=== PATIENT | female | born 1980 | race Caucasian/White ===

== ENCOUNTER 2019-12-17 15:13 | Emergency (ER) | payer OTHER, SELFPAY ==
[2019-12-17 15:19] VITALS: BP 159/76; PULSE 100; RESP 18; TEMP 36.9; O2SAT 100
--- NOTE | 2019-12-17 15:38 | ED.URI ---
HPI - URI/Sore Throat General Chief Complaint: Upper Respiratory Infection Stated Complaint: cough/fever Time Seen by Provider: 12/17/19 15:38 Source: patient and RN notes reviewed Mode of arrival: ambulatory Limitations: no limitations History of Present Illness HPI Narrative: Pt is a 39 y/o female who presents to the with c/o a cough that started Tuesday (3 days ago). She reports associated fever of 99.9, KRISHNA, rhinorrhea, and myalgia. 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 Reports fever of 99.9 and myalgia Eyes: N0: Redness,discharge Ears/Nose/Throat: No: Epistaxis,ear discharge. Reports rhinorrhea Respiratory: Denies: Hemoptysis. Reports cough Gastrointestinal: No Vomiting, Bleeding-rectal Skin: No Lumps, eruption Neurologic: No Focal Weakness,Sz. Reports KRISHNA Hematologic: Denies: Petechiae/Purpura Psychiatric: No: Suicidal ideation All Other Systems: Reviewed and Negative PMFSH Past Medical History Medical History (Updated 12/17/19 @ 15:[address] MD) HTN (hypertension) MVP (mitral valve prolapse) Surgical History Surgical History (Updated 12/17/19 @ 15:46 by Jordyn Ryan) No significant past surgical history Social History Social History (Updated 12/17/19 @ 15:46 by Jordyn Ryan) Smoking status: Current some day smoker Comments At time of signature, agree with nursing past medical, surgical, social and family history. There is no relevant family history pertinent to the presenting complaint Exam Narrative: Exam Narrative: General Appearance: Well appearing, Well nourished EYE: PERRLA, Conjunctiva clear Ears: Auditory canal normal, TM normal Nose: Rhinorrhea, Mucousal erythema Mouth/Throat: MM moist, Uvula midline, Pharyngeal erythema Neck: Supple, No adenopathy Respiratory: No respiratory distress, Breath sounds equal, Clear to auscultation Cardiovascular: RRR, No JVD Musculoskeletal: Non tender, Normal strength Skin: Warm, Dry Neurological: A&O x3, CN II-XII intact Psychiatric: Normal mood, Normal affect Course Vital Signs Vital signs: Vital Signs Temperature 98.4 F 12/17/19 15:19 Pulse Rate 100 12/17/19 15:19 Respiratory Rate 18 12/17/19 15:19 Blood Pressure 159/76 H 12/17/19 15:19 Pulse Oximetry 100 12/17/19 15:19 Temperature 98.4 F 12/17/19 15:19 Pulse Rate 100 12/17/19 15:19 Respiratory Rate 18 12/17/19 15:19 Blood Pressure 159/76 H 12/17/19 15:19 Pulse Oximetry 100 12/17/19 15:19 MDM - URI/Sore Throat Lab Data Labs: Influenza A Screen Negative Reference Range: Negative Influenza B Screen Negative Reference Range: Negative Discharge Plan Discharge Clinical Impression: Influenza-like illness Patient Disposition: Home, Self-Care Condition: Stable Instructions: Influenza (ED), Acute Bronchitis (ED) Prescriptions: New azithromycin 250 mg tablet See Rx Instructions .ROUTE .COMPLEX Qty: 6 RF: 0 codeine-guaifenesin 10-100 mg/5 mL liquid 7.5 ml PO Q6H PRN (Reason: cough) Qty: 118 RF: 0 benzonatate [Tessalon Perles] 100 mg capsule 100 mg PO TID Qty: 20 RF: 1 oseltamivir [Tamiflu] 75 mg capsule 75 mg PO Q12H 5 Days Qty: 10 RF: 0 No Action met
== END 2019-12-17 15:55 | disposition home or self-care (01) ==
PROVIDERS: Emergency Provider Emergency Medicine
DX: R05 Cough (principal); R50.9 Fever, unspecified; I10 Essential (primary) hypertension; I34.1 Nonrheumatic mitral (valve) prolapse
CPT/HCPCS: 87804; 99213; G0463

== ENCOUNTER 2020-11-01 18:05 | Emergency (ER) | payer OTHER, SELFPAY ==
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
[2020-11-01 18:13] VITALS: BP 148/91; PULSE 85; RESP 22; TEMP 36.6; O2SAT 99
[2020-11-01 19:00] VITALS: BP 163/95; PULSE 93; RESP 13; O2SAT 98
[2020-11-01 20:00] VITALS: BP 151/82; PULSE 93; RESP 19; TEMP 36.8; O2SAT 99
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
[2020-11-01] MEDS: methocarbamoL 750 MG TABLET PO (22:21)
[2020-11-01] MEDS: IBUPROFEN 400 MG TABLET 800 MG PO (22:22)
[2020-11-01 22:26] VITALS: BP 147/84; PULSE 97; RESP 16; TEMP 36.8; O2SAT 97
== END 2020-11-01 22:28 | disposition home or self-care (01) ==
PROVIDERS: Emergency Provider Emergency Medicine
DX: S29.012A Strain of muscle and tendon of back wall of thorax, initial encounter (principal); I10 Essential (primary) hypertension; I34.1 Nonrheumatic mitral (valve) prolapse; F17.200 Nicotine dependence, unspecified, uncomplicated; M50.323 Other cervical disc degeneration at C6-C7 level; V49.40XA Driver injured in collision with unspecified motor vehicles in traffic accident, initial encounter
CPT/HCPCS: 70450; 71045; 72125; 72128; 72131; 72170; 99284; A9270

== ENCOUNTER 2021-05-26 06:15 | Emergency (ER) | payer OTHER, SELFPAY ==
[2021-05-26] VITALS (10 sets, daily range): BP systolic 126–181; BP diastolic 67–94; PULSE 66–88; RESP 11–93; TEMP 36.6–36.8; O2SAT 96–100
--- NOTE | 2021-05-26 08:10 | ED.GENADULT ---
HPI - General Adult General Chief complaint: Unspecified Stated complaint: bug in ear Time Seen by Provider: 05/26/21 07:03 Source: patient and RN notes reviewed Mode of arrival: ambulatory Limitations: no limitations History of Present Illness HPI narrative: This is a 41 year old female who presents for removal of bug in right ear. She reports approximately 1 hour ago a bug got into her right ear. Prior to my evaluation, she states removal has been attempted with irrigation without success. She reports her right ear canal is painful. She does not feel this bug moving any more. Onset (ago): hour(s) (1) Related Data Home Medications Medication Instructions Recorded Confirmed metoprolol tartrate 25 mg PO DAILY 09/11/19 05/26/21 escitalopram oxalate 10 mg tablet 10 mg PO DAILY 05/26/21 05/26/21 Allergies Allergy/AdvReac Type Severity Reaction Status Date / Time No Known Allergies Allergy Verified 05/26/21 11:04 Review of Systems Review of Systems: All systems reviewed & are unremarkable except as noted in HPI and below PMFSH Past Medical History Medical History HTN (hypertension) MVP (mitral valve prolapse) Surgical History Surgical History No significant past surgical history Family History Family History Father Diabetes mellitus Hypertension Cerebrovascular accident Mother Depression Sibling Depression Other Depression Social History Social History Smoking status: Current some day smoker Alcohol intake: never Substance use: never Substance use type: does not use Gender identity (if verbalized by the patient): Female Exam Const: General: healthy appearing, alert, awake and Physically active Orientation/consciousness: oriented to person, oriented to place, oriented to time and patient oriented x3 HENMT: Head: normocephalic and atraumatic Ears: other (right ear with black insect with wings in canal, no bleeding) Face and sinus: normal facial exam, sinuses nontender and face symmetric Mouth: Yes Normal oral and palatal mucosa present, Yes lip normal, Yes oropharynx normal and Yes moist mucous membranes Throat: posterior oropharynx normal, tonsils normal and uvula midline Chest: Chest palpation & inspection: normal inspection of the chest Resp: Effort & Inspection: normal respiratory effort and able to speak in complete sentences Auscultation: clear to auscultation bilaterally Psych: Appearance: grossly normal and well kempt Mental Status: mental status grossly normal Course Reevaluation(s) Reevaluation #1: I attempted to remove insect from patient. Patient unable to tolerate removal in ER even after lidocaine jelly. She was given 4 versed without much affect. . She is agreeable to go to see ENT today for foreign body removal. I made appointment for patient with Dr. Crockett at 11 am Date: 05/26/21 Time: 09:45 Consultations Consultation #1: I spoke with DR. Crockett who states patient can be seen in office. He recommends calling clinic to make patient an appointment. Date: 05/26/21 Time: 09:00 Vital Signs Vital signs: Vital Signs Temperature 97.9 F 05/26/21 06:14 Pulse Rate 88 05/26/21 06:14 Respiratory Rate 22 H 05/26/21 06:14 Blood Pressure 144/78 H 05/26/21 06:14 Pulse Oximetry 100 05/26/21 06:14 Temperature 97.8 F 05/26/21 09:42 Pulse Rate 71 05/26/21 10:23 Respiratory Rate 17 05/26/21 10:23 Blood Pressure 144/75 H 05/26/21 10:23 Pulse Oximetry 98 05/26/21 10:23 Procedures Foreign Body Removal Foreign Body #1: Foreign Body Removal Date: 05/26/21 Site: right and ear Description of foreign body: insect Sedation/Analgesia: other (versed 4 mg) Complications: sandy
[2021-05-26] MEDS: HYDROGEN PEROXIDE 3% SOLN(*SP) 473 ML BOTTLE (08:34)
--- NOTE | 2021-05-26 08:40 | PC.NURSE ---
ED at bedside for foreign body removal in the right ear. Consent obtained prior to procedure. 0844 1mg mid[address] given by Dr. Matson 0844 1mg [address] given by Dr. Matson 0847 [address]mg [address] given by Dr. Matson
[2021-05-26] MEDS: SODIUM CHLORIDE 0.9% IV 1,000 ML 1000 ML (08:44)
[2021-05-26] MEDS: MIDAZOLAM HCL (*CRX) 10 MG/2 ML VIAL (09:17)
== END 2021-05-26 10:24 | disposition home or self-care (01) ==
PROVIDERS: Emergency Provider General Practice
DX: T16.1XXA Foreign body in right ear, initial encounter (principal); X58.XXXA Exposure to other specified factors, initial encounter
CPT/HCPCS: 69200; 99285; A9270; J2250; J7030

== ENCOUNTER 2021-08-12 13:44 | Emergency (ER) | payer OTHER, SELFPAY ==
[2021-08-12 13:56] VITALS: BP 154/94; PULSE 104; RESP 18; TEMP 37.4; O2SAT 98
--- NOTE | 2021-08-12 14:30 | ED.URI ---
HPI - URI/Sore Throat General Chief Complaint: Upper Respiratory Infection Stated Complaint: Cough,Chest Congestion,Throat Irritation,Nausea Source: patient and RN notes reviewed Limitations: no limitations History of Present Illness HPI Narrative: The vaccinated patient, a smoker/nondrinker, presents with 1 to 2-day worsening of 2-week history of sinus headache, fever 101 for couple days, cough, congestion and occasional sneezing . Nasal discharge is usually clear, now turned greenish; despite OTC preparations like Bertha-D. She had a Covid test this week; no sore throat, earache, vomiting/diarrhea-but she has nausea, lightheadedness; no loss of taste/smell, CP, rash, S OB Related Data Home Medications Medication Instructions Recorded Confirmed metoprolol tartrate 25 mg PO DAILY 09/11/19 08/12/21 escitalopram oxalate 10 mg tablet 10 mg PO DAILY 05/26/21 08/12/21 Allergies Allergy/AdvReac Type Severity Reaction Status Date / Time No Known Allergies Allergy Verified 08/12/21 13:56 Review of Systems Review of Systems: General/Constitutional: No weight loss,REPORTS fever Eyes: N0: Redness,discharge Ears/Nose/Throat: No: Epistaxis,ear discharge Respiratory: Denies: Hemoptysis Gastrointestinal: No Vomiting, Bleeding-rectal Skin: No Lumps, eruption Neurologic: No Focal Weakness,Sz Hematologic: Denies: Petechiae/Purpura Psychiatric: No: Suicida ideationl All Other Systems: Reviewed and Negative [facility] Past Medical History Medical History HTN (hypertension) MVP (mitral valve prolapse) Surgical History Surgical History No significant past surgical history Family History Family History Father Diabetes mellitus Hypertension Cerebrovascular accident Mother Depression Sibling Depression Other Depression Social History Social History Smoking status: Current some day smoker Alcohol intake: never Substance use: never Substance use type: does not use Gender identity (if verbalized by the patient): Female Comments At time of signature, agree with nursing past medical, surgical, social and family history. There is no relevant family history pertinent to the presenting complaint Exam Narrative: General Appearance: Well appearing, Well nourished EYE: PERRLA, Conjunctiva clear Ears: Auditory canal normal, TM normal Nose: Rhinorrhea, Mucousal erythema Mouth/Throat: MM moist, Uvula midline, Pharyngeal erythema Neck: Supple, No adenopathy Respiratory: No respiratory distress, Breath sounds equal, Clear to auscultation Cardiovascular: RRR, No JVD Musculoskeletal: Non tender, Normal strength Skin: Warm, Dry Neurological: A&O x3, CN II-XII intact Psychiatric: Normal mood, Normal affect Course Vital Signs Vital signs: Vital Signs Temperature 99.4 F 08/12/21 13:56 Pulse Rate 104 H 08/12/21 13:56 Respiratory Rate 18 08/12/21 13:56 Blood Pressure 154/94 H 08/12/21 13:56 Pulse Oximetry 98 08/12/21 13:56 Temperature 99.4 F 08/12/21 13:56 Pulse Rate 104 H 08/12/21 13:56 Respiratory Rate 18 08/12/21 13:56 Blood Pressure 154/94 H 08/12/21 13:56 Pulse Oximetry 98 08/12/21 13:56 Discharge Plan Discharge Clinical Impression: Sinus headache, Cough Patient Disposition: Home, Self-Care Condition: Stable Instructions: Antibiotic Form, Rhinosinusitis (ED) Additional Instructions: You may try OTC preparations like Bertha, Flonase, etc. Prescriptions: New benzonatate 100 mg capsule 100 mg PO TID PRN (Reason: cough) Qty: 20 RF: 2 azelastine 137 mcg (0.1 %) aerosol,spray 137 mcg NASAL Q12H Qty: 30 RF: 0 cefuroxime axetil 500 mg tablet 500 mg PO Q12H Qty: 14 RF: 0 No Action metoprolol tartra
[2021-08-13 17:50] LABS: SARS-CoV-2 RNA PCR Negative
== END 2021-08-12 14:36 | disposition home or self-care (01) ==
PROVIDERS: Emergency Provider Emergency Medicine
DX: J32.9 Chronic sinusitis, unspecified (principal); R05.9 Cough, unspecified; Z20.822 Contact with and (suspected) exposure to COVID-19; F17.200 Nicotine dependence, unspecified, uncomplicated; I10 Essential (primary) hypertension; I34.1 Nonrheumatic mitral (valve) prolapse
CPT/HCPCS: 99213; C9803; G0463; U0003; U0005

== ENCOUNTER 2022-08-16 14:08 | Emergency (ER) | payer OTHER, SELFPAY ==
--- NOTE | 2022-08-16 14:16 | ED.UPPEXIN ---
HPI - Extremity Injury (Upper) General Chief Complaint: Upper Respiratory Infection Stated Complaint: cold symptoms/rt eye pain and swelling Time Seen by Provider: 08/16/22 14:22 Source: patient Mode of arrival: ambulatory Limitations: no limitations History of Present Illness HPI narrative: Ms. Palma is a 42-year-old female patient presenting to clinic today with complaints of upper respiratory infection and right eye pain and swelling x 10 days. She reports she has had sinus pressure, congestion, right ear pain, and right eyelid swelling. She denies any known fever chills. She has taken Mucinex, Sudafed, Viola-Aurelia for her symptoms. She states she just woke up this morning and her right eyelid was swollen. She reports some pain to this. Denies any itching Related Data Home Medications Medication Instructions Recorded Confirmed metoprolol tartrate 25 mg tablet 25 mg PO DAILY 09/11/19 08/16/22 escitalopram oxalate 10 mg tablet 20 mg PO DAILY 05/26/21 08/16/22 (Lexapro) Allergies Allergy/AdvReac Type Severity Reaction Status Date / Time No Known Allergies Allergy Verified 08/16/22 14:18 Review of Systems Review of Systems: Pertinent positives per HPI. Patient denies any fever, chills, rash, headache, visual changes, dizziness, cough, shortness of breath, chest pain, palpitations, nausea, vomiting, diarrhea, constipation, abdominal pain, or any urinary issues. [facility] Past Medical History Medical History HTN (hypertension) MVP (mitral valve prolapse) Surgical History Surgical History No significant past surgical history Family History Family History Father Diabetes mellitus Hypertension Cerebrovascular accident Mother Depression Sibling Depression Other Depression Social History Social History Smoking status: Current some day smoker Alcohol intake: never Substance use: never Substance use type: does not use Gender identity (if verbalized by the patient): Female Comments At the time of my signature, I reviewed and agree with the nursing past medical, surgical, social, and family history. There is no relevant family history pertinent to the patient complaint. Exam Narrative: General: Well-developed, well nourished, in no apparent distress Head: Normocephalic, atraumatic Eyes: Pupils equally round and reactive to light bilaterally, EOM intact, sclera and conjunctive clear, no discharge, lids normal Ears: Left TMs intact and clear, right TM intact, bulging, opaque, ear canals clear, no drainage, grossly hearing normal. Nose: Nares patent, clear nasal discharge, severe inflammation, maxillary sinus tenderness. Mouth: Oral pharynx without lesions or masses, good dentition, MMM. Postnasal drip, oropharynx red Neck: Supple, trachea midline, no enlargement of anterior or posterior cervical nodes, no thyroid masses or goiter palpable. Cardio: Regular rate and rhythm, s1 and s2 normal, no murmur appreciated. Resp: Clear to auscultation bilaterally, no rhonchi, rales, wheezing or rubs Course Course Emergency Course: Portions of this record may have been created with voice recognition software. Level of Care: Express Care Visit Vital Signs Vital signs: Vital signs reviewed MDM - Extremity Injury (Upper) MDM Narrative Medical decision making narrative: At the time of visit patient is resting comfortably on exam table. I suspect the patient has serous otitis media the right ear as well as a sinus infection. She also has right upper eyelid swelling that could be possible stye formation versus an allergy response. Supportive measures were discussed with the patient she voiced understanding of discharge instructions and agrees to tr
[2022-08-16 14:22] VITALS: BP 136/69; PULSE 100; RESP 18; TEMP 36.7; O2SAT 99
== END 2022-08-16 14:38 | disposition home or self-care (01) ==
PROVIDERS: Emergency Provider Nurse Practitioner Family; PCP Family Medicine
DX: J01.90 Acute sinusitis, unspecified (principal); H57.11 Ocular pain, right eye; H02.843 Edema of right eye, unspecified eyelid; H65.01 Acute serous otitis media, right ear; F17.290 Nicotine dependence, other tobacco product, uncomplicated; I10 Essential (primary) hypertension; I34.1 Nonrheumatic mitral (valve) prolapse
CPT/HCPCS: 99213; G0463

== ENCOUNTER 2023-10-27 17:28 | Emergency (ER) | payer OTHER, SELFPAY ==
--- NOTE | 2023-10-27 17:39 | ED.URI ---
HPI - URI/Sore Throat General Chief Complaint: Upper Respiratory Infection Stated Complaint: cough,sorethroat Time Seen by Provider: 10/27/23 17:39 Source: patient Mode of arrival: ambulatory Limitations: no limitations History of Present Illness HPI Narrative: Nora is a 43-year-old female patient presenting to the clinic today with complaints of cough, headache, congestion, body aches, fever and sore throat x3 days. She reports highest fever was 101.8. Denies any chest pain or shortness of breath. MD elicited complaint: sore throat and nasal congestion Related Data Home Medications Medication Instructions Recorded Confirmed metoprolol tartrate 25 mg tablet 25 mg PO DAILY 09/11/19 10/27/23 irbesartan 300 mg tablet mg 10/27/23 10/27/23 Allergies Allergy/AdvReac Type Severity Reaction Status Date / Time No Known Allergies Allergy Verified 10/27/23 17:52 Review of Systems Review of Systems: Pertinent positives per HPI. Patient denies any rash, headache, visual changes, dizziness, shortness of breath, chest pain, palpitations, nausea, vomiting, diarrhea, constipation, abdominal pain, or any urinary issues. PMFSH Past Medical History Medical History HTN (hypertension) MVP (mitral valve prolapse) Surgical History Surgical History No significant past surgical history Family History Family History Father Diabetes mellitus Hypertension Cerebrovascular accident Mother Depression Sibling Depression Other Depression Social History Social History Smoking status: Current some day smoker Alcohol intake: never Substance use: never Substance use type: does not use Gender identity (if verbalized by the patient): Female Comments At the time of my signature, I reviewed and agree with the nursing past medical, surgical, social, and family history. There is no relevant family history pertinent to the patient complaint. Exam Narrative: General: Well-developed, well nourished, in no apparent distress Head: Normocephalic, atraumatic Eyes: Pupils equally round and reactive to light bilaterally, EOM intact, sclera and conjunctive clear, no discharge, lids normal Ears: TMs intact and congested, ear canals clear, no drainage, grossly hearing normal. Nose: Nares patent, clear nasal discharge, no inflammation, no sinus tenderness. Mouth: Oral pharynx without lesions or masses, good dentition, MMM. Postnasal drip Neck: Supple, trachea midline, no enlargement of anterior or posterior cervical nodes, no thyroid masses or goiter palpable. Cardio: Regular rate and rhythm, s1 and s2 normal, no murmur appreciated. Resp: Clear to auscultation bilaterally, no rhonchi, rales, wheezing or rubs Course Course Emergency Course: Portions of this record may have been created with voice recognition software. Level of Care: Express Care Visit Vital Signs Vital signs: Vital signs reviewed MDM - URI/Sore Throat MDM Narrative Medical decision making narrative: At the time of visit patient is resting comfortably on the exam table. Patient appears to be nontoxic. Labs: COVID and influenza testing was performed. COVID test was negative. Influenza test was positive for influenza A. Plan: Patient has influenza A. Work note was given. Supportive measures were discussed with the patient and they voiced understanding discharge instructions and agrees to treatment plan. Return precautions reviewed Differential Diagnosis Differential diagnosis: Likely upper respiratory infection, otitis media, sinusitis, viral infection, bronchitis, influenza, pharyngitis and other (COVID) Discharge Plan Discharge Clinical Impression: Influenza A Patient Disposition: Home, Self-Car
[2023-10-27 17:43] VITALS: BP 132/76; PULSE 89; RESP 18; TEMP 36.8; O2SAT 98
== END 2023-10-27 18:20 | disposition home or self-care (01) ==
PROVIDERS: Emergency Provider Nurse Practitioner Family; PCP Family Medicine
DX: J10.1 Influenza due to other identified influenza virus with other respiratory manifestations (principal); I10 Essential (primary) hypertension; F17.200 Nicotine dependence, unspecified, uncomplicated; Z79.899 Other long term (current) drug therapy; Z20.822 Contact with and (suspected) exposure to COVID-19
CPT/HCPCS: 87426; 87804; 99213; G0463

== ENCOUNTER 2024-09-30 12:47 | Emergency (ER) | payer MEDICAID, SELFPAY ==
[2024-09-30 13:07] VITALS: BP 133/83; PULSE 93; RESP 16; TEMP 37.1; O2SAT 100
--- NOTE | 2024-09-30 14:11 | ED_ITS ---
HPI - URI/Sore Throat General Chief Complaint: Upper Respiratory Infection Stated Complaint: Thinks has the flu Source: patient and RN notes reviewed Mode of arrival: ambulatory Limitations: no limitations History of Present Illness HPI Narrative: 44-year-old female with a history of atrial fibrillation presented for complaint of headache, body aches, sinus pressure/congestion, fever/chills. Onset this morning. States she woke with fever of 103. Denies sob, wheezing, n/v/d. Taking ibuprofen. MD elicited complaint: cough Related Data Home Medications ?Medication ?Instructions ?Recorded ?Confirmed ?Last Taken ?Type metoprolol tartrate 25 mg tablet 25 mg PO DAILY 09/11/19 10/27/23 Unknown History irbesartan 300 mg tablet 300 mg DIRECTED 10/27/23 10/27/23 Unknown History Allergies Allergy/AdvReac Type Severity Reaction Status Date / Time No Known Allergies Allergy Verified 09/30/24 14:16 Review of Systems Review of Systems: CONSTITUTIONAL: Endorses malaise, chills, sweats, fever EYES: Denies visual changes, redness, or discharge ENT: Reports rhinorrhea, congestion, sinus pain, otalgia, sore throat CARDIOVASCULAR: Denies chest pain, palpitations, edema RESPIRATORY: Reports cough, post nasal drainage. Denies dyspnea GASTROINTESTINAL: Denies abdominal pain, nausea, vomiting, diarrhea MUSCULOSKELETAL: Endorses myalgia NEUROLOGIC: Endorses headache PMFSH Past Medical History Medical History (Updated 09/30/24 @ 14:20 by Pretty Baum APRN) Atrial fibrillation HTN (hypertension) MVP (mitral valve prolapse) Surgical History Surgical History (Updated 09/30/24 @ 14:20 by Pretty Baum APRN) History of cardiac radiofrequency ablation No significant past surgical history Family History Family History Father Diabetes mellitus Hypertension Cerebrovascular accident Mother Depression Sibling Depression Other Depression Social History Social History Smoking status: Current some day smoker Alcohol intake: never Substance use: never Substance use type: does not use Gender identity (if verbalized by the patient): Female Exam Narrative: GENERAL: Ill-appearing, nontoxic EYES: conjunctivae clear ENT: Mucous membranes moist. TMs pearly law with dull light reflex bilaterally; no tragal tenderness. Oropharynx not erythematous without lesions or exudate, no drooling, no hoarseness, no trismus, uvula midline. No tripod positioning, muffled voice, soft palate or pharyngeal wall bulging NECK: Supple. No lymphadenopathy CHEST: Clear to auscultation, breath sounds equal. No wheezing, rhonchi, rales, or stridor. No respiratory distress, speaks in full sentences. HEART: irregular rhythm. No murmur heard. SKIN: Warm, dry NEURO: Alert and oriented x3. PSYCH: Normal mood and affect Course Course Emergency Course: Patient is aware of diagnosis, understands and agrees to treatment plan. Anticipatory guidance given. Patient agrees to follow-up as directed and is aware of reasons to seek care at the emergency department. Portions of this record may have been created with voice recognition software Level of Care: Express Care Visit Vital Signs Vital signs: Vital Signs Temperature 98.7 F 09/30/24 13:07 Pulse Rate 93 09/30/24 13:07 Respiratory Rate 16 09/30/24 13:07 Blood Pressure 133/83 09/30/24 13:07 Pulse Oximetry 100 09/30/24 13:07 Temperature 98.7 F 09/30/24 13:07 Pulse Rate 93 09/30/24 13:07 Respiratory Rate 16 09/30/24 13:07 Blood Pressure 133/83 09/30/24 13:07 Pulse Oximetry 100 09/30/24 13:07 reviewed MDM - URI/Sore Throat MDM Narrative Medical decision making narrative: POS covid. Discussed physical exam findings. Advised supportive measures and signs/symptoms to go to the ER. Pt is appropriate for outpt treatment and f/u. Differential Diagnosis Differential diagnosis: Likely upper respiratory infection, sinusitis and viral infection Discharge Plan Discharge Clinical Impression: COVID-19 Patient Disposition: Home, Self-Care Condition: Stable Instructions: COVID-19 (Coronavirus Disease 2019) (ED) Additional Instructions: Your rapid COVID test was positive today. The following updated recommendations have been made by the CDC and local Health Departments, regarding COVID-19: - When people get sick with a respiratory virus, they stay home and away from others. - Return to normal activities when, for at least 24 hours, symptoms are improving overall, and if a fever was present, it has been gone without use of a fever-reducing medication. - Once people resume normal activities, they are encouraged to take additional prevention strategies for the next 5 days to curb disease spread, such as taking more steps for cleaner carpet and upholstery air, enhancing hygiene practices, wearing a well-fitting mask, keeping a distance from others, and/or getting tested for respiratory viruses. - Enhanced precautions are especially important to protect those most at risk for severe illness, including those over 65 and people with weakened immune systems. Rest, stay hydrated. Tylenol and ibuprofen every 8 hours as needed Flonase/nasal spray, Zyrtec, cough syrup cold/flu medications for symptoms as needed Follow up with your primary care provider, call to schedule an appointment. Go to the ER for worsening symptoms or concerns. Patient Language: Maori Prescriptions: No Action metoprolol tartrate 25 mg Tablet 25 mg PO DAILY irbesartan 300 mg tablet 300 mg DIRECTED Follow-up/Referrals: Dennis,Dominick Polk APRN [Primary Care Provider] - Stand Alone Forms: Work/School Release IP Time of Disposition: 14:17
[2024-09-30 14:16] LABS: EDCOVIDSCREEN Negative (Negative); EDINFLUASCREEN Negative (Negative); EDINFLUBSCREEN Negative (Negative); EDSTREPNEGPOS1 Negative (Negative)
--- OUTSIDE RECORDS SUMMARY | 2024-10-07 14:23 | XMS_ITS | Clinical Summary ---
Author Organization [facility] Address [address] [place] [address]. [place] [address] [place] [address] Care Team Providers Care Ecological Economist Name Role Phone Giulia Kirkpatrick MD Primary Care Provider [phone] Allergies No known active allergies Medications metoprolol succinate ER (TOPROL-XL) 50 MG 24 hr tablet Take by mouth daily. Active irbesartan (AVAPRO) 300 MG tablet Take 1 tablet (300 mg total) by mouth daily. Active flecainide (TAMBOCOR) 50 MG tablet Take by mouth 2 (two) times daily. Active magnesium oxide (MAG-OX) 400 (240 Mg) MG tablet Take 1 tablet (400 mg total) by mouth daily. Active Social History Tobacco Use Types Packs/Day Years Used Date Smoking Tobacco: Former Cigarettes - 1994 Smokeless Tobacco: Never Tobacco Cessation:Counseling Given: Not Answered Alcohol Use Standard Drinks/Week Comments Never 0 (1 standard drink = 0.6 oz pur e alcohol) Comments No Sex and Gender Information Value Date Recorded Sex Assigned at Not on file Legal Sex Female 4:10 PM CDT Gender Identity Not on file Sexual Orientation Not on file Last Filed Vital Signs Vital Sign Reading Time Taken Comments Blood Pressure 131/71 03/27/2024 7:35 PM CDT Pulse 60 03/27/2024 7:35 PM CDT Temperature 36.7 ??C (98 ??F) 03/27/2024 7:36 PM CDT Respiratory Rate 15 03/27/2024 7:35 PM CDT Oxygen Saturation 100% 03/27/2024 7:35 PM CDT Inhaled Oxygen Concentration - - Weight 85.7 kg (189 lb) 03/27/2024 4:17 PM CDT Height 162.6 cm (5' 4 ) 03/27/2024 4:17 PM CDT Body Mass Index 32.44 03/27/2024 4:17 PM CDT Plan of Treatment Health Maintenance Due Date Last Done Comments Colorectal Cancer Screening Colonoscopy (10 Years) 1978 Annual Physical 1981 Hepatitis C 1996 DTaP, Tdap and Td Vaccines ( 1 - Tdap) 1997 Hepatitis B Vaccines (1 of 3 - 19+ 3-dose series) 1997 Mammogram Screening 2018 COVID-19 Vaccine (2023-2 5 season) 2024 01/21/2021, 12/21/2020 Influenza Adult (#1) 2024 07/05/2019, 09/04/2018, 07/03/2017 Meningococcal Vaccine Aged Out No santos andrés eligible based on patient's age to complete this topic Pneumococcal Vaccine: Pediatrics (0 to 5 Years) and At-Risk Patients (6 to 64 Years) Aged Out No longer eligible b ased on patient's age to complete this topic RSV Immunizations Under 20 Months Aged Out No longer eligible b ased on patient's age to complete this topic Insurance [employer] Care Teams Ecological Economist Relationship Specialty Start Date End Date Giulia Kirkpatrick MD [address] [place] [address] [place] [address] PCP - General FAMILY PRACTICE 03/27/24
--- OUTSIDE RECORDS SUMMARY | 2024-10-07 14:23 | XMS_ITS | Encounter Summary ---
Author Organization [facility] Address [address] [place] [address] Care Team Providers Care Report Manager Name Role Phone Easton Bryant DO Primary Care Provider [phone] Reason for Visit * Reason Comments Sinusitis Encounter Details Date Type Department Care Team (Late st Contact Info) Description 10/19/2017 3:20 PM HOME OFFICE REPRESENTATIVE Office Visit [facility] AT [address] [phone] Provider, Gisselle Sanchez [place] Acute maxillary sinusitis, recurrence not specified (Primary Dx); Dysfunction of right eustachian tube; Essential hypertension Social History Tobacco Use Types Packs/Day Years Used Date Smoking Tobacco: Former Smokeless Tobacco: Never Sex and Gender Information Value Date Recorded Sex Assigned at Not on file Gender Identity Not on file Sexual Orientation Not on file documented as of this encounter Last Filed Vital Signs Vital Sign Reading Time Taken Comments Blood Pressure 126/88 10/19/2017 3:30 PM HOME OFFICE REPRESENTATIVE Pulse 70 10/19/2017 3:30 PM HOME OFFICE REPRESENTATIVE Temperature 36.9 ??C (98.4 ??F) 10/19/2017 3:30 PM CS T Respiratory Rate 16 10/19/2017 3:30 PM HOME OFFICE REPRESENTATIVE Oxygen Saturation 99% 10/19/2017 3:30 PM HOME OFFICE REPRESENTATIVE Inhaled Oxygen Concentration - - Weight 74.8 kg (165 lb) 10/19/2017 3:30 PM HOME OFFICE REPRESENTATIVE Height 160 cm (5' 3 ) 10/19/2017 3:30 PM HOME OFFICE REPRESENTATIVE Body Mass Index 29.23 10/19/2017 3:30 PM HOME OFFICE REPRESENTATIVE documented in this encounter Patient Instructions * Patient Instructions* Iza Rhoades, BUDGET ENGINEER-MAKING MACHINE CATCHER - 10/19/2017 3:59 PM HOME OFFICE REPRESENTATIVE Images from the original note were not included. Sinusitis CONTACT CENTER ANALYST: Sinusitis is inflammation or infection of your sinuses. It is most often caused by a virus. Acute sinusitis may last up to 12 weeks. Chronic sinusitis lasts longer than 12 weeks. Recurrent sinusitis means you have 4 or more times in 1 year. Common symptoms include the following: ?? Fever ?? Pain, pressure, redness, or swelling around the forehead, cheeks, or eyes ?? Thick yellow or green discharge from your nose ?? Tenderness when you touch your face over your sinuses ?? Dry cough that happens mostly at night or when you lie down ?? Headache and face pain that is worse when you lean forward ?? Tooth pain, or pain when you chew Seek care immediately if: ?? Your eye and eyelid are red, swollen, and painful. ?? You cannot open your eye. ?? You have vision changes, such as double vision. ?? Your eyeball bulges out or you cannot move your eye. ?? You are more sleepy than normal, or you notice changes in your ability to think, move, or talk. ?? You have a stiff neck, a fever, or a bad headache. ?? You have swelling of your forehead or scalp. Contact your healthcare provider if: ?? Your symptoms do not improve after 3 days. ?? Your symptoms do not go away after 10 days. ?? You have nausea and are vomiting. ?? Your nose is bleeding. ?? You have questions or concerns about your condition or care. Treatment for sinusitis: Your symptoms may go away on their own. Your healthcare provider may recommend watchful waiting for up to 10 days before starting antibiotics. You may need any of the following: ?? Acetaminophen decreases pain and fever. It is available without a doctor's order. Ask how much to take and how often to take it. Follow directions. Read the labels of all other medicines you are using to see if they also contain acetaminophen, or ask your doctor or pharmacist. Acetaminophen can cause liver damage if not taken correctly. Do not use more than 4 grams (4,000 milligrams) total of acetaminophen in one day. ?? NSAIDs , such as ibuprofen, help decrease swelling, pain, and fever. This medicine is available with or without a doctor's order. NSAIDs can cause stomach bleeding or kidney problems in certain people. If you take blood thinner medicine, always ask your healthcare provider if NSAIDs are safe foryou. Always read the medicine label and follow directions. ?? Nasal steroid sprays may help decrease inflammation in your nose and sinuses. ?? Decongestants help reduce swelling and drain mucus in the nose and sinuses. They may help you breathe easier. ?? Antihistamines help dry mucus in the nose and relieve sneezing. ?? Antibiotics help treat or prevent a bacterial infection. ?? Take your medicine as directed. Contact your healthcare provider if you think your medicine is not helping or if you have side effects. Tell him or her if you are allergic to any medicine. Keep a list of the medicines, vitamins, and herbs you take. Include the amounts, and when and why you take them. Bring the list or the pill bottles to follow-up visits. Carry your medicine list with you in case of an emergency. Self-care: ?? Rinse your sinuses. Use a sinus rinse device to rinse your nasal passages with a saline (salt water) solution or distilled water. Do not use tap water. This will help thin the mucus in your nose and rinse away pollen and dirt. It will also help reduce swelling so you can breathe normally. Ask your healthcare provider how often to do this. ?? Breathe in steam. Heat a bowl of water until you see steam. Lean over the bowl and make a tent over your head with a large towel. Breathe deeply for about 20 minutes. Be careful not to get too close to the steam or burn yourself. Do this 3 times a day. You can also breathe deeply when you take ahot shower. ?? Sleep with your head elevated. Place an extra pillow under your head before you go to sleep to help your sinuses drain. ?? Drink liquids as directed. Ask your healthcare provider how much liquid to drink each day and which liquids are best for you. Liquids will thin the mucus in your nose and help it drain. Avoid drinks that contain alcohol or caffeine. ?? Do not smoke, and avoid secondhand smoke. Nicotine and other chemicals in cigarettes and cigars can make your symptoms worse. Ask your healthcare provider for information if you currently smoke and need help to quit. E-cigarettes or smokeless tobacco still contain nicotine. Talk to your healthcare provider before you use these products. Prevent the spread of germs that cause sinusitis: Wash your hands often with soap and water. Wash your hands after you use the bathroom, change a child's diaper, or sneeze. Wash your hands before youprepare or eat food. Follow up with your healthcare provider as directed: You may be referred to an ear, nose, and throat specialist. Write down your questions so you remember to ask them during your visits. ?? 2017 [employer] Information is for End User's use only and may not be sold, redistributed or otherwise used for commercial purposes. All illustrations and images included in CareNotes?? are the copyrighted property of [employer]. or [employer]. The above information is an unpaid intern only. It is not intended as medical advice for individual conditions or treatments. Talk to your doctor, nurse or pharmacist before following any medical regimen to see if it is safe and effective for you. Eustachian Tube Dysfunction WHAT YOU NEED TO KNOW: What is eustachian tube dysfunction? Eustachian tube dysfunction (ETD) is a condition that preventsyour eustachian tubes from opening properly. It can also cause them to become blocked. Eustachian tubes connect your middle ear to the back of your nose and throat. These tubes open and allow air to flow in and out when you sneeze, swallow, or yawn. What causes or increases my risk of ETD? ETD may be caused by swelling or buildup of mucus in your eustachian tubes. Allergies, a cold, or sinus infection can increase your risk for ETD. Smoking alsoincreases your risk for ETD. What are the signs and symptoms of ETD? ?? Fullness or pressure in your ears ?? Muffled hearing ?? Pain in one or both ears ?? Ringing in your ears ?? Popping or clicking feeling in your ears ?? Trouble keeping your balance How is ETD diagnosed? Your healthcare provider will ask about your symptoms. He will examine your ears, your nose, and the back of your throat. He may also do a hearing test. How is ETD treated? Your ETD may get better on its own without any treatment. You may need any of the following: ?? Exercises such as swallowing, yawning, or chewing gum may help to open your eustachian tubes. Your healthcare provider may also recommend that you take a deep breath and then blow with your mouth shut and your nostrils pinched closed. ?? Air pressure devices push air into your nose and eustachian tubes to help relieve air pressure in your ear. ?? Treatment for allergies such as decongestants, antihistamines, and nasal steroids may improve ETD. They may help decrease swelling of the eustachian tubes. ?? Ear tubes may help to keep your middle ear open. During this procedure, your healthcare providerwill cut a small hole in your eardrum. ?? A myringotomy is procedure to make a small cut in your eardrum and suction out fluid from your middle ear. ?? Tuboplasty is a procedure to widen your eustachian tubes. When should I contact my healthcare provider? ?? Your symptoms do not improve or get worse. ?? You have a fever. ?? You have any hearing loss. ?? You have questions or concerns about your condition or care. CARE AGREEMENT: You have the right to help plan your care. Learn about your health condition and how it may be treated. Discuss treatment options with your caregivers to decide what care you want to receive. You always have the right to refuse treatment. The above information is an unpaid intern only. It is not intended as medical advice for individual conditions or treatments. Talk to your doctor, nurse or pharmacist before following any medical regimen to see if it is safe and effective for you. ?? 2017 [employer] Information is for End User's use only and may not be sold, redistributed or otherwise used for commercial purposes. All illustrations and images included in CareNotes?? are the copyrighted property of [employer] or [employer]. OFFICE REPRESENTATIVE documented in this encounter Progress Notes * Iza Rhoades APRN-CNP - 10/19/2017 3:53 PM CST Subjective: Nora Palma is a 37 y.o. female who presents for evaluation: Chief Complaint Patient presents with ??? Sinusitis Primary Care Physician is Easton Bryant DO. Symptoms include sinus congestion, and runny nose, Onset of symptoms was 2-3 months ago, gradually worsening since that time. Pt also has headache and neck, and now right ear pain for approx. 1 month. She is drinking moderate amounts of fluids. Evaluation to date: none. Treatment to date: sudafed No Known Allergies Outpatient Prescriptions Marked as Taking for the 10/19/17 encounter (Office Visit) with Provider, Gisselle Lovett Medication Sig ??? metoprolol succinate XL 24hr (TOPROL XL) 25 MG tablet Take 25 mg by mouth once daily ??? fluticasone propionate (FLONASE) 50 MCG/ACT nasal spray [place] 2 sprays into each nostril once daily ??? amoxicillin-clavulanate (AUGMENTIN) 875-125 MG tablet Take 1 tablet by mouth 2 times daily withmorning and evening meal for 10 days Past Medical History: Diagnosis Date ??? Hypertension ??? Mitral valve prolapse Social History Social History ??? Marital status: Single Spouse name: N/A ??? Number of children: N/A ??? Years of education: N/A Occupational History ??? Not on file. Social History Main Topics ??? Smoking status: Former Smoker ??? Smokeless tobacco: Never Used ??? Alcohol use Not on file ??? Drug use: Not on file ??? Sexual activity: Not on file Other Topics Concern ??? Not on file Social History Narrative ??? No narrative on file Medications reviewed. Review of Systems Pertinent items are noted in HPI Constitutional: Negative Eyes: Negative Ears, nose, mouth, and throat: right ear pain, sinus congestion, nasal congestion, runny nose, Respiratory: Negative Cardiovascular: Negative Gastrointestinal: Negative Genitourinary:Negative Skin: Negative Musculoskeletal:Negative Neurological: Positive for headaches Objective: BP 126/88 (BP SITE: LEFT ARM, BP POSITION: SITTING, BP CUFF SIZE: Adult) Pulse 70 Temp 98.4 ??F (Oral) Resp 16 Ht 1.6 m (5' 3 ) Wt 74.8 kg (165 lb) SpO2 99% BMI 29.23 kg/m2 Skin: Physical Exam Exam General appearance: alert, cooperative, no distress, oriented to person, place, and time, wellappearing Head: normocephalic, without trauma Eyes: sclera and conjunctiva clear, EOMI and PERRLA, lids normal Ears: bilateral canals clear, Left: tympanic membranes normal, Right: fluid noted behind TM, no erythema or bulging. hearing intact to voice Nose: nares open; no septal deviation is noted, mucosa erythematous and swollen, maxillary tenderness bilaterally, frontal tenderness bilaterally Throat: no mucous membrane abnormalities, lips, mucosa, and tongue normal; teeth and gums normal Neck: range of motion is intact, no masses, Nodes: mild, benign-appearing anterior cervical adenopathy Lungs: breath sounds normal and symmetric; no rales or wheezes Heart: regular rhythm, normal S1 and S2, without murmurs, gallops or rubs Neurologic: mental status normal; alert and oriented X 3; Assessment: . Encounter Diagnoses Name Primary? Acute maxillary sinusitis, recurrence not specified Yes ??? Dysfunction of right eustachian tube ??? Essential hypertension Plan: Discussed the dx and tx of sinusitis. Suggested symptomatic OTC remedies. Antibiotics per orders. Nasal steroids per orders. RTC prn. -Drink plenty of fluids and get plenty of rest You can take tylenol as needed for pain and discomfort as needed (per package directions). You can take Coricidin as needed (per package directions). Avoid other decongestants due to the risk of increasing your blood pressure. Monitor blood pressure at least 2-3 times per week during illness, call your Primary physician or go to the ER if blood pressure is greater than 160/90. -If your symptoms worsen or persist over the next 48-72 hours, follow up with your Primary Care Provider, ER, or an Urgent Care. Continue to follow up with Easton Bryant DO as directed. After Visit Summary reviewed with patient. The patient indicates understanding of these issues and agrees with the plan. Patient discharged to Home .Iza Rhoades APRN-RENA 10/19/2017 4:02 PM Orders Placed This Encounter ??? fluticasone propionate (FLONASE) 50 MCG/ACT nasal spray Sig: [place] 2 sprays into each nostril once daily Dispense: 1 bottles Refill: 0 ??? amoxicillin-clavulanate (AUGMENTIN) 875-125 MG tablet Sig: Take 1 tablet by mouth 2 times daily with morning and evening meal for 10 days Dispense: 20 tablet Refill: 0 No results found for this or any previous visit (from the past 24 hour(s)). OFFICE REPRESENTATIVE documented in this encounter Plan of Treatment Not on file documented as of this encounter Visit Diagnoses Diagnosis Acute maxillary sinusitis, recurrence not specified- Primary Dysfunction of right eustachian tube Dysfunction of Eustachian tube Essential hypertension documented in this encounter Care Teams Report Manager Relationship Specialty Start Date End Date Easton Bryant DO PCP - General Internal Medicine 10/19/17 documented as of this encounter
--- OUTSIDE RECORDS SUMMARY | 2024-10-07 14:23 | XMS_ITS | Encounter Summary ---
Author Organization [facility] Address [address] [place] [address]. [place] [address] [place] [address] Care Team Providers Care Leadership Program Intern Name Role Phone Giulia Kirkpatrick MD Primary Care Provider [phone] Reason for Visit * Reason Comments Dizziness Encounter Details Date Type Department Care Team ([facility] Contact Info) Description 03/27/2024 4:21 PM CDT - 03/27/2024 7:50 PM CDT Emergency [facility] Emergency Room [id number] [place] [address] Tima Hanna MD [address] [place] [id number] Dizziness Discharge Disposition: Home or Self Care (Routine Discharge) Social History Tobacco Use Types Packs/Day Years [...] Mass Index 32.44 03/27/2024 4:17 PM CDT documented in this encounter Discharge Instructions * Discharge Instructions* Tima Hanna MD - 03/27/2024 7:06 PM CDT Increase oral fluids intake. Avoid strenuous activity and avoid extreme heat conditions. Follow-up your primary care doctor in 2 to 3 days. Return to ED if patient worsens. * Attachments The following attachments cannot be sent through Care Everywhere. * Heat Illness ED ([place]) documented in this encounter Medications at Time of Discharge flecainide (TAMBOCOR) 50 MG tablet Take by mouth 2 (two) times daily. irbesartan (AVAPRO) 300 MG tablet Take 1 tablet (300 mg total) by mouth daily. magnesium oxide (MAG-OX) 400 (240 Mg) MG tablet Take 1 tablet (400 mg total) by mouth daily. metoprolol succinate ER (TOPROL-XL) 50 MG 24 hr tablet Take by mouth daily. documented as of this encounter ED Notes * Tima Hanna MD - 03/27/2024 5:45 PM CDT Chief Complaint Chief Complaint Patient presents with Dizziness History of Present Illness Patient is a 44-year-old female who presents to complaints of dizziness and lightheadedness just prior to coming to ED. She reports that she was working out in extreme heat to conditions just prior to onset of symptoms. She started to have generalized muscle cramps. She also complained of nausea however no vomiting. She complained of some chest tightness and discomfort during the episode. No cough or sore throat. No fever or chills. Medical History ALLERGIES: Review of patient's allergies indicates: No Known Allergies MEDICATIONS: Prior to Admission medications Medication Sig Start Date End Date Taking? Authorizing Provider flecainide (TAMBOCOR) 50 MG tablet Take by mouth 2 (two) times daily. Yes Default History Genericprovider irbesartan (AVAPRO) 300 MG tablet Take 1 tablet (300 mg total) by mouth daily. Yes Default History Genericprovider magnesium oxide (MAG-OX) 400 (240 Mg) MG tablet Take 1 tablet (400 mg total) by mouth daily. Yes Default History Genericprovider metoprolol succinate ER (TOPROL-XL) 50 MG 24 hr tablet Take by mouth daily. Yes Default History Genericprovider PAST MEDICAL HISTORY: Past Medical History: Diagnosis Date Essential (primary) hypertension 2013 Nonrheumatic mitral (valve) insufficiency 1997 PAST SURGICAL HISTORY: Past Surgical History: Procedure Laterality Date DELIVERY ONLY 2003 VAG HYST,RMV TUBE/OVARY 2012 FAMILY HISTORY: No family history on file. SOCIAL HISTORY: Social History Tobacco Use Smoking status: Former Types: Cigarettes Start date: 2003 Quit date: 1994 Years since quittin.5 Smokeless tobacco: Never Vaping Use Vaping status: Never Used Substance Use Topics Alcohol use: Never Drug use: Never Review of Systems Review of Systems Constitutional: Positive for fatigue. Negative for chills and fever. HENT: Negative for ear pain and sore throat. Eyes: Negative for visual disturbance. Respiratory: Negative for cough, shortness of breath and wheezing. Cardiovascular: Negative for chest pain, palpitations and leg swelling. Gastrointestinal: Positive for nausea. Negative for abdominal pain and vomiting. Endocrine: Negative. Genitourinary: Negative for dysuria, flank pain and frequency. Musculoskeletal: Positive for myalgias. Negative for back pain and neck pain. Skin: Negative for rash. Allergic/Immunologic: Negative. Neurological: Negative for dizziness and headaches. Psychiatric/Behavioral: Negative. Physical Exam Filed Vitals: 03/27/24 1900 03/27/24 1934 03/27/24 1935 03/27/24 193 BP: 105/67 131/70 131/71 Pulse: 69 60 Resp: 18 15 Temp: 98 ??F (36.7 ??C) TempSrc: Oral SpO2: 100% 100% Weight: Height: Physical Exam Vitals and nursing note reviewed. Constitutional: General: She is not in acute distress. Appearance: Normal appearance. HENT: Head: Normocephalic. Nose: Nose normal. Mouth/Throat: Mouth: Mucous membranes are moist. Eyes: Extraocular Movements: Extraocular movements intact. Conjunctiva/sclera: Conjunctivae normal. Cardiovascular: Rate and Rhythm: Normal rate and regular rhythm. Heart sounds: Normal heart sounds. Pulmonary: Effort: Pulmonary effort is normal. Breath sounds: Normal breath sounds. Abdominal: General: Bowel sounds are normal. Palpations: Abdomen is soft. Tenderness: There is no abdominal tenderness. Musculoskeletal: General: No swelling or tenderness. Normal range of motion. Cervical back: Normal range of motion and neck supple. Neurological: General: No focal deficit present. Mental Status: She is alert and oriented to person, place, and time. Mental status is at baseline. Psychiatric: Mood and Affect: Mood normal. Diagnostic Studies / Procedures ELECTROCARDIOGRAMS: Results for orders placed or performed during the hospital encounter of 03/27/24 [address] 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1980 Requested By: TIMA HANNA Order Number: [id number] [place] MD: Eben Macario Measurements Intervals [place] Rate: 59 P: 70 AR: 150 QRS: 46 QRSD: 81 T: 40 QT: 433 QTc: 429 Interpretive Statements SINUS BRADYCARDIA WITH SINUS ARRHYTHMIA No previous ECG available for comparison LABORATORY STUDIES: Results for orders placed or performed during the hospital encounter of 03/27/24 CBC W/DIFF AUTOMATED Result Value Ref Range WBC 9.26 4.4 - 11.0 x10'3/uL RBC 4.02 (L) 4.50 - 5.10 x10'6/uL HGB 13.1 12.3 - 15.3 G/DL HCT 38.7 35.9 - 44.6 % MCV 96.3 (H) 80.0 - 96.0 FL MCH 32.6 (H) 25.3 - 30.9 PG MCHC 33.9 31.0 - 34.1 G/DL RDW 12.1 (L) 12.4 - 15.1 % PLT 241 151 - 353 x10'3/uL MPV 9.6 9.6 - 12.0 FL RBC MORPHOLOGY NORMAL PLT MORPH. NORMAL WBC MORPHOLOGY NORMAL LYMPHOCYTES 16.7 15.8 - 45.0 % NEUTROPHILS 73.4 (H) 42.1 - 71.9 % MONOCYTES 7.7 5.7 - 12.5 % EOSINOPHILS 1.3 0.0 - 5.6 % BASOPHILS 0.5 0.0 - 1.3 % ABS. NEUTROPHILS 6.79 (H) 1.40 - 6.00 x10'3/uL IMMATURE GRANS 0.4 0.0 - 0.5 % ABS. LYMPHOCYTES 1.55 0.80 - 4.70 x10'3/uL COMPREHENSIVE METABOLIC PANEL Result Value Ref Range GLUCOSE 77 70 - 99 MG/DL BUN 16 7 - 18 MG/DL CREATININE S/P/B 1.06 (H) 0.55 - 1.02 MG/DL SODIUM S/P/B 136 136 - 145 MMOL/L POTASSIUM S/P/B 4.5 3.5 - 5.1 MMOL/L CHLORIDE S/P/B 104 100 - 108 MMOL/L CO2 26.7 21 - 32 MMOL/L CALCIUM S/P/B 8.1 (L) 8.5 - 10.1 MG/DL BILIRUBIN TOTAL S/P/B 0.6 0.2 - 1.2 MG/DL TOTAL PROTEIN S/P/B 6.2 (L) 6.4 - 8.2 G/DL ALBUMIN S/P/B 3.6 3.4 - 5.0 G/DL AST 26 15 - 37 U/L ALT 24 14 - 55 U/L ALKALINE PHOSPHATASE S/P/B 48 (L) 50 - 136 U/L ANION GAP 5.3 5 - 15 MMOL/L BUN CREATININE RATIO 15.1 6 - 26 A/G RATIO 1.4 1.0 - 2.0 RATIO GFR ESTIMATE 66 (L) >90 ML/MIN/1.73 M2 PRO-BRAIN NATRIURETIC PEPTIDE Result Value Ref Range PRO-B TYPE NATRIURETIC PEPTIDE 87 <125 PG/ML MAGNESIUM Result Value Ref Range MAGNESIUM 1.8 1.8 - 2.4 MG/DL TROPONIN, QUANT Result Value Ref Range TROPONIN I HIGH SENSITIVITY 5 <51 ng/L TEST URINE Result Value Ref Range URINE HCG TEST NEGATIVE NEGATIVE URINALYSIS, AUTO, COMPLETE Result Value Ref Range COLOR (U) YELLOW TRANSPARENCY CLEAR SPECIFIC GRAVITY (U) <1.005 1.000 - 1.030 U PH 6.5 5.0 - 9.0 LEUKOCYTES (U) NEGATIVE NEGATIVE NITRITES NEGATIVE NEGATIVE PROTEIN RANDOM (U) NEGATIVE NEGATIVE GLUCOSE (U) NEGATIVE NEGATIVE KETONES (U) NEGATIVE NEGATIVE BILIRUBIN (U) NEGATIVE NEGATIVE BLOOD (U) NEGATIVE NEGATIVE WBC/HPF 0-5 0 - 5 /HPF RBC/HPF 0-5 0 - 5 /HPF EPI/HPF RARE /HPF BACTERIA (U) FEW /HPF URINE FOX FEW DRUG SCREEN RAPID Result Value Ref Range AMPHETAMINE (U) NONE DETECTED NONE DETECTED BARBITURATES SCREEN (U) NONE DETECTED NONE DETECTED BENZODIAZEPINES SCREEN (U) NONE DETECTED NONE DETECTED BUPRENORPHINE SCREEN (U) NONE DETECTED NONE DETECTED COCAINE METABOLITES (U) NONE DETECTED NONE DETECTED METHAMPHETAMINE (U) NONE DETECTED NONE DETECTED METHADONE (U) NONE DETECTED NONE DETECTED OPIATE SCREEN (U) DETECTED (A) NONE DETECTED OXYCODONE SCREEN (U) NONE DETECTED NONE DETECTED PHENCYCLIDINE PCP (U) NONE DETECTED NONE DETECTED CANNABINOIDS SCREEN (U) NONE DETECTED NONE DETECTED TRICYCLIC ANTIDEPRESSANT SCREEN (U) NONE DETECTED NONE DETECTED IMAGING STUDIES XR CHEST PORTABLE Final Result by User, [id number] (03/27 2809) CLINICAL INDICATION: 44-year-old female. Reason for examination: Chest pain. TECHNIQUE: Portable upright AP view of the chest COMPARISON: There is no previous imaging of this patient. FINDINGS: Normal heart size and pulmonary vascular distribution. The lungs are clear of infiltrates. No pleural or consolidation. No pneumothorax. IMPRESSION: 1. No radiographic evidence of acute cardiopulmonary process. 2. No active disease in the chest. Referred By: Interpreted By: Lorena Diaz DO, 03/27/2024 6:24 PM ED Course / Medical Decision Making Medical Decision Making Symptoms likely secondary to heat exhaustion. She felt much improved after IV fluids given here in the ED. Encouraged to increase oral fluids intake and avoid extreme heat conditions. Follow-up with primary care doctor as needed. Problems Addressed: Heat exhaustion: acute illness or injury Amount and/or Complexity of Data Reviewed Labs: ordered. Radiology: ordered. ECG/medicine tests: ordered. Clinical Impression Heat exhaustion (Primary) Disposition: Discharge Tima Hanna MD 03/28/24 0551 * Ani Le RN - 03/27/2024 4:11 PM CDT Pt here via [facility] for c/o weakness, BLE cramping, abdominal cramping, dizziness, headache, sob, nausea without vomiting after working outside for 4 hours. Pt admits she was able to tolerate PO intake but did not improve symptoms. Pt currently AOX4 upon arrival. documented in this encounter Plan of Treatment Not on file documented as of this encounter Procedures Procedure Name Priority Date/Time Associated Diagnosis Comments XR CHEST PORTABLE STAT 03/27/2024 6:0 2 PM CDT ECG 12-LEAD Routine 03/27/2024 5:54 PM CDT PRO-BRAIN NATRIURETIC PEPTIDE STAT 03/27/2024 4:43 PM CDT DRUG SCREEN RAPID STAT 03/27/2024 4:4 3 PM CDT TEST URINE STAT 03/27/2024 4:43 PM CDT URINALYSIS, AUTO, COMPLETE STAT 03/27/2024 4:43 PM CDT COMPREHENSIVE METABOLIC PANEL STAT 03/27/2024 4:43 PM CDT CBC W/DIFF AUTOMATED STAT 03/27/2024 4:43 PM CDT TROPONIN, QUANT STAT 03/27/2024 4:43 PM CDT MAGNESIUM STAT 03/27/2024 4:43 PM CDT documented in this encounter Results * XR CHEST PORTABLE (03/27/2024 6:02 PM CDT) Anatomical Region Laterality Modality Chest Radiographic Janell ging 03/27/2024 6:24 PM CDT Impressions 03/27/2024 6:25 PM CDT IMPRESSION: 1. ??No radiographic evidence of acute cardiopulmonary process. 2. ??No active disease in the chest. Referred By: ?? Interpreted By: Lorena Diaz DO, 03/27/2024 6:24 PM Narrative 03/27/2024 6:25 PM CDT CLINICAL INDICATION: 44-year-old female. Reason for examination: Chest pain. TECHNIQUE: Portable upright AP view of the chest COMPARISON: There is no previous imaging of this patient. FINDINGS: Normal heart size and pulmonary vascular distribution. The lungs are clear of infiltrates. ??No pleural or consolidation. ??No pneumothorax. Procedure Note Lorena Diaz MD - 03/27/2024 CLINICAL INDICATION: 44-year-old female. Reason for examination: Chest pain. TECHNIQUE: Portable upright AP view of the chest COMPARISON: There is no previous imaging of this patient. FINDINGS: Normal heart size and pulmonary vascular distribution. The lungs are clear of infiltrates. No pleural or consolidation. Nopneumothorax. IMPRESSION: 1. No radiographic evidence of acute cardiopulmonary process. 2. No active disease in the chest. Referred By: Interpreted By: Lorena Diaz DO, 03/27/2024 6:24 PM us Tima Hanna MD GENERAL IMAGING Final Res ult * ECG 12 lead (03/27/2024 5:54 PM CDT) 03/27/2024 5:54 PM CDT Narrative [facility] RAD - 03/27/2024 7:18 PM CDT ?[facility] ? Test Date: ?2024-03-27 Pat Name: ? NORA ANNABEL ? Department: ?? 85 ? Room: ? EXAM 2 Gender: ? Female ? Plant Clerk: ?? : ?1980 ? Requested By: TIMA WINTERS Order Number: [id number] ? Reading MD: ?? Eben Macario ? Measurements Intervals ?[place] ? Rate: ? 59 ? P: ?70 AR: ? 150 ?QRS: ?46 QRSD: ? 81 ? T: ?40 QT: ? 433 ? QTc: ?429 ? 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 RAD * (ABNORMAL) DRUG SCREEN RAPID (03/27/2024 4:43 PM CDT) Pathologist [facility] AMPHETAMINE (U) NONE DETECTED NONE DETECTED 03/27/2024 7:17 PM CDT [facility] BARBITURATES SCREEN (U) NONE DETECTED NONE DETECTED 03/27/2024 7:17 PM CDT [facility] BENZODIAZEPINES SCREEN (U) NONE DETECTED NONE DETECTED 03/27/2024 7:17 PM CDT [facility] BUPRENORPHINE SCREEN (U) NONE DETECTED NONE DETECTED 03/27/2024 7:17 PM CDT [facility] COCAINE METABOLITES (U) NONE DETECTED NONE DETECTED 03/27/2024 7:17 PM CDT [facility] METHAMPHETAMINE (U) NONE DETECTED NONE DETECTED 03/27/2024 7:17 PM CDT [facility] METHADONE (U) NONE DETECTED NONE DETECTED 03/27/2024 7:17 PM CDT [facility] OPIATE SCREEN (U) DETECTED(A) NONE DETECTED 03/27/2024 7:17 PM CDT [facility] OXYCODONE SCREEN (U) NONE DETECTED NONE DETECTED 03/27/2024 7:17 PM CDT [facility] PHENCYCLIDINE PCP (U) NONE DETECTED NONE DETECTED 03/27/2024 7:17 PM CDT [facility] CANNABINOIDS SCREEN (U) NONE DETECTED NONE DETECTED 03/27/2024 7:17 PM CDT [facility] TRICYCLIC ANTIDEPRESSANT SCREEN (U) NONE DETECTED NONE DETECTED 03/27/2024 7:17 PM CDT [facility] Comment: NOTE: RESULTS OF THIS DRUG SCREEN SHOULD BE USED FOR MEDICAL PURPOSES ONLY AND NOT FOR LEGAL OR EMPLOYEMENT PURPOSES. MEDICATIONS CONTAINING EPHEDRINE MAY CAUSE FALSE POSITIVE AMPHETAMINE. AMPHETAMINE- ?500 NG/ML BARBITURATE- ?200 NG/ML BENZODIAZEPINE- ?? 150 NG/ML BUPRENORPHINE- ? 10 NG/ML COCAINE- ?150 NG/ML METHAMPHETAMINES- 500 NG/ML METHADONE- ?200 NG/ML OPIATE- ? 100 NG/ML OXYCODONE- ?100 NG/ML PCP- ? 25 NG/ML THC- ? 50 NG/ML TCA- ?300 NG/ML URINE SPECIMEN / Unknown 03/27/2024 4:43 PM CDT us Tima Hanna MD URINE ORDERABLES Final Re sult [facility] [address] [place] [address], [place] [phone] * URINALYSIS, AUTO, COMPLETE (03/27/2024 4:43 PM CDT) COLOR (U) YELLOW 03/27/2024 7:10 PM CDT [facility] TRANSPARENCY CLEAR 03/27/2024 7:10 PM CDT [facility] SPECIFIC GRAVITY (U) <1.005 1.000 - 1.030 03/27/2024 7:10 PM CDT [facility] U PH 6.5 5.0 - 9.0 03/27/2024 7:10 PM CDT [facility] LEUKOCYTES (U) NEGATIVE NEGATIVE 03/27/2024 7:10 PM CDT [facility] NITRITES NEGATIVE NEGATIVE 03/27/2024 7:10 PM CDT [facility] PROTEIN RANDOM (U) NEGATIVE NEGATIVE 03/27/2024 7:10 PM CDT [facility] GLUCOSE (U) NEGATIVE NEGATIVE 03/27/2024 7:10 PM CDT [facility] KETONES MG/DL (U) NEGATIVE NEGATIVE 03/27/2024 7:10 PM CDT [facility] BILIRUBIN (U) NEGATIVE NEGATIVE 03/27/2024 7:10 PM CDT [facility] BLOOD (U) NEGATIVE NEGATIVE 03/27/2024 7:10 PM CDT [facility] WBC/HPF 0-5 0 - 5 /HPF 03/27/2024 7:10 PM CDT [facility] RBC/HPF 0-5 0 - 5 /HPF 03/27/2024 7:10 PM CDT [facility] EPI/HPF RARE /HPF 03/27/2024 7:10 PM CDT [facility] BACTERIA (U) FEW /HPF 03/27/2024 7:10 PM CDT [facility] URINE FOX FEW 03/27/2024 7:10 PM CDT [facility] Comment:MUCOUS URINE SPECIMEN OBTAINED BY CLEAN CATCH PROCEDURE / Unknown 03/27/2024 4:43 PM CDT Tima Hanna MD URINE ORDERABLES Final Re sult Performing Organization Address [facility]/ZIP Co de Phone Number [facility] [address] [place] [address], [place] [phone] * TEST URINE (03/27/2024 4:43 PM CDT) URINE HCG TEST NEGATIVE NEGATIVE 03/27/2024 7:07 PM CDT [facility] Comment: VERY DILUTE URINE SPECIMENS MAY NOT CONTAIN MASTER BARBER LEVELS OF HCG. IF IS STILL SUSPECTED, A SERUM HCG TEST IS RECOMMENDED. URINE SPECIMEN FROM URETHRA / Unknown 03/27/2024 4:43 PM CDT Tima Hanna MD URINE ORDERABLES Final Re sult Performing Organization Address [facility]/ZIP Co de Phone Number [facility] [address] [place] [address], [place] [phone] * TROPONIN, QUANT (03/27/2024 4:43 PM CDT) TROPONIN I HIGH SENSITIVITY 5 <51 ng/L 03/27/2024 6:04 PM CDT [facility] Comment: HIGH DOSES OF BIOTIN, TROPONIN-SPECIFIC AUTOANTIBODIES, AND ANTIBODY THERAPY CONTAINING HAMA MAY INTERFERE WITH THIS TEST RESULT. CORRELATION TO CLINICAL HISTORY AND PRESENTATION RECOMMENDED. 03/27/2024 4:43 PM CDT us Tima Hanna MD LABORATORY Final Res ult Performing Organization Address [facility]/ZIP Co de Phone Number [facility] [address] [place] [address], [place] [phone] * MAGNESIUM (03/27/2024 4:43 PM CDT) MAGNESIUM 1.8 1.8 - 2.4 MG/DL 03/27/2024 6:09 PM CDT [facility] 03/27/2024 4:43 PM CDT us Tima Hanna MD LABORATORY Final Res ult Performing Organization Address [facility] Co de Phone Number [facility] [address] [place] [address], [place] [phone] * PRO-BRAIN NATRIURETIC PEPTIDE (03/27/2024 4:43 PM CDT) PRO-B TYPE NATRIURETIC PEPTIDE 87 <125 PG/ML 03/27/2024 6:09 PM CDT [facility] Comment: CUT POINTS ESTABLISHED BY [employer] ON NT PROBNP (ICON) STUDY (2006). AGE INDEPENDENT: <300 PG/ML HAS A 99% NEGATIVE PREDICTIVE VALUE FOR EXCLUDING ACUTE CHF <50 YEARS: >450 PG/ML IS CONSISTENT WITH ACUTE CHF 50-75 YEARS: >900 PG/ML IS CONSISTENT WITH ACUTE CHF >75 YEARS: >1800 PG/ML IS CONSISTENT WITH ACUTE CHF IN PATIENTS WITH RENAL INSUFFICIENCY (GFR <60), >1200 PG/ML YIELDS A DIAGNOSTIC SENSITIVITY AND SPECIFICITY OF 89% AND 72% FOR ACUTE CHF. 03/27/2024 4:43 PM CDT us Tima Hanna MD LABORATORY Final Res ult [facility] [address] [place] [address], [place] [phone] * (ABNORMAL) COMPREHENSIVE METABOLIC PANEL (03/27/2024 4:43 PM CDT) GLUCOSE 77 70 - 99 MG/DL 03/27/2024 6:09 PM CDT [facility] BUN 16 7 - 18 MG/DL 03/27/2024 6:09 PM CDT [facility] CREATININE S/P/B 1.06(H) 0.55 - 1.02 MG/DL 03/27/2024 6:09 PM CDT [facility] SODIUM S/P/B 136 136 - 145 MMOL/L 03/27/2024 6:09 PM T [facility] POTASSIUM S/P/B 4.5 3.5 - 5.1 MMOL/L 03/27/2024 6:09 PM T [facility] CHLORIDE S/P/B 104 100 - 108 MMOL/L 03/27/2024 6:09 PM T [facility] CO2 26.7 21 - 32 MMOL/L 03/27/2024 6:09 PM T [facility] CALCIUM S/P/B 8.1(L) 8.5 - 10.1 MG/DL 03/27/2024 6:09 PM CDT [facility] BILIRUBIN TOTAL S/P/B 0.6 0.2 - 1.2 MG/DL 03/27/2024 6:09 PM T [facility] TOTAL PROTEIN S/P/B 6.2(L) 6.4 - 8.2 G/DL 03/27/2024 6:09 PM T [facility] ALBUMIN S/P/B 3.6 3.4 - 5.0 G/DL 03/27/2024 6:09 PM CDT [facility] AST 26 15 - 37 U/L 03/27/2024 6:09 PM T [facility] ALT 24 14 - 55 U/L 03/27/2024 6:09 PM T [facility] ALKALINE PHOSPHATASE S/P/B 48(L) 50 - 136 U/L 03/27/2024 6:09 PM CDT [facility] ANION GAP 5.3 5 - 15 MMOL/L 03/27/2024 6:09 PM T [facility] BUN CREATININE RATIO 15.1 6 - 26 03/27/2024 6:09 PM T [facility] A/G RATIO 1.4 1.0 - 2.0 RATIO 03/27/2024 6:09 PM T [facility] GFR ESTIMATE 66(L) >90 ML/MIN/1.7 3 M2 03/27/2024 6:09 PM T [facility] Comment: NOTE: eGFR is not calculated for patients <18 years of age. This is an estimated GFR calculation using the new CKD EPI creatinine equation without race and so does not require a correction factor for race. This estimated GFR should not be used for calculating drug doses. 03/27/2024 4:43 PM CDT us Tima Hanna MD LABORATORY Final Res ult [facility] [address] [place] [address], [place] [phone] * (ABNORMAL) CBC W/DIFF AUTOMATED (03/27/2024 4:43 PM CDT) WBC 9.26 4.4 - 11.0 x10'3/uL 03/27/2024 5:50 PM CDT [facility] RBC 4.02(L) 4.50 - 5.10 x10'6/uL 03/27/2024 5:50 PM CDT [facility] HGB 13.1 12.3 - 15.3 G/DL 03/27/2024 5:50 PM CDT [facility] HCT 38.7 35.9 - 44.6 % 03/27/2024 5:50 PM CDT [facility] MCV 96.3(H) 80.0 - 96.0 FL 03/27/2024 5:50 PM CDT [facility] MCH 32.6(H) 25.3 - 30.9 PG 03/27/2024 5:50 PM CDT [facility] MCHC 33.9 31.0 - 34.1 G/DL 03/27/2024 5:50 PM CDT [facility] RDW 12.1(L) 12.4 - 15.1 % 03/27/2024 5:50 PM CDT [facility] PLT 241 151 - 353 x10'3/uL 03/27/2024 5:50 PM CDT [facility] MPV 9.6 9.6 - 12.0 FL 03/27/2024 5:50 PM CDT [facility] RBC MORPHOLOGY NORMAL 03/27/2024 5:50 PM CDT [facility] PLT MORPH. NORMAL 03/27/2024 5:50 PM CDT [facility] WBC MORPHOLOGY NORMAL 03/27/2024 5:50 PM CDT [facility] LYMPHOCYTES % 16.7 15.8 - 45.0 % 03/27/2024 5:50 PM CDT [facility] NEUTROPHILS % 73.4(H) 42.1 - 71.9 % 03/27/2024 5:50 PM CDT [facility] MONOCYTES % 7.7 5.7 - 12.5 % 03/27/2024 5:50 PM CDT [facility] EOSINOPHILS 1.3 0.0 - 5.6 % 03/27/2024 5:50 PM CDT [facility] BASOPHILS 0.5 0.0 - 1.3 % 03/27/2024 5:50 PM CDT [facility] ABS. NEUTROPHILS 6.79(H) 1.40 - 6.00 x10'3/uL 03/27/2024 5:50 PM CDT [facility] IMMATURE GRANS % 0.4 0.0 - 0.5 % 03/27/2024 5:50 PM CDT [facility] ABS. LYMPHOCYTES 1.55 0.80 - 4.70 x10'3/uL 03/27/2024 5:50 PM CDT [facility] 03/27/2024 4:43 PM CDT us Tima Hanna MD LABORATORY Final Res ult [facility] [id number] [place] [address], documented in this encounter Visit Diagnoses Diagnosis Heat exhaustion- Primary Heat exhaustion, unspecified documented in this encounter Administered Medications Inactive Administered Medications - up to 3 most recent administrations Medication Order MAR Action Action Date Dose Rate Site ondansetron (ZOFRAN) injection 4 mg 4 mg, Intravenous, Once, 1 dose, On Tue03/27/24 at 1800, IV push over 2-5 minutes. Given 03/27/2024 7:35 PM CDT 4 mg sodium chloride 0.9% bolus infusion 1,000 mL 1,000 mL, Intravenous, Administer over 60 Minutes, Once, 1 dose, On Tue03/27/24 at 1800 New Bag 03/27/2024 7:34 PM CDT 1,000 mLs 1000 mL/hr documented in this encounter Active and Recently Administered Medications Times are shown in CDT. Scheduled Medication Order 03/25/2024 03/26/2024 03/27/2024 ondansetron (ZOFRAN) injection 4 mg (COMPLETED) 4 mg, Intravenous, Once, 1 dose, On Tue03/27/24 at 1800, IV push over 2-5 minutes. 1934 (Given - Provid er: Yue Tomas RN) sodium chloride 0.9% bolus infusion 1,000 mL (COMPLETED) 1,000 mL, Intravenous, Administer over 60 Minutes, Once, 1 dose, On Tue03/27/24 at 1800 1933 (New Bag - Prov ider: Yue Tomas RN)1943 (Infusion Stop Time - Provider: Yue Tomas RN) documented in this encounter Care Teams Leadership Program Intern Relationship Specialty Start Date End Date Giulia Kirkpatrick MD [address] [place] [address] [place] [address] PCP - General FAMILY PRACTICE 03/27/24 documented as of this encounter
--- OUTSIDE RECORDS SUMMARY | 2024-10-07 14:23 | XMS_ITS | Patient Health Summary ---
Author Organization [facility] Address [address] [place] [address] Care Team Providers Care Self Pay Representative Name Role Phone Easton Bryant DO Primary Care Provider [phone] Note from [facility],non-owned Affiliates and Associated Physician Practices is amultiple site organization consisting of ambulatory clinics and hospital sitesin [place], [place], [place] and [place]. This disclosure is being madepursuant to the Care Everywhere program and may not contain all information available regarding this patient. Last updated 18.[facility] Allergies No known active allergies Medications * Be aware that medications may not be up to date on this document. Alwaysverify current medications with the patient. * metoprolol succinate XL 24hr (TOPROL XL) 25 MG tablet Take 25 mg by mouth once daily * fluticasone propionate (FLONASE) 50 MCG/ACT nasal spray(Started 10/19/2017) [place] 2 sprays into each nostril once daily Social History Tobacco Use Types Packs/Day Years Used Date Smoking Tobacco: Former Smokeless Tobacco: Never Sex and Gender Information Value Date Recorded Sex Assigned at Not on file Gender Identity Not on file Sexual Orientation Not on file Last Filed Vital Signs Vital Sign Reading Time Taken Comments Blood Pressure 126/88 10/19/2017 3:30 PM HISTOTECHNICIAN Pulse 70 10/19/2017 3:30 PM HISTOTECHNICIAN Temperature 36.9 ??C (98.4 ??F) 10/19/2017 3:30 PM CS T Respiratory Rate 16 10/19/2017 3:30 PM HISTOTECHNICIAN Oxygen Saturation 99% 10/19/2017 3:30 PM HISTOTECHNICIAN Inhaled Oxygen Concentration - - Weight 74.8 kg (165 lb) 10/19/2017 3:30 PM HISTOTECHNICIAN Height 160 cm (5' 3 ) 10/19/2017 3:30 PM HISTOTECHNICIAN Body Mass Index 29.23 10/19/2017 3:30 PM HISTOTECHNICIAN Care Teams Self Pay Representative Relationship Specialty Start Date End Date Easton Bryant DO PCP - General Internal Medicine 10/19/17
--- OUTSIDE RECORDS SUMMARY | 2024-10-07 14:23 | XMS_ITS | Clinical Summary ---
Author Organization [facility] [facility] Address [address] [place] [address] Care Team Providers Care Meter Reader Inspector Name Role Phone Easton Bryant DO Primary Care Provider [phone] Source Comments [facility] [employer] [facility],non-owned Affiliates and Associated Physician Practices is amultiple site organization consisting of ambulatory clinics and hospital sitesin [place], [place], [place] and [place]. This disclosure is being madepursuant to the Care Everywhere program and may not contain all information available regarding this patient. Last updated 18.[facility] [facility] Allergies No known active allergies Medications * Be aware that medications may not be up to date on this document. Alwaysverify current medications with the patient. Medication Sig Dispensed Refills Start Date End Date Status metoprolol succinate XL 24hr (TOPROL XL) 25 MG tablet Take 25 mg by mouth once daily Active fluticasone propionate (FLONASE) 50 MCG/ACT nasal sprayIndications:Dysf unction of right eustachian tube [place] 2 sprays into each nostril once daily 1 bottles 10/19/2017 Active Family History Medical History Relation Name Comments CAD (Coronary Artery Disease) Father CHF, bypass Hypertension Father Other - Pulmonary/Lung Mother Relation Name Status Comments Father Mother Social History Tobacco Use Types Packs/Day Years Used Date Smoking Tobacco: Former Smokeless Tobacco: Never Sex and Gender Information Value Date Recorded Sex Assigned at Not on file Gender Identity Not on file Sexual Orientation Not on file Last Filed Vital Signs Vital Sign Reading Time Taken Comments Blood Pressure 126/88 10/19/2017 3:30 PM CAST IRON DIPPER Pulse 70 10/19/2017 3:30 PM CAST IRON DIPPER Temperature 36.9 ??C (98.4 ??F) 10/19/2017 3:30 PM CS T Respiratory Rate 16 10/19/2017 3:30 PM CAST IRON DIPPER Oxygen Saturation 99% 10/19/2017 3:30 PM CAST IRON DIPPER Inhaled Oxygen Concentration - - Weight 74.8 kg (165 lb) 10/19/2017 3:30 PM CAST IRON DIPPER Height 160 cm (5' 3 ) 10/19/2017 3:30 PM CAST IRON DIPPER Body Mass Index 29.23 10/19/2017 3:30 PM CAST IRON DIPPER Plan of Treatment Health Maintenance Due Date Last Done Comments COLOGUARD (AGES 45-75) - COL ON CA SCREENING 1978 COLON MONITORING 1978 COLONOSCOPY - COLON CA SCREENING 1978 CT COLONOGRAPHY - COLON CA SCREENING 1978 Colorectal Cancer Screening 1978 FIT - COLON CA SCREENING 1978 FLEX SIG - COLON CA SCREENING 1978 LIPID TESTING 1978 MAMMOGRAM 1978 PAP SMEAR 1978 HIV SCREENING 1993 HEPATITIS C SCREENING 03/19/1996 DTAP/TDAP/TD VACCINES (1 - Tdap) 1997 HEPATITIS B VACCINE (1 of 3 - 19+ 3-dose series) 1997 DEPRESSION SCREENING 10/03/2023 COVID-19 VACCINE (1 - 2023-2 5 season) 2024 INFLUENZA VACCINE (#1) 2024 ZOSTER VACCINE (1 of 2) 2028 HIB VACCINE Aged Out No longer eligi ble based on patient's age to complete this topic HPV VACCINE Aged Out No longer eligi ble based on patient's age to complete this topic MENINGOCOCCAL VACCINE Aged Out No santos andrés eligible based on patient's age to complete this topic PNEUMOCOCCAL VACCINE Aged Out No long er eligible based on patient's age to complete this topic Care Teams Meter Reader Inspector Relationship Specialty Start Date End Date Easton Bryant DO PCP - General Internal Medicine 10/19/17
--- OUTSIDE RECORDS SUMMARY | 2024-10-07 14:23 | XMS_ITS | Encounter Summary ---
Author Organization [facility] Address [address] [place] [address] Care Team Providers Care Director Public Policy Name Role Phone Easton Bryant DO Primary Care Provider [phone] Reason for Visit * Reason Onset Date Comments Follow-up 10/21/2017 Encounter Details Date Type Department Care Team (Late st Contact Info) Description 10/21/2017 Telephone [facility] [address] [address] [place] Follow-up Social History Tobacco Use Types Packs/Day Years Used Date Smoking Tobacco: Former Smokeless Tobacco: Never Sex and Gender Information Value Date Recorded Sex Assigned at Not on file Gender Identity Not on file Sexual Orientation Not on file documented as of this encounter Plan of Treatment Not on file documented as of this encounter Visit Diagnoses Not on filedocumented in this encounter Care Teams Director Public Policy Relationship Specialty Start Date End Date Easton Bryant DO PCP - General Internal Medicine 10/19/17 documented as of this encounter
--- OUTSIDE RECORDS SUMMARY | 2024-10-07 14:23 | XMS_ITS | Encounter Summary ---
Author Organization [facility] Address [address] [place] [address]. [place], [place] [address] [place] [address] Care Team Providers Care Set Up Mechanic Automatic Line Name Role Phone Giulia Kirkpatrick MD Primary Care Provider [phone] Encounter Details Date Type Department Care Team (Latest Contact Info) Description 03/27/2024 Travel Social History Tobacco Use Types Packs/Day Years Used Date Smoking Tobacco: Former Cigarettes 1994 Smokeless Tobacco: Never Alcohol Use Standard Drinks/Week Comments Never 0 [...] on filedocumented in this encounter Care Teams Set Up Mechanic Automatic Line Relationship Specialty Start Date End Date Giulia Kirkpatrick MD [address] [place] [address] [place] [address] PCP - General FAMILY PRACTICE 03/27/24 documented as of this encounter
--- OUTSIDE RECORDS SUMMARY | 2024-10-07 14:23 | XMS_ITS | Referral Summary ---
Author Organization [facility] Address [address] [place] [address] Care Team Providers Care Button Decorating Machine Operator Name Role Phone Easton Bryant DO Primary Care Provider [phone] Source Comments [facility],non-owned Affiliates and Associated Physician Practices is amultiple site organization consisting of ambulatory clinics and hospital sitesin [place] and [place]. This disclosure is being madepursuant to the Care Everywhere program and may not contain all information available regarding this patient. Last updated 18.[facility] Allergies No known active allergies Medications * [...] nasal sprayIndications:Dysf unction of right eustachian tube [place] 2 sprays into each nostril once daily 1 bottles 10/19/2017 Active Social History Tobacco Use Types Packs/Day Years Used Date Smoking Tobacco: Former Smokeless Tobacco: Never Sex and Gender Information Value Date Recorded Sex Assigned at Not on file Gender Identity Not on file Sexual Orientation Not on file Last Filed Vital Signs Vital Sign Reading Time Taken Comments Blood Pressure 126/88 10/19/2017 3:30 PM HEALTH ADMINISTRATION TEACHER Pulse 70 10/19/2017 3:30 PM HEALTH ADMINISTRATION TEACHER Temperature 36.9 ??C (98.4 ??F) 10/19/2017 3:30 PM CS T Respiratory Rate 16 10/19/2017 3:30 PM HEALTH ADMINISTRATION TEACHER Oxygen Saturation 99% 10/19/2017 3:30 PM HEALTH ADMINISTRATION TEACHER Inhaled Oxygen Concentration - - Weight 74.8 kg (165 lb) 10/19/2017 3:30 PM HEALTH ADMINISTRATION TEACHER Height 160 cm (5' 3 ) 10/19/2017 3:30 PM HEALTH ADMINISTRATION TEACHER Body Mass Index 29.23 10/19/2017 3:30 PM HEALTH ADMINISTRATION TEACHER Plan of Treatment Not on file Care Teams Button Decorating Machine Operator Relationship Specialty Start Date End Date Easton Bryant DO PCP - General Internal Medicine 10/19/17
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
--- OUTSIDE RECORDS SUMMARY | 2024-10-07 14:24 | XMS_ITS | Encounter Summary ---
Author Organization [facility] Healthcare Address [address] [place] [address] Care Team Providers Care Director Oncology Name Role Phone Giulia Kirkpatrick MD Primary Care Provider + Reason for Referral * Cardiology (Routine) - Authorized Specialty Diagnoses / Procedures Referred By Contac t Referred To Contact Diagnoses Pre-op testing Procedures ECG 12 lead Rosemary Bauman NP [id number] [place] [id number] Phone: tel: fax: [address] [address] Referral ID Status Reason Start Date Expiration Date V isits Requested Visits Authorized [id number] Authorized 06/18/2024 07/18/2025 1 1 Encounter Details Date Type Department Care Team (Latest Contact Info) Description 06/19/2024 8:45 AM CDT Pre-Admission Testing [facility] Pre Anesthesia Testing [address] [place], [place] [id number] Pre-op testing (Primary Dx) Anesthesia Record Procedure Summary Procedure Name Responsible Anesthesiologist Anesthesia Start Time Anesthesia Stop Time ABLATION VENTRICULAR TACHYCARDIA (VT) INCLUDES 3D MAPPING (WHEN USED) [id number] Toya Adler MD PhD 06/28/24 0807 06/28/24 1107 Events Date Time Event Comment 06/28/2024 0711 0807 An Start 0807 An Start Data 0807 An Induction The patient was reevaluated immediately before moderate or deep sedation use and before anesthesia induction. 0824 Anesthesia Ready 0931 An Intubation 0939 Converted to GA A flutter ab lation, general ett placed 1100 An Extubation 1106 Handoff to RN I completed my handoff to the receiving nurse during which we: 1. Patient identified 2. Responsible provider identified 3. Pertinent medical history reviewed 4. Procedure type and surgical course discussed 5. Intraoperative anesthetic management and any significant issues discussed 6. Expectations and concerns for postop period discussed 7. Questions solicited from receiving nurse 8. Patient disposition at the time of handoff: No value filed. 1107 An Stop 1154 Release from [facility] * Agents No agents on file. * Blood No blood administrations on file. Lines, Drains, and Airways Type Details Placement Removal Peripheral IV Placement Date: 06/04 03/26; Placement Time: 0646; Catheter Size: 20 G; Orientation: Left, Posterior; Location: Hand; Site Prep: Chlorhexidine; Inserted by: Valentina Cain RN; Insertion Attempts: 1; Patient Tolerance: Tolerated well; Removal Date: 06/28/24; Removal Time: 193; Removal Reason: Per order 06/28/24645 by Valentina Cain RN 06/28/241934 by Johnny Hernandez Venous Sheath Placement Date: 06/04 03/26; Placement Time: 0844; Hand Hygiene: Yes; Site Prep: Chlorhexidine; Site Prep Agent Dried: Yes; Sterile Barrier Used: Yes; Inserted by: Dr. Dutton; Insertion Attempts: 1; Pt Tolerance: Tolerated well; Placement Verification: Blood return, X-ray; Removal Date: 06/28/24; Removal Time: 1046; Cath Tip Cultured: No 06/28/24 0844 by Sharita Burgos RN 06/28/24 1046 by Sharita Burgos RN Venous Sheath Placement Date: 06/04 03/26; Placement Time: 0845; Hand Hygiene: Yes; Site Prep: Chlorhexidine; Site Prep Agent Dried: Yes; Sterile Barrier Used: Yes; Inserted by: Dr. Dutton; Insertion Attempts: 1; Pt Tolerance: Tolerated well; Placement Verification: Blood return, X-ray; Removal Date: 06/28/24; Removal Time: 1046; Cath Tip Cultured: No 06/28/24 0845 by Sharita Burgos RN 06/28/24 1046 by Sharita Burgos RN Venous Sheath Placement Date: 06/04 03/26; Placement Time: 0847; Hand Hygiene: Yes; Site Prep: Chlorhexidine; Site Prep Agent Dried: Yes; Sterile Barrier Used: Yes; Inserted by: Dr. Dutton; Insertion Attempts: 1; Pt Tolerance: Tolerated well; Placement Verification: Blood return, X-ray; Removal Date: 06/28/24; Removal Time: 1046; Cath Tip Cultured: No 06/28/24 0847 by Sharita Burgos RN 06/28/24 1046 by Sharita Burgos RN ETT Placement Date: 06/04 03/26; Placement Time: 0946 (created via procedure documentation); Mask Ventilation: 1; Technique: Video laryngoscopy; Type: ETT - single; Single Lumen Tube Size: 7 mm; Laryngoscope: Delgado; Blade Size: 4; Location: Oral; Insertion Attempts: 1; Placement Verification: Capnometry; Removal Date: 06/28/24; Removal Time: 1100 06/28/24 0946 by Jonathan Shoemaker CRNA 06/28/24 1100 by Jonathan Shoemaker CRNA Venous Sheath Placement Date: 06/04 03/26; Placement Time: 0954; Hand Hygiene: Yes; Site Prep: Chlorhexidine; Site Prep Agent Dried: Yes; Sterile Barrier Used: Yes; Inserted by: Dr. Dutton; Insertion Attempts: 1; Pt Tolerance: Tolerated well; Placement Verification: Blood return, X-ray; Removal Date: 06/28/24; Removal Time: 1046; Cath Tip Cultured: No 06/28/24 0954 by Shartia Burgos RN 06/28/24 1046 by Sharita Burgos RN documented in this encounter Social History Tobacco Use Types Packs/Day Years Used Date Smoking Tobacco: Former Cigarettes Vaping Tobacco Cessation:Counseling Given: Not Answered Comments:Former smoker, currently vapes AUDIT-C Answer Date Recorded Q1: How often do you have a drink containing alc ohol? Monthly or less 06/19/2024 Q2: How many drinks containi ng alcohol do you have on a typical day when you are drinking? 1 or 2 06/19/2024 Q3: How often do you have si x or more drinks on one occasion? 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 Gender Identity Not on file Sexual Orientation Not on file documented as of this encounter Last Filed Vital Signs Vital Sign Reading Time Taken Comments Blood Pressure 124/75 06/19/2024 9:04 AM CDT Pulse 83 06/19/2024 9:04 AM CDT Temperature 36.6 ??C (97.9 ??F) 06/19/2024 9:04 AM CD T Respiratory Rate 18 06/19/2024 9:04 AM CDT Oxygen Saturation 99% 06/19/2024 9:04 AM CDT Inhaled Oxygen Concentration - - Weight - - Height - - Body Mass Index - - documented in this encounter Miscellaneous Notes * Pre-Procedure Instructions - [place] RN - 06/19/2024 8:45 [place] [address] We are pleased that you and your doctor have chosen [facility] for your surgery. We hope that the following information will help make your visit a pleasant one. Surgery Date: 06/28/24 Arrive at 6:00am Before your surgery: Notify your doctor of ANY change in your health such as a cold, sore throat, fever, an infection, or a change in the problem for which you are having your surgery, if you were in the hospital or Emergency Room. Notify your surgeon if you test positive for COVID. Follow any instructions given to you by your doctor or surgeon. If you take any type of blood thinner, including ASPIRIN: YOU ARE RESPONSIBLE FOR CALLING your physician to determine when it should be held for your surgery. You are to STOP TAKING: All vitamin/herbal supplements, including Vitamin D, Vitamin E, Fish Oil, CoQ10, multivitamins, anddiet pills 14 days prior to surgery, or as soon as possible. Excedrin, Motrin/Advil (Ibuprofen), Aleve (Naproxen), Celebrex (Celecoxib), Indocin (Indomethacin),Toradol (Ketorolac), and/or Mobic (meloxicam) 7 days prior to surgery. If you have pain, you may take Tylenol/Extra Strength Tylenol (unless it is not recommended by yourphysician). 24 hours before your surgery: No cigarettes, vaping, alcohol, or recreational drug use. It is best to stop smoking now to improveyour health. No smoking marijuana and no edible THC. Hydrate yourself (water) - if no restrictions. No shaving for 24 hours prior to your surgery. Night before your surgery: DO NOT eat or drink anything after midnight. Nothing to eat includes hard candy, mints, gum, chewable antacids, and cough drops. Follow surgeon's instructions for anti-bacterial (CHG) shower night before and morning of surgery. Shower Instructions: Clean your hair using normal shampoo and/or conditioner products. Using your own normal soap and one washcloth, wash your face. Move away from the shower stream. Using a second freshly washed washcloth and the CHG soap, thoroughly wash from neck down (avoid face, hair, and genital area). Use enough soap to thoroughly cover your body. You may need help if some areas cannot easily be reached, such as your back. Wash with the CHG soap for 2-3 minutes then Rinse thoroughly and dry with a clean towel (use a different freshly washed towel for each shower). Dress in clean, freshly washed pajamas or clothing. Do not use perfume/cologne, make-up, nail vietnamese, lotions, oil/Vaseline, or powders on your skin. Powder-free deodorant is permitted. Do not shave below the neck on the night before or day of surgery The night before surgery sleep on clean linen, no pets. Day of surgery: Repeat your shower You may brush your teeth and rinse your mouth out. Do not swallow any extra water. No smoking, vaping, alcohol, or recreational drug use. No marijuana and no edible THC. Wear comfortable clothes that will not be tight over the area of your surgery. Leave all valuables and jewelry (including all body piercing jewelry) at home. Please bring your photo ID, insurance cards, and medication list (including all [id number]-lskaqzu medications) with you. If you have an implantable device with a remote, bring the remote with you. ONLY take these pills with a small sip of water: NONE Pre-Surgery Instructions: Medication Instructions What to bring if you are spending the night with us: Bring toiletry items such as: robe, slippers, toothbrush, toothpaste, brush, or comb. Bring contact lens, hearing aids, glass case, and denture container. The hospital will provide you with a gown. If you use a CPAP machine, please bring it with you to wear after your surgery. Questions or concerns: If you have any questions, or concerns regarding your procedure, or to cancel your surgery/procedure - contact your surgeon as soon as possible. If you have questions regarding your Pre-Admission Screen/Testing, or these instructions, please call [facility] at . documented in this encounter Plan of Treatment Not on file documented as of this encounter Procedures Procedure Name Priority Date/Time Associated Diagnosis Comments ECG 12-LEAD Routine 06/19/2024 9:38 AM CDT Pre-op testing EGFR Routine 06/19/2024 9:20 AM CDT Pre-op testing DIFFERENTIAL AUTO Routine 06/19/2024 9:2 0 AM CDT Pre-op testing CBC WITH AUTO DIFFERENTIAL Routine 06/19/2024 9:20 AM CDT Pre-op testing BASIC METABOLIC PANEL Routine 06/19/2024 9:20 AM CDT Pre-op testing documented in this encounter Results * ECG 12 lead (06/19/2024 9:38 AM CDT) 06/19/2024 9:38 AM CDT Narrative [facility] - 06/19/2024 11:49 AM CDT Vent Rate: 74 bpm RR Interval: 807 msec [place] Interval: 156 msec QRS Duration: 85 msec QT Interval: 379 msec QTC Interval: 406 msec P-R-T Jackson: 69 - 42 - 33 degrees IMPRESSION: SINUS RHYTHM NORMAL ECG Electronically Signed By: Juan Munoz MD Rosemary Bauman TOOL POLISHER ECG ORDERABLES Final Result [facility] * eGFR (06/19/2024 9:20 AM CDT) eGFR 74 >=60 mL/min/1. 73 m2 Comment: Interpretive Data Reference Interval Normal ?>/= 90 mL/min/1.73m2 Mildly decreased* ? 60 - 89 mL/min/1.73m2 Mildly to moderately decreased ?45 - 59 mL/min/1.73m2 Moderately to severely decreased ??30 - 44 mL/min/1.73m2 Severely decreased ?15 - 29 mL/min/1.73m2 Kidney Failure ?< 15 ??mL/min/1.73m2 *Relative to young adult level Estimated glomerular filtration rate is determined by the 2020 CKD-EPI equation recommended by the National Kidney Foundation (A Unifying Approach to GFR Estimation: Recommendations of the NKF-ASK Task Force on Reassessing the Inclusion of Race in Diagnosing Kidney Disease, JASN 202). The CKD-EPI equation should not be used for patients with unstable renal function and has not been validated in children and those over 70. Current interpretive data was last reviewed 2021. Blood 06/19/2024 9:20 AM CDT 06/19/2024 9:29 AM CDT Rosemary Bauman TOOL POLISHER LAB BLOOD ORDERABLES Final Res ult [facility] [address] Department [place] [address] * Differential, auto (06/19/2024 9:20 AM CDT) Neutrophil abs 6.0 1.5 - 6.5 K/cumm Imm gran abs 0.0 0.0 - 0.1 K/cumm [facility] Lymphocyte abs 1.7 0.8 - 3.3 K/cumm [facility] Monocyte abs 0.7 0.2 - 0.8 K/cumm [facility] Eosinophil abs 0.1 0.0 - 0.5 K/cumm [facility] Basophil abs 0.1 0.0 - 0.1 K/cumm [facility] Neutrophil pct 70.1 % [facility] Comment: Interpretive Data Percent cell count reference ranges are not reported, since discordance with absolute values may lead to misinterpretation of CBC data. Current Interpretive Data was last revised on 2018. Imm gran pct 0.4 % [facility] Comment: Interpretive Data Percent cell count reference ranges are not reported, since discordance with absolute values may lead to misinterpretation of CBC data. Current Interpretive Data was last revised on 2018. Lymphocyte pct 19.8 % [facility] Comment: Interpretive Data Percent cell count reference ranges are not reported, since discordance with absolute values may lead to misinterpretation of CBC data. Current Interpretive Data was last revised on 2018. Monocyte pct 7.8 % [facility] Comment: Interpretive Data Percent cell count reference ranges are not reported, since discordance with absolute values may lead to misinterpretation of CBC data. Current Interpretive Data was last revised on 2018. Eosinophil pct 1.2 % [facility] Comment: Interpretive Data Percent cell count reference ranges are not reported, since discordance with absolute values may lead to misinterpretation of CBC data. Current Interpretive Data was last revised on 2018. Basophil pct 0.7 % [facility] Comment: Interpretive Data Percent cell count reference ranges are not reported, since discordance with absolute values may lead to misinterpretation of CBC data. Current Interpretive Data was last revised on 2018. Blood 06/19/2024 9:20 AM CDT 06/19/2024 9:29 AM CDT us Rosemary Bauman TOOL POLISHER LAB BLOOD ORDERABLES Final Res ult [facility] [address] Department [place] [address] * CBC with auto differential (06/19/2024 9:20 AM CDT) WBC 8.5 3.8 - 9.9 K/cumm Hgb 13.5 11.9 - 15.5 g/dL [facility] Hct 39.9 35.6 - 45.5 % [facility] Plt 237 150 - 400 K/cumm [facility] MPV 9.1 9.1 - 12.3 fL [facility] RBC 4.19 3.90 - 5.20 M/cumm [facility] MCV 95.2 81.3 - 96.4 fL [facility] MCH 32.2 27.1 - 33.3 pg [facility] MCHC 33.8 32.3 - 35.7 g/dL [facility] RDW CV 12.3 11.1 - 14.9 % [facility] RDW SD 43.2 35.7 - 48.1 fL [facility] NRBC abs 0.00 0.00 - 0.01 K/cumm [facility] Blood 06/19/2024 9:20 AM CDT 06/19/2024 9:29 AM CDT Rosemary Bauman TOOL POLISHER LAB BLOOD ORDERABLES Final Res ult Performing Organization Address City/[facility]/ZIP Co de Phone Number [facility] [address] Department [place] [address] * Basic metabolic panel (06/19/2024 9:20 AM CDT) Sodium 142 135 - 145 mmol/L Potassium, pl 4.3 3.3 - 4.9 mmol/L [facility] Chloride 109 97 - 110 mmol/L [facility] CO2 23 22 - 32 mmol/L [facility] Anion gap 10 2 - 15 mmol/L [facility] BUN 17 6 - 25 mg/dL [facility] Creatinine 0.96 0.60 - 1.10 mg/dL [facility] Glucose 113 70 - 199 mg/dL [facility] Comment: Interpretive Data Fasting glucose >/= 126 mg/dl is diagnostic for diabetes. ?? Fasting is defined as no caloric intake for at least 8 hours. Fasting glucose between 100 mg/dl to 125 mg/dl is diagnostic of prediabetes. In a patient with classic symptoms of hyperglycemia or hyperglycemic crisis, a random glucose >/= 200 mg/dl is diagnostic for diabetes. In the absence of unequivocal hyperglycemia, results should be confirmed by repeat testing. The classification and Diagnosis of Diabetes Diabetes Care 202; 46: S19-S40. Current interpretive data was last revised 2022. Calcium 9.0 8.5 - 10.3 mg/dL [facility] Blood 06/19/2024 9:20 AM CDT 06/19/2024 9:29 AM CDT us Rosemary Bauman NP LAB BLOOD ORDERABLES Final Res ult [facility] [address] Department [place] [address] documented in this encounter Visit Diagnoses Diagnosis Pre-op testing- Primary Unspecified pre-operative examination documented in this encounter Discontinued Medications Medication Sig Discontinue Reason Start Date End Da te cyclobenzaprine (FLEXERIL) 5 mg tablet Take 1 tablet (5 mg total) by mouth 3 (three) times a day as needed for muscle spasms for up to 5 days Therapy completed 07/26/2022 06/19/2024 documented as of this encounter Historical Medications * This list may reflect changes made after this encounter. rosuvastatin (CRESTOR) 40 mg tablet Take 1 tablet (40 mg total) by mouth daily 05/16/2024 irbesartan (AVAPRO) 300 mg tablet Take 1 tablet (300 mg total) by mouth daily magnesium oxide (MAG-OX) 400 mg (241.3 mg elemental magnesium) tablet Take 1 tablet (400 mg total) by mouth 2 (two) times a day 05/18/2024 flecainide (TAMBOCOR) 50 mg tablet Take 1 tablet (50 mg total) by mouth 2 (two) times a day metoprolol XL (TOPROL-XL) 50 mg extended release tablet Take by mouth daily added in this encounter Care Teams Director Oncology Relationship Specialty Start Date End Date Giulia Kirkpatrick MD [address] [address] PCP - General Family Medicine 07/24/22 documented as of this encounter
--- OUTSIDE RECORDS SUMMARY | 2024-10-07 14:24 | XMS_ITS | Encounter Summary ---
Author Organization [facility] Address [address] [place] [id number] Care Team Providers Care Hand Alterations Tailor Name Role Phone Giulia Kirkpatrick MD Primary Care Provider + Reason for Visit * Auth/Cert (Routine) Specialty Diagnoses / Procedures Referred By Contac t Referred To Contact Diagnoses V-tach (HCC) V-tach (HCC) [I47.20] Procedures ABLATION VENTRICULAR TACHYCARDIA (VT) INCLUDES 3D MAPPING (WHEN USED) 63530 Referral ID Status Reason Start Date Expiration Date Visits Re quested Visits Authorized [id number] 1 1 Encounter Details Date Type Department Care Team (Late st Contact Info) Description 06/28/2024 8:00 AM CDT - 06/28/2024 11:35 AM CDT Surgery [facility] Electrophysiology Lab [address] [place] [address] Walter Dutton MD [address] [place] [address] ABLATION VENTRICULAR TACHYCARDIA (VT) INCLUDES 3D MAPPING (WHEN USED) 78533 Surgery Details Date/Time Status Location OR Service Patient Class Case Class Case Type Trauma Case? 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 Gender Identity Not on file Sexual Orientation Not on file documented as of this encounter Last Filed Vital Signs Vital Sign Reading Time Taken Comments Blood Pressure 133/67 06/28/2024 11:25 AM CDT Pulse 67 06/28/2024 11:35 AM CDT Temperature 36.2 ??C (97.2 ??F) 06/28/2024 11:15 AM C DT Respiratory Rate 14 06/28/2024 11:35 AM CDT Oxygen Saturation 99% 06/28/2024 11:35 AM CDT Inhaled Oxygen Concentration - - Weight 86 kg (189 lb 8 oz) 06/28/2024 6:28 AM CD T Height 162.6 cm (5' 4 ) 06/28/2024 6:28 AM CDT Body Mass Index 32.71 06/28/2024 6:28 AM CDT documented in this encounter Discharge Summaries * Walter Dutton MD - 06/28/2024 7:33 PM CDT Inpatient Discharge Summary BRIEF OVERVIEW Admitting Provider: Walter Dutton MD Discharge Provider: No att. providers found Primary Care Physician at Discharge: Giulia Kirkpatrick MD [phone] Admission Date: 06/28/2024 Discharge Date: Admission Location: [facility] Problems/Diagnoses: Principal Problem: V-tach (HCC) Active Problems: Hx of atrial flutter Resolved Problems: No resolved hospital problems. DETAILS OF HOSPITAL STAY Presenting Problem/History of Present Illness: Patient a 44-year-old female with recurrent nonsustained symptomatic VT and episodes of SVT documented on the monitor. Patient has severe symptoms of palpitations dizziness and near passing out during these episodes. She was referred to me by Dr. Walsh. As outpatient patient we in detail discussed the options off further treatment were discussed and patient agreed to proceed with procedure specified The patient was seen examined by me Dr. Dutton in preop area. Pertinent information was reviewed. Hospital Course: Uneventful Active Issues Requiring Follow-up: Arrhythmia management Test Results Pending at Discharge: NA Ablation of caval tricuspid isthmus flutter note Surgical Team: Surgeons and Role: * Walter Dutton MD - Primary Anesthesiologist: Toya Adler MD PhD COOK CASHIER FOOD PREP: Jonathan Shoemaker CRNA Anesthesiologist Gas Plant Operator: Denver Garcia AA Clear Coat Sprayer: Kimberly Wallace RN CV Documenter: Sharita Burgos RN CV Scrub: Delmer Whitfield DATE OF SURGERY : 06/28/2024 Preoperative Diagnosis: Pre-op Diagnosis * V-tach (HCC) [I47.20] Postoperative Diagnosis: Post-op Diagnosis Atrial flutter, typical Inducible atrial fibrillation during EP study previously not treated Palpitations Sleep apnea Obesity No ventricular tachycardia or ventricular fibrillation could be induced with aggressive right ventricular pacing with quadruple prematures Procedure(s): Procedure(s) (LRB): ABLATION SUPRAVENTRICULAR TACHYCARDIA 74389 (N/A) INTRACARDIAC ECHOCARDIOGRAM (+) 60862 (N/A) 3D MAPPING OF TACHYCARDIA (+) 71568 (N/A) Ultrasound guidance for venous line placement Details of procedure : After informed consent was obtained patient was brought to cardiac electrophysiology lab at [facility] in [facility] in both [place] sterilely prepped and draped in usual fashion The venous access was done under ultrasound fluoroscopy guidance. The access using 8 Singaporean sheath i was done in right femoral vein and 2 5 Singaporean sheaths were inserted to the left femoral vein No arterial line was placed Two quadripolar catheters were used that were positioned in right atrium right ventricle. A decapolar catheter was placed to the right femoral vein and positioned coronary sinus. Pacing from right atrium left atrium and right ventricle were done. Attempt to induce ventricular tachycardia ventricular fibrillation was done with straight right ventricular pacing all way to ERP in with right ventricular premature pacing with S2-S3 S4 and S5 all way to ERP. Adenosine was administered and prolonged second-degree AV block was documented. 3.[address] SF DF catheter were placed into the central circulation positioned in the rightatrium and then right ventricle. Patient was in in sinus rhythm at the time of presentation. EP study was performed Atrial flutter was induced on multiple occasions when paced anywhere from 240- 260 milliseconds pacetrain from left or right atrium. To that 3.[address] SF DF catheter was used for cavotricuspid isthmus ablation that was inserted through the deflectable sheath Intracardiac ultrasound was used for guidance of typical cavotricuspid isthmus flutter ablation Three-dimensional mapping of cavotricuspid isthmus was done. Ablation not exceeding 50 w and 15 seconds was done in caval tricuspid isthmus. Post pacing interval measuring from CS to ablation catheter and vice versa was 45 milliseconds prior to planned ablation in cavotricuspid isthmus The Bidirectional block was documented cavotricuspid isthmus when patient was in sinus rhythm with post pacing interval measuring more than 135 milliseconds when paced from ablation measuring 125 milliseconds and vice versa. Bidirectional block continued to be present 5 minutes after final ablation. Differential pacing was done and bidirectional block was still present. After final ablation all sheaths were catheters removed hemostasis was obtained with manual compression Patient tolerated procedure well . no complication Ablation Ablation Site: right atrium. System used: [employer] (3D). Catheter inserted successfully. Energy type: radio frequency. Irrigation method: open irrigation cool tip. The ablation procedure was successful. Temperature achieved: 33 C. Energy delivered: 50 woo. Impedance: 117 ohms. Duration of energy delivered: 632 seconds. Num of energy applications: 34. There were no complications during the procedure. There is no edy ctional rhythm during energy delivery. EP study findings Findings: Presenting rhythm sinus rhythm With right ventricular pacing concentric CS activation was present Baseline intervals were normal No ventricular tachycardia or ventricular fibrillation could be induced with aggressive right ventricular pacing with quadruple prematures With right and left atrial pacing one-to-one antegrade AV conduction all way down to 380 milliseconds., a two-to-one block was documented at 320 milliseconds pace train With right and left atrial pacing bundle branch block aberrancy was documented multiple occasions Sinus node recovery time and corrected sinus node recovery time were normal With premature pacing no ump from slow to fast pathway was documented With administration of adenosine through the periphery prolonged second-degree AV block documented strongly suggesting absence of antegrade conducting accessory pathway After administration of adenosine atrial flutter was induced flutter that degenerated to atrial fibrillation was documented and lasted less than 30 seconds and terminated without prolonged pauses Three-dimensional mapping and ablation findings Post pacing interval prior to ablation was 35 milliseconds when paced on cavotricuspid isthmus lineand measuring at CS 7-8 electrodes at the os of coronary sinus and vice versa. Post ablation post pacing interval was a better than 125 milliseconds. Bidirectional block continued to be present 5 minutes after final ablation. Differential pacing wasdone and bidirectional block was still present. No left-sided ablation was done no ablation of pulmonary vein isolation was planned in this patientwho previously had no documentation of atrial fibrillation ablation Post ablation intervals and antegrade AV jhoan conduction remained essentially unchanged No PVC s or Ventricular tachycardia was attempted or done because patient had noted accommodation she had no PVCs or VT. Wide complex tachycardia that was recorded in the past on outpatient monitor most likely was related to the atrial flutter with aberrancy Intracardiac echo shows Normal-appearing cavotricuspid isthmus Normal appearing tricuspid valve was seen The right atrial size was normal Estimated Blood Loss: 10 mL Intraoperative Fluids: See Anesthesia note Specimens: No specimen collected in procedure Implants: Nothing was implanted during the procedure Blood/Blood Products Transfused: none Complications: None Condition on Discharge from the operating room was stable Complications: None Condition on Discharge from the operating room was stable Walter Dutton MD Date: 06/28/2024 Time: 11:36 AM No Resident involved on case Patient underwent EP study. Presenting rhythm was sinus. No PVCs were seen at baseline before any catheters were placed. With RV pacing concentric CS activation was present No ventricular tachycardia or ventricular fibrillation could be induced. Accessory pathway was absent Dual AV node physiology or AV node reentry tachycardia could not be documented. Atrial flutter was induced on multiple occasions when paced anywhere from 240- 260 milliseconds pacetrain from left or right atrium. Atrial cycle length was about 280 milliseconds. Atrial flutter which degenerated to atrial fib and terminated Without a pause. Decision was made to ablate cavotricuspid isthmus flutter. Post pacing interval prior to ablation was 35 milliseconds when paced on cavotricuspid isthmus line and measuring at CS 7 8 electrodes at the os of coronary sinus and vice versa. Post ablation post pacing interval was a better than 125 milliseconds. Differential pacing documented bidirectional block. It was persistent at least 5 minutes after final ablation. After final ablation intervals remained essentially unchanged with normal HV interval. One-to-one antegrade AV conduction was documented all way down to 400 milliseconds pace train Patient tolerated procedure well no complications Pertinent Test Results: NA Discharge Details Physical Exam at Discharge: Discharge Condition: good Pulse: 65 Resp: 18 BP: 123/71 Temp: 36.8 ??C (98.3 ??F) Weight: 86.4 kg (190 lb 9 oz) Pertinent Exam Findings at Discharge: essentially unchanged Discharge Disposition: Discharge to home or self care Code Status at Discharge: full code Discharge Instructions: Advance activities after 48 hours after Dc as tolerated Fu was scheduled Total dc planning more than [address] Dutton time Discharge Medications: Current Medications TAKE these medications apixaban 5 mg tablet Take 1 tablet (5 mg total) by mouth every 12 (twelve) hours For: atrial flutter, ventricular tachycardia ablation Commonly known as: ELIQUIS flecainide 50 mg tablet Take 1 tablet (50 mg total) by mouth 2 (two) times a day Commonly known as: TAMBOCOR irbesartan 300 mg tablet Take 1 tablet (300 mg total) by mouth daily Commonly known as: AVAPRO magnesium oxide 400 mg (241.3 mg elemental magnesium) tablet Take 1 tablet (400 mg total) by mouth 2 (two) times a day Commonly known as: MAG-OX metoprolol XL 50 mg extended release tablet Take by mouth daily Commonly known as: TOPROL-XL rosuvastatin 40 mg tablet Take 1 tablet (40 mg total) by mouth daily Commonly known as: CRESTOR Outpatient Follow-Up: Fu was scheduled Total dc planning more than [address] Dutton time Home O2: documented in this encounter Medications at Time of Discharge apixaban (ELIQUIS) 5 mg tabletIndications: Atrial Flutter,ventricula r tachycardia ablation Take 1 tablet (5 mg total) by mouth every 12 (twelve) hours 60 tablet 06/29/2024 flecainide (TAMBOCOR) 50 mg tablet Take 1 tablet (50 mg total) by mouth 2 (two) times a day irbesartan (AVAPRO) 300 mg tablet Take 1 tablet (300 mg total) by mouth daily magnesium oxide (MAG-OX) 400 mg (241.3 mg elemental magnesium) tablet Take 1 tablet (400 mg total) by mouth 2 (two) times a day 05/18/2024 metoprolol XL (TOPROL-XL) 50 mg extended release tablet Take by mouth daily rosuvastatin (CRESTOR) 40 mg tablet Take 1 tablet (40 mg total) by mouth daily 05/16/2024 documented as of this encounter Ordered Prescriptions Prescription Sig Dispense Quantity Refills Last Filled Start Date End Date apixaban (ELIQUIS) 5 mg tabletIndications:A trial Flutter,ventricular tachycardia ablation Take 1 tablet (5 mg total) by mouth every 12 (twelve) hours 60 tablet 06/29/2024 documented in this encounter Discharge Disposition Disposition Code Departure Means Destination Comment s Discharge to home or self care Private Vehicle documented in this encounter Progress Notes * Walter Dutton MD - 06/29/2024 8:14 AM CDT Dc is planned for today documented in this encounter Miscellaneous Notes * Plan of Care - Hannah Dumont RN - 06/29/2024 10:23 AM CDT Goals: 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;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 for Treatment: discharge Summary: Problem: Cardiovascular Goal: Absence of cardiac dysrhythmias or at baseline Outcome: Adequate for Discharge Problem: Discharge Planning Goal: Understanding discharge needs will improve Outcome: Adequate for Discharge * Plan of Care - Johnny Hernandez - 06/29/2024 5:18 AM CDT Problem: Cardiovascular Goal: Absence of cardiac dysrhythmias or at baseline Outcome: Progressing Problem: Discharge Planning Goal: Understanding discharge needs will improve Outcome: Progressing Goals: Clinical Goals for the Shift: VSS, Comfort, Safety * Post-Procedure Note - Walter Dutton MD - 06/28/2024 11:33 AM CDT Patient underwent EP study. Presenting rhythm was sinus. No PVCs were seen at baseline before any catheters were placed. With RV pacing concentric CS activation was present No ventricular tachycardia or ventricular fibrillation could be induced. Accessory pathway was absent Dual AV node physiology or AV node reentry tachycardia could not be documented. Atrial flutter was induced on multiple occasions when paced anywhere from 240- 260 milliseconds pacetrain from left right atrium. Atrial cycle length was about 280 milliseconds. Atrial flutter which degenerated to atrial fib and terminated Without a pause. Decision was made to ablate cavotricuspid isthmus flutter. Post pacing interval prior to ablation was 35 milliseconds when paced on cavotricuspid isthmus line and measuring at CS 7 8 electrodes at the os of coronary sinus and vice versa. Post ablation post pacing interval was a better than 125 milliseconds. Differential pacing documented bidirectional block. It was persistent at least 5 minutes after final ablation. After final ablation intervals remained essentially unchanged with normal HV interval. One-to-one antegrade AV conduction was documented all way down to 400 milliseconds pace train Patient tolerated procedure well no complications * Op Note - Walter Dutton MD - 06/28/2024 8:07 AM CDT Ablation of caval tricuspid isthmus flutter note Surgical Team: Surgeons and Role: * Walter Dutton MD - Primary Anesthesiologist: Toya Adler MD PhD COOK CASHIER FOOD PREP: Jonathan Shoemaker CRNA Anesthesiologist Gas Plant Operator: Denver Garcia AA Clear Coat Sprayer: Kimberly Wallace RN CV Documenter: Sharita Burgos RN CV Scrub: Delmer Whitfield DATE OF SURGERY : 06/28/2024 Preoperative Diagnosis: Pre-op Diagnosis * V-tach (HCC) [I47.20] Postoperative Diagnosis: Post-op Diagnosis Atrial flutter, typical Inducible atrial fibrillation during EP study previously not treated Palpitations Sleep apnea Obesity No ventricular tachycardia or ventricular fibrillation could be induced with aggressive right ventricular pacing with quadruple prematures Procedure(s): Procedure(s) (LRB): ABLATION SUPRAVENTRICULAR TACHYCARDIA 09008 (N/A) INTRACARDIAC ECHOCARDIOGRAM (+) 17022 (N/A) 3D MAPPING OF TACHYCARDIA (+) 41416 (N/A) Ultrasound guidance for venous line placement Details of procedure : After informed consent was obtained patient was brought to cardiac electrophysiology lab at [facility] in both [place] sterilely prepped and draped in usual fashion The venous access was done under ultrasound fluoroscopy guidance. The access using 8 Singaporean sheath i was done in right femoral vein and 2 5 [place]an sheaths were inserted to the left femoral vein No arterial line was placed Two quadripolar catheters were used that were positioned in right atrium right ventricle. A decapolar catheter was placed to the right femoral vein and positioned coronary sinus. Pacing from right atrium left atrium and right ventricle were done. Attempt to induce ventricular tachycardia ventricular fibrillation was done with straight right ventricular pacing all way to ERP in with right ventricular premature pacing with S2-S3 S4 and S5 all way to ERP. Adenosine was administered and prolonged second-degree AV block was documented. 3.[address] SF DF catheter were placed into the central circulation positioned in the rightatrium and then right ventricle. Patient was in in sinus rhythm at the time of presentation. EP study was performed Atrial flutter was induced on multiple occasions when paced anywhere from 240- 260 milliseconds pacetrain from left or right atrium. To that 3.[address] SF DF catheter was used for cavotricuspid isthmus ablation that was inserted through the deflectable sheath Intracardiac ultrasound was used for guidance of typical cavotricuspid isthmus flutter ablation Three-dimensional mapping of cavotricuspid isthmus was done. Ablation not exceeding 50 w and 15 seconds was done in caval tricuspid isthmus. Post pacing interval measuring from CS to ablation catheter and vice versa was 45 milliseconds prior to planned ablation in cavotricuspid isthmus The Bidirectional block was documented cavotricuspid isthmus when patient was in sinus rhythm with post pacing interval measuring more than 135 milliseconds when paced from ablation measuring 125 milliseconds and vice versa. Bidirectional block continued to be present 5 minutes after final ablation. Differential pacing was done and bidirectional block was still present. After final ablation all sheaths were catheters removed hemostasis was obtained with manual compression Patient tolerated procedure well . no complication Ablation Ablation Site: right atrium. System used: [employer] (3D). Catheter inserted successfully. Energy type: radio frequency. Irrigation method: open irrigation cool tip. The ablation procedure was successful. Temperature achieved: 33 C. Energy delivered: 50 woo. Impedance: 117 ohms. Duration of energy delivered: 632 seconds. Num of energy applications: 34. There were no complications during the procedure. There is no edy ctional rhythm during energy delivery. EP study findings Findings: Presenting rhythm sinus rhythm With right ventricular pacing concentric CS activation was present Baseline intervals were normal No ventricular tachycardia or ventricular fibrillation could be induced with aggressive right ventricular pacing with quadruple prematures With right and left atrial pacing one-to-one antegrade AV conduction all way down to 380 milliseconds., a two-to-one block was documented at 320 milliseconds pace train With right and left atrial pacing bundle branch block aberrancy was documented multiple occasions Sinus node recovery time and corrected sinus node recovery time were normal With premature pacing no ump from slow to fast pathway was documented With administration of adenosine through the periphery prolonged second-degree AV block documented strongly suggesting absence of antegrade conducting accessory pathway After administration of adenosine atrial flutter was induced flutter that degenerated to atrial fibrillation was documented and lasted less than 30 seconds and terminated without prolonged pauses Three-dimensional mapping and ablation findings Post pacing interval prior to ablation was 35 milliseconds when paced on cavotricuspid isthmus lineand measuring at CS 7-8 electrodes at the os of coronary sinus and vice versa. Post ablation post pacing interval was a better than 125 milliseconds. Bidirectional block continued to be present 5 minutes after final ablation. Differential pacing wasdone and bidirectional block was still present. No left-sided ablation was done no ablation of pulmonary vein isolation was planned in this patientwho previously had no documentation of atrial fibrillation ablation Post ablation intervals and antegrade AV jhoan conduction remained essentially unchanged No PVC s or Ventricular tachycardia was attempted or done because patient had noted accommodation she had no PVCs or VT. Wide complex tachycardia that was recorded in the past on outpatient monitor most likely was related to the atrial flutter with aberrancy Intracardiac echo shows Normal-appearing cavotricuspid isthmus Normal appearing tricuspid valve was seen The right atrial size was normal Estimated Blood Loss: 10 mL Intraoperative Fluids: See Anesthesia note Specimens: No specimen collected in procedure Implants: Nothing was implanted during the procedure Blood/Blood Products Transfused: none Complications: None Condition on Discharge from the operating room was stable Complications: None Condition on Discharge from the operating room was stable Walter Dutton MD Date: 06/28/2024 Time: 11:36 AM No Resident involved on case Patient underwent EP study. Presenting rhythm was sinus. No PVCs were seen at baseline before any catheters were placed. With RV pacing concentric CS activation was present No ventricular tachycardia or ventricular fibrillation could be induced. Accessory pathway was absent Dual AV node physiology or AV node reentry tachycardia could not be documented. Atrial flutter was induced on multiple occasions when paced anywhere from 240- 260 milliseconds pacetrain from left or right atrium. Atrial cycle length was about 280 milliseconds. Atrial flutter which degenerated to atrial fib and terminated Without a pause. Decision was made to ablate cavotricuspid isthmus flutter. Post pacing interval prior to ablation was 35 milliseconds when paced on cavotricuspid isthmus line and measuring at CS 7 8 electrodes at the os of coronary sinus and vice versa. Post ablation post pacing interval was a better than 125 milliseconds. Differential pacing documented bidirectional block. It was persistent at least 5 minutes after final ablation. After final ablation intervals remained essentially unchanged with normal HV interval. One-to-one antegrade AV conduction was documented all way down to 400 milliseconds pace train Patient tolerated procedure well no complications * Brief Op Note - Walter Dutton MD - 06/28/2024 8:07 AM CDT Ablation of caval tricuspid isthmus flutter note Surgical Team: Surgeons and Role: * Walter Dutton MD - Primary Anesthesiologist: Toya Adler MD PhD COOK CASHIER FOOD PREP: Jonathan Shoemaker CRNA Anesthesiologist Gas Plant Operator: Denver Garcia AA Clear Coat Sprayer: Kimberly Wallace RN CV Documenter: Sharita Burgos RN CV Scrub: Delmer Whitfield DATE OF SURGERY : 06/28/2024 Preoperative Diagnosis: Pre-op Diagnosis * V-tach (HCC) [I47.20] Postoperative Diagnosis: Post-op Diagnosis Atrial flutter, typical Inducible atrial fibrillation during EP study previously not treated Palpitations Sleep apnea Obesity No ventricular tachycardia or ventricular fibrillation could be induced with aggressive right ventricular pacing with quadruple prematures Procedure(s): Procedure(s) (LRB): ABLATION SUPRAVENTRICULAR TACHYCARDIA 22590 (N/A) INTRACARDIAC ECHOCARDIOGRAM (+) 07178 (N/A) 3D MAPPING OF TACHYCARDIA (+) 74005 (N/A) Ultrasound guidance for venous line placement Details of procedure : After informed consent was obtained patient was brought to cardiac electrophysiology lab at [facility] in [place] [place] in both [place]ins sterilely prepped and draped in usual fashion The venous access was done under ultrasound fluoroscopy guidance. The access using 8 [place]an sheath i was done in right femoral vein and 2 5 [place]an sheaths were inserted to the left femoral vein No arterial line was placed Two quadripolar catheters were used that were positioned in right atrium right ventricle. A decapolar catheter was placed to the right femoral vein and positioned coronary sinus. Pacing from right atrium left atrium and right ventricle were done. Attempt to induce ventricular tachycardia ventricular fibrillation was done with straight right ventricular pacing all way to ERP in with right ventricular premature pacing with S2-S3 S4 and S5 all way to ERP. Adenosine was administered and prolonged second-degree AV block was documented. 3.[address] SF DF catheter were placed into the central circulation positioned in the rightatrium and then right ventricle. Patient was in in sinus rhythm at the time of presentation. EP study was performed Atrial flutter was induced on multiple occasions when paced anywhere from 240- 260 milliseconds pacetrain from left or right atrium. To that 3.[address] SF DF catheter was used for cavotricuspid isthmus ablation that was inserted through the deflectable sheath Intracardiac ultrasound was used for guidance of typical cavotricuspid isthmus flutter ablation Three-dimensional mapping of cavotricuspid isthmus was done. Ablation not exceeding 50 w and 15 seconds was done in caval tricuspid isthmus. Post pacing interval measuring from CS to ablation catheter and vice versa was 45 milliseconds prior to planned ablation in cavotricuspid isthmus The Bidirectional block was documented cavotricuspid isthmus when patient was in sinus rhythm with post pacing interval measuring more than 135 milliseconds when paced from ablation measuring 125 milliseconds and vice versa. Bidirectional block continued to be present 5 minutes after final ablation. Differential pacing was done and bidirectional block was still present. After final ablation all sheaths were catheters removed hemostasis was obtained with manual compression Patient tolerated procedure well . no complication Ablation Ablation Site: right atrium. System used: [place] [employer] (3D). Catheter inserted successfully. Energy type: radio frequency. Irrigation method: open irrigation cool tip. The ablation procedure was successful. Temperature achieved: 33 C. Energy delivered: 50 owo. Impedance: 117 ohms. Duration of energy delivered: 632 seconds. Num of energy applications: 34. There were no complications during the procedure. There is no edy ctional rhythm during energy delivery. EP study findings Findings: Presenting rhythm sinus rhythm With right ventricular pacing concentric CS activation was present Baseline intervals were normal No ventricular tachycardia or ventricular fibrillation could be induced with aggressive right ventricular pacing with quadruple prematures With right and left atrial pacing one-to-one antegrade AV conduction all way down to 380 milliseconds., a two-to-one block was documented at 320 milliseconds pace train With right and left atrial pacing bundle branch block aberrancy was documented multiple occasions Sinus node recovery time and corrected sinus node recovery time were normal With premature pacing no ump from slow to fast pathway was documented With administration of adenosine through the periphery prolonged second-degree AV block documented strongly suggesting absence of antegrade conducting accessory pathway After administration of adenosine atrial flutter was induced flutter that degenerated to atrial fibrillation was documented and lasted less than 30 seconds and terminated without prolonged pauses Three-dimensional mapping and ablation findings Post pacing interval prior to ablation was 35 milliseconds when paced on cavotricuspid isthmus lineand measuring at CS 7-8 electrodes at the os of coronary sinus and vice versa. Post ablation post pacing interval was a better than 125 milliseconds. Bidirectional block continued to be present 5 minutes after final ablation. Differential pacing wasdone and bidirectional block was still present. No left-sided ablation was done no ablation of pulmonary vein isolation was planned in this patientwho previously had no documentation of atrial fibrillation ablation Post ablation intervals and antegrade AV jhoan conduction remained essentially unchanged No PVC s or Ventricular tachycardia was attempted or done because patient had noted accommodation she had no PVCs or VT. Wide complex tachycardia that was recorded in the past on outpatient monitor most likely was related to the atrial flutter with aberrancy Intracardiac echo shows Normal-appearing cavotricuspid isthmus Normal appearing tricuspid valve was seen The right atrial size was normal Estimated Blood Loss: 10 mL Intraoperative Fluids: See Anesthesia note Specimens: No specimen collected in procedure Implants: Nothing was implanted during the procedure Blood/Blood Products Transfused: none Complications: None Condition on Discharge from the operating room was stable Complications: None Condition on Discharge from the operating room was stable Walter Dutton MD Date: 06/28/2024 Time: 11:36 AM No Resident involved on case Patient underwent EP study. Presenting rhythm was sinus. No PVCs were seen at baseline before any catheters were placed. With RV pacing concentric CS activation was present No ventricular tachycardia or ventricular fibrillation could be induced. Accessory pathway was absent Dual AV node physiology or AV node reentry tachycardia could not be documented. Atrial flutter was induced on multiple occasions when paced anywhere from 240- 260 milliseconds pacetrain from left or right atrium. Atrial cycle length was about 280 milliseconds. Atrial flutter which degenerated to atrial fib and terminated Without a pause. Decision was made to ablate cavotricuspid isthmus flutter. Post pacing interval prior to ablation was 35 milliseconds when paced on cavotricuspid isthmus line and measuring at CS 7 8 electrodes at the os of coronary sinus and vice versa. Post ablation post pacing interval was a better than 125 milliseconds. Differential pacing documented bidirectional block. It was persistent at least 5 minutes after final ablation. After final ablation intervals remained essentially unchanged with normal HV interval. One-to-one antegrade AV conduction was documented all way down to 400 milliseconds pace train Patient tolerated procedure well no complications * Pre-Cardiac Catheterization Workup and H&P - Walter Dutton MD - 06/28/2024 7:44 AM CDT Preoperative H&P-SL HV Procedure planned cardiac electrophysiological study and atrial fibrillation possible atrial flutter ablation possible cardiac catheterization Pre-procedure diagnosis Nonsustained symptomatic ventricular tachycardia longest 30 beats Symptomatic supraventricular tachycardia Palpitations Dizziness during the cardiac arrhythmia HPI Patient a 44-year-old female with recurrent nonsustained symptomatic VT and episodes of SVT documented on the monitor. Patient has severe symptoms of palpitations dizziness and near passing out during these episodes. She was referred to me by Dr. Wlash. As outpatient patient we in detail discussed the options off further treatment were discussed and patient agreed to proceed with procedure specified The patient was seen examined by me Dr. Dutton in preop area. Pertinent information was reviewed. Impression recommendation Nonsustained symptomatic ventricular tachycardia longest 30 beats Symptomatic supraventricular tachycardia Palpitations Dizziness during the cardiac arrhythmia Patient is here for cardiac electrophysiological study and possible ablation possible cardiac catheterization After indication alternatives risks complication were discussed in detail with patient as outpatient and again today patient agreed to proceed with planned procedure and gave informed consent informed consent. A planning to place 1 8 [place]an sheath into the right femoral vein and 2 5 [place] sheaths into the left femoral veins no neck access is planned mac anesthesia is planned for 1st part of procedure willassess need for additional lines a need for intubation depending on arrhythmia that he find and confirm it Past Medical History: Diagnosis Date Anxiety Atrial fibrillation (CMS/HCC) (HCC) Chronic back pain Delayed emergence from general anesthesia BP drops, O2 sat drops Depression Electrocution 16 years old, LOC, hospitalized History of degenerative disc disease Hyperlipidemia Hypertension Irritable bowel syndrome Kidney stone PONV (postoperative nausea and vomiting) Presence of electronic cardiac device event monitor Scoliosis Spinal stenosis Syncope 04/2024 Past Surgical History: Procedure Laterality Date SECTION x2 HAND DEBRIDEMENT from electrocution event at 16 years old HYSTERECTOMY ORAL SURGERY Medications Prior to Admission Medication Sig Dispense Refill Last Dose irbesartan (AVAPRO) 300 mg tablet Take 1 tablet (300 mg total) by mouth daily 06/27/2024 flecainide (TAMBOCOR) 50 mg tablet Take 1 tablet (50 mg total) by mouth 2 (two) times a day 06/25/2024 magnesium oxide (MAG-OX) 400 mg (241.3 mg elemental magnesium) tablet Take 1 tablet (400 mg total) by mouth 2 (two) times a day 06/25/2024 metoprolol XL (TOPROL-XL) 50 mg extended release tablet Take by mouth daily 06/25/2024 rosuvastatin (CRESTOR) 40 mg tablet Take 1 tablet (40 mg total) by mouth daily 06/25/2024 Current Facility-Administered Medications: acetaminophen (TYLENOL) tablet 500 mg, 500 mg, oral, Once, Rosemary Bauman, [employer] Carrier Fluids for Secondary Infusion - 0.9% Sodium Chloride, 30 mL, intravenous, PRN, Walter Dutton MD Carrier Fluids for Secondary Infusion - 0.9% Sodium Chloride, 30 mL, intravenous, PRN, MelitaC. Mitul, [employer] Lactated Ringer's (LR) infusion, 30 mL/hr, intravenous, Continuous, Rosemary Bauman, SYLVIA sodium chloride 0.9% flush 0.5-20 mL, 0.5-20 mL, intra-catheter, Q8H MITZY, Walter Dutton MD sodium chloride 0.9% flush 0.5-20 mL, 0.5-20 mL, intra-catheter, PRN, Walter Dutton MD sodium chloride 0.9% flush 0.5-20 mL, 0.5-20 mL, intra-catheter, PRN, Rosemary Bauman, [employer] Allergies Allergen Reactions Codeine Hallucinations Social History Tobacco Use Smoking status: Former Types: Cigarettes, Vaping Smokeless tobacco: Not on file Tobacco comments: Former smoker, currently vapes Substance and Sexual Activity Drug use: Yes Types: Marijuana Comment: occasional marijuana Sexual activity: Defer Alcohol Use: Not At Risk (06/28/2024) AUDIT-C Frequency of Alcohol Consumption: Monthly or less Average Number of Drinks: 1 or 2 Frequency of Binge Drinking: Never Family History Problem Relation Age of Onset COPD Mother Hypertension Mother Stroke Father Diabetes Father Heart disease Father Review of Systems: continues to have palpitations denies any chest pain. Denies focal weakness. Other 12 review of systems unremarkable Objective Vitals: 24hr Min/Max: Temp Min: 36.9 ??C (98.5 ??F) Max: 36.9 ??C (98.5 ??F) Pulse Min: 68 Max: 68 BP Min: 142/76 Max: 142/76 Resp Min: 19 Max: 19 SpO2 Min: 98 % Max: 98 % Most Recent: Vitals: 06/28/24 0628 BP: 142/76 Pulse: 68 Resp: 19 Temp: 36.9 ??C (98.5 ??F) SpO2: 98% No intake/output data recorded. No intake/output data recorded. Physical Exam: lungs clear Heart regular rate and rhythm mild systolic murmur present Neuro fully alert and oriented grossly no focal Musculoskeletal no joint swelling or erythema Lab/Radiology/Diagnostic Review: Laboratory review: Lab results in the last 24 hours: No results found for this or any previous visit (from the past 24 hour(s)). Lipids: No results found for: CHOL , CHLPL , HDL , LDLCALC , TRIG , CHOLHDL and Cardiac Enzymes: No results found for: CKTOTAL , CKMB , CKMBINDEX , TROPONINT ECG: Results for orders placed in visit on 06/19/24 ECG 12 lead Narrative Vent Rate: 74 bpm RR Interval: 807 msec ID Interval: 156 msec QRS Duration: 85 msec QT Interval: 379 msec QTC Interval: 406 msec P-R-T Mars: 69 - 42 - 33 degrees IMPRESSION: SINUS RHYTHM NORMAL ECG Electronically Signed By: Juan Munoz MD Assessment /Plan Principal Problem: V-tach (HCC) Nonsustained symptomatic ventricular tachycardia longest 30 beats Symptomatic supraventricular tachycardia Palpitations Dizziness during the cardiac arrhythmia Patient is here for cardiac electrophysiological study and possible ablation possible cardiac catheterization After indication alternatives risks complication were discussed in detail with patient as outpatient and again today patient agreed to proceed with planned procedure and gave informed consent informed consent. A planning to place 1 8 [place]an sheath into the right femoral vein and 2 5 [place]an sheaths into the left femoral veins no neck access is planned mac anesthesia is planned for 1st part of procedure willassess need for additional lines a need for intubation depending on arrhythmia that he find and confirm it * Pre-Procedure Note - Walter Dutton MD - 06/28/2024 7:40 AM CDT Preoperative short note Procedure planned cardiac electrophysiological study and atrial fibrillation possible atrial flutter ablation possible cardiac catheterization Pre-procedure diagnosis Nonsustained symptomatic ventricular tachycardia longest 30 beats Symptomatic supraventricular tachycardia Palpitations Dizziness during the cardiac arrhythmia HPI Patient a 44-year-old female with recurrent nonsustained symptomatic VT and episodes of SVT documented on the monitor. Patient has severe symptoms of palpitations dizziness and near passing out during these episodes. She was referred to me by Dr. Walsh. As outpatient patient we in detail discussed the options off further treatment were discussed and patient agreed to proceed with procedure specified The patient was seen examined by me Dr. Dutton in preop area. Pertinent information was reviewed. Review of system continues to have palpitations denies any chest pain. Denies focal weakness. Physical exam lungs clear Heart regular rate and rhythm mild systolic murmur present Neuro fully alert and oriented grossly no focal Musculoskeletal no joint swelling or erythema Impression recommendation Nonsustained symptomatic ventricular tachycardia longest 30 beats Symptomatic supraventricular tachycardia Palpitations Dizziness during the cardiac arrhythmia Patient is here for cardiac electrophysiological study and possible ablation possible cardiac catheterization After indication alternatives risks complication were discussed in detail with patient as outpatient and again today patient agreed to proceed with planned procedure and gave informed consent informed consent. A planning to place 1 8 [place]an sheath into the right femoral vein and 2 5 [place]an sheaths into the left femoral veins no neck access is planned mac anesthesia is planned for 1st part of procedure willassess need for additional lines a need for intubation depending on arrhythmia that he find and confirm it documented in this encounter Plan of Treatment Not on file documented as of this encounter Procedures Procedure Name Priority Date/Time Associated Diagnosis Comments ABLATION VT Routine 06/28/2024 10:50 AM CDT V-tach (HCC) POCT ACTIVATED CLOTTING TIME, HIGH RANGE Routine 06/28/2024 10:20 AM CDT POCT ACTIVATED CLOTTING TIME, HIGH RANGE Routine 06/28/2024 8:47 AM CDT documented in this encounter Results * ABLATION VT (06/28/2024 10:50 AM CDT) Anatomical Region Laterality Modality X-Ray Angiograph y Narrative 07/02/2024 7:53 PM CDT Table formatting from the original result was not included. Ablation of caval tricuspid isthmus flutter note Surgical Team: Surgeons and Role: ?? * Walter Dutton MD - Primary Anesthesiologist: Toya Adler MD PhD COOK CASHIER FOOD PREP: Jonathan Shoemaker CRNA Anesthesiologist Gas Plant Operator: Denver Garcia AA Clear Coat Sprayer: Kimberly Wallace RN CV Documenter: Sharita Burgos RN CV Scrub: Delmer Whitfield DATE OF SURGERY : 06/28/2024 Preoperative Diagnosis: Pre-op Diagnosis ?? * V-tach (HCC) [I47.20] Palpitations Postoperative Diagnosis: Post-op Diagnosis Atrial flutter, typical Inducible atrial fibrillation during EP study previously not treated Palpitations Sleep apnea Obesity No ventricular tachycardia or ventricular fibrillation could be induced with aggressive right ventricular pacing with quadruple prematures Procedure(s): Procedure(s) (LRB): ABLATION SUPRAVENTRICULAR TACHYCARDIA 00016 (N/A) INTRACARDIAC ECHOCARDIOGRAM (+) 48840 (N/A) 3D MAPPING OF TACHYCARDIA (+) 05940 (N/A) Ultrasound guidance for venous line placement Details of procedure : After informed consent was obtained patient was brought to cardiac electrophysiology lab at [facility] in [facility] in both [place]ins sterilely prepped and draped in usual fashion The venous access was done under ultrasound fluoroscopy guidance. The access using 8 [place]an sheath i was done in right femoral vein and 2 5 [place]an sheaths were inserted to the left femoral vein No arterial line was placed Two quadripolar catheters were used that were positioned in right atrium right ventricle. A decapolar catheter was placed to the right femoral vein and positioned coronary sinus. ?? Pacing from right atrium left atrium and right ventricle were done. Attempt to induce ventricular tachycardia ventricular fibrillation was done with straight right ventricular pacing all way to ERP in with right ventricular premature pacing with S2-S3 S4 and S5 all way to ERP. Adenosine was administered and prolonged second-degree AV block was documented. 3.[address] SF DF catheter were placed into the central circulation positioned in the right atrium and then right ventricle. ?? Patient was in in sinus rhythm at the time of presentation. EP study was performed Atrial flutter was induced on multiple occasions when paced anywhere from 240-260 milliseconds pace train from left or right atrium. To that 3.[address] SF DF catheter was used for cavotricuspid isthmus ablation that was inserted through the deflectable sheath Intracardiac ultrasound was used for guidance of typical cavotricuspid isthmus flutter ablation Three-dimensional mapping of cavotricuspid isthmus was done. ??Ablation not exceeding 50 w and 15 seconds was done in caval tricuspid isthmus. ?? Post pacing interval measuring from CS to ablation catheter and vice versa was 45 milliseconds prior to planned ablation in cavotricuspid isthmus The Bidirectional block was documented cavotricuspid isthmus when patient was in sinus rhythm with post pacing interval measuring more than 135 milliseconds when paced from ablation measuring 125 milliseconds and vice versa. ??Bidirectional block continued to be present 5 minutes after final ablation. ??Differential pacing was done and bidirectional block was still present. After final ablation all sheaths were catheters removed hemostasis was obtained with manual compression Patient tolerated procedure well . no complication Ablation Ablation Site: right atrium. System used: [place] [employer] (3D). Catheter inserted successfully. Energy type: radio frequency. Irrigation method: open irrigation cool tip. The ablation procedure was successful. Temperature achieved: 33 C. Energy delivered: 50 woo. Impedance: 117 ohms. Duration of energy delivered: 632 seconds. Num of energy applications: 34. There were no complications during the procedure. There is no edy ctional rhythm during energy delivery. EP study findings Findings: Presenting rhythm sinus rhythm With right ventricular pacing concentric CS activation was present Baseline intervals were normal No ventricular tachycardia or ventricular fibrillation could be induced with aggressive right ventricular pacing with quadruple prematures With right and left atrial pacing one-to-one antegrade AV conduction all way down to 380 milliseconds., a two-to-one block was documented at 320 milliseconds pace train With right and left atrial pacing bundle branch block aberrancy was documented multiple occasions Sinus node recovery time and corrected sinus node recovery time were normal With premature pacing no ump from slow to fast pathway was documented With administration of adenosine through the periphery prolonged second-degree AV block documented strongly suggesting absence of antegrade conducting accessory pathway After administration of adenosine atrial flutter was induced flutter that degenerated to atrial fibrillation was documented and lasted less than 30 seconds and terminated without prolonged pauses Three-dimensional mapping and ablation findings Post pacing interval prior to ablation was 35 milliseconds when paced on cavotricuspid isthmus line and measuring at CS 7-8 electrodes at the os of coronary sinus and vice versa. Post ablation post pacing interval was a better than 125 milliseconds. ?? Bidirectional block continued to be present 5 minutes after final ablation. ??Differential pacing was done and bidirectional block was still present. No left-sided ablation was done no ablation of pulmonary vein isolation was planned in this patient who previously had no documentation of atrial fibrillation ablation Post ablation intervals and antegrade AV jhoan conduction remained essentially unchanged No PVC s or Ventricular tachycardia was attempted or done because patient had noted accommodation she had no PVCs or VT. ??Wide complex tachycardia that was recorded in the past on outpatient monitor most likely was related to the atrial flutter with aberrancy Intracardiac echo shows Normal-appearing cavotricuspid isthmus Normal appearing tricuspid valve was seen The right atrial size was normal Estimated Blood Loss: 10 mL Intraoperative Fluids: See Anesthesia note Specimens: No specimen collected in procedure Implants: Nothing was implanted during the procedure ?? Blood/Blood Products Transfused: none Complications: None Condition on Discharge from the operating room was stable Complications: None Condition on Discharge from the operating room was stable Walter Dutton MD Date: 06/28/2024 ??Time: 11:36 AM No Resident involved on case Patient underwent EP study. Presenting rhythm was sinus. ??No PVCs were seen at baseline before any catheters were placed. ??With RV pacing concentric CS activation was present No ventricular tachycardia or ventricular fibrillation could be induced. ?? Accessory pathway was absent Dual AV node physiology or AV node reentry tachycardia could not be documented. Atrial flutter was induced on multiple occasions when paced anywhere from 240-260 milliseconds pace train from left or right atrium. Atrial cycle length was about 280 milliseconds. ??Atrial flutter which degenerated to atrial fib and terminated Without a pause. Decision was made to ablate cavotricuspid isthmus flutter. ??Post pacing interval prior to ablation was 35 milliseconds when paced on cavotricuspid isthmus line and measuring at CS 7 8 electrodes at the os of coronary sinus and vice versa. Post ablation post pacing interval was a better than 125 milliseconds. ?? Differential pacing documented bidirectional block. ??It was persistent at least 5 minutes after final ablation. After final ablation intervals remained essentially unchanged with normal HV interval. ??One-to-one antegrade AV conduction was documented all way down to 400 milliseconds pace train Patient tolerated procedure well no complications us Walter Dutton MD CV ELECTROPHYSIOLOGY PROCS Final Result * (ABNORMAL) POC Activated Clotting Time, High Range (06/28/2024 10:20 AM CDT) ACT 184(H) 87 - 138 sec Blood 06/28/2024 10:2 0 AM CDT 06/28/2024 10:20 AM CDT Walter Dutton MD LAB BLOOD ORDERABLES Final Result Performing Organization Address [facility] Co de Phone Number EVIN ARIAS [phone] [facility] [place] [employer] [place] [address] * POC Activated Clotting Time, High Range (06/28/2024 8:47 AM CDT) ACT 93 87 - 138 sec Blood 06/28/2024 8:47 AM CDT 06/28/2024 8:47 AM CDT Walter Dutton MD LAB BLOOD ORDERABLES Final Result Performing Organization Address [facility] Phone Number EVIN ARIAS [phone] [place] [place] [address] documented in this encounter Visit Diagnoses Diagnosis V-tach (HCC)- Primary Paroxysmal ventricular tachycardia Hx of atrial flutter V-tach (HCC) Paroxysmal ventricular tachycardia documented in this encounter Admitting Diagnoses Diagnosis V-tach (HCC) Paroxysmal ventricular tachycardia Hx of atrial flutter documented in this encounter Administered Medications Inactive Administered Medications - up to 3 most recent administrations Medication Order MAR Action Action Date Dose Rate Site apixaban (ELIQUIS) tablet 5 mg 5 mg, oral, Every 12 hours scheduled, First dose on Elissa 06/28/24 at 2130, Nurse to discontinue heparin infusion order and associated bolus at first administration of apixaban using ? order condition met? order source, Indications: ventricular tachycardia ablationIndications:ventricular tachycardia ablation Given 06/29/2024 8:18 AM CDT 5 mg Given 06/28/2024 9:05 PM CDT 5 mg BUPivacaine (MARCAINE) 0.25 % (2.5 mg/mL) preservative free injection Code/trauma/sedation medication, Starting on Elissa 06/28/24 at 0842, Intra-Procedure (CV) Given 06/28/2024 8:42 AM CDT 10 mL Right Groin BUPivacaine (MARCAINE) 0.25 % (2.5 mg/mL) preservative free injection Code/trauma/sedation medication, Starting on Elissa 06/28/24 at 0842, Intra-Procedure (CV) Given 06/28/2024 8:42 AM CDT 15 mL Left Groin Carrier Fluids for Secondary Infusion - 0.9% Sodium Chloride 30 mL, intravenous, As needed, For priming tubing and/or flushing, Starting on Elissa 06/28/24 at 0649, Pre-Procedure (CV), 0-250 ml/hr to flush line after IV infusions when no maintenance IV ordered. Infuse 30mL at the same rate as the secondary infusion. Run as primary IV, not intended for KVO. Carrier Fluids for Secondary Infusion - 0.9% Sodium Chloride 30 mL, intravenous, As needed, For priming tubing and/or flushing, Starting on Elissa 06/28/24 at 1256, Recovery (CV), 0-250 ml/hr to flush line after IV infusions when no maintenance IV ordered. Infuse 30mL at the same rate as the secondary infusion. Run as primary IV, not intended for KVO. Given 06/28/2024 1:06 PM CDT 30 mL flecainide (TAMBOCOR) tablet 50 mg 50 mg, oral, 2 times daily, First dose on Elissa 06/28/24 at 2100 Given 06/29/2024 8:18 AM CDT 50 mg Given 06/28/2024 9:05 PM CDT 50 mg heparin in 0.9% sodium chloride 1,000 units/500 mL (2 unit/mL) infusion (premix) Code/trauma/sedation medication, Starting on Elissa 06/28/24 at 0814, Intra-Procedure (CV) Given 06/28/2024 8:48 AM CDT 50 0 mL Given 06/28/2024 8:14 AM CDT 1,500 mL Lactated Ringer's (LR) infusion 30 mL/hr, intravenous, Continuous, Starting on Elissa 06/28/24 at 0730, Pre-Op New Bag 06/28/2024 8:06 AM CDT 50 mL/hr magnesium oxide (MAG-OX) tablet 400 mg 400 mg, oral, 2 times daily, First dose on Elissa 06/28/24 at 2100, 1 tablet = Magnesium oxide 400 mg = 241.3 mg elemental magnesium Given 06/29/2024 8:18 AM CDT 400 mg Given 06/28/2024 9:05 PM CDT 400 mg metoprolol XL (TOPROL-XL) extended release tablet 50 mg 50 mg, oral, Daily, First dose on Elissa 06/28/24 at 1600, Hold if heart rate less than 60 beats per minute or systolic blood pressure less than 90 mm Hg Tablets that are scored may be split, but do not crush, chew, dissolve, open or otherwise manipulate tablet/capsule. Given 06/29/2024 8:18 AM CDT 50 m g Given 06/28/2024 7:41 PM CDT 50 mg sodium chloride 0.9% flush 0.5-20 mL 0.5-20 mL, intra-catheter, As needed, line care, Starting on Elissa 06/28/24 at 0649, Pre-Procedure (CV), Flush volume based on line type and size. Flush before and after each use. sodium chloride 0.9% solution Code/trauma/sedation medication, Starting on Elissa 06/28/24 at 0814, Intra-Procedure (CV) Given 06/28/2024 8:14 AM CDT 1,000 mL documented in this encounter Active and Recently Administered Medications Times are shown in CDT. Scheduled Medication Order 06/27/2024 06/28/2024 06/29/2024 apixaban (ELIQUIS) tablet 5 mg 5 mg, oral, Every 12 hours scheduled, First dose on Elissa 06/28/24 at 2130, Nurse to discontinue heparin infusion order and associated bolus at first administration of apixaban using ? order condition met? order source, Indications: ventricular tachycardia ablation 2104 (Given - Provider: Johnny Hernandez) 817 (Given - Provider: Hannah Dumont, NICOL) flecainide (TAMBOCOR) tablet 50 mg 50 mg, oral, 2 times daily, First dose on Elissa 06/28/24 at 2100 2105 (Given - Provider: Johnny Hernandez) 08 (Given - Provider: Hannah Dumont, NICOL) irbesartan (AVAPRO) tablet 300 mg 300 mg, oral, Daily, First dose on Elissa 06/28/24 at 1600, On hold since Tue06/28/2024 at 1519 until manually unheld 151 (Held by Provider - Provider: Walter Dutton MD - Reason: Hold for Procedure)1600 (Dose Auto Held) 0900 (Not Given - Provider: Hannah Dumont, RN - Reason: See Provider Order)1529 (Unheld by Provider - Provider: Automatic Discharge Provider) magnesium oxide (MAG-OX) tablet 400 mg 400 mg, oral, 2 times daily, First dose on Tue06/28/24 at 2100, 1 tablet = Magnesium oxide 400 mg = 241.3 mg elemental magnesium 210 (Given - Provider: Johnny Hernandez) 0818 (Given - Provider: Hannah Dumont, NICOL) metoprolol XL (TOPROL-XL) extended release tablet 50 mg 50 mg, oral, Daily, First dose on Tue06/28/24 at 1600, Hold if heart rate less than 60 beats per minute or systolic blood pressure less than 90 mm Hg Tablets that are scored may be split, but do not crush, chew, dissolve, open or otherwise manipulate tablet/capsule. 1940 (Given - Provider: Easton Damico RN) 0818 (Given - Provider: Hannah Dumont, NICOL) rosuvastatin (CRESTOR) tablet 40 mg 40 mg, oral, Daily, First dose on Tue06/28/24 at 1600, On hold since Tue06/28/2024 at 1519 until manually unheld 151 (Held by Provider - Provider: Walter Dutton MD - Reason: Hold for Procedure)1600 (Dose Auto Held) 0900 (Not Given - Provider: Hannah Dumont, RN - Reason: See Provider Order)1529 (Unheld by Provider - Provider: Automatic Discharge Provider) Continuous Medication Order 06/27/2024 06/28/2024 06/29/2024 Lactated Ringer's (LR) infusion 30 mL/hr, intravenous, Continuous, Starting on Tue06/28/24 at 0730, Pre-Op 0806 (New Bag - Provider: Brandon Shoemaker CRNA)1040 (Anesthesia Volume Adjustment - Provider: Jonathan Shoemaker CRNA)1115 (Continued from OR - Provider: April Avalos)1306 (Stopped - Provider: April Avalos)1930 (Stopped - Provider: Johnny Hernandez - Comment: LR not infusing at shift change. Informed by Dr. Dutton to remove patient's IV per pt request.) PRN Medication Order 06/27/2024 06/28/2024 06/29/2024 BUPivacaine (MARCAINE) 0.25 % (2.5 mg/mL) preservative free injection (CANCELED) Code/trauma/sedation medication, Starting on Elissa 06/28/24 at 0842, Intra-Procedure (CV) 0842 (Given - Provider: Walter Dutton MD) BUPivacaine (MARCAINE) 0.25 % (2.5 mg/mL) preservative free injection (CANCELED) Code/trauma/sedation medication, Starting on Elissa 06/28/24 at 0842, Intra-Procedure (CV) 0842 (Given - Provider: Walter Dutton MD) Carrier Fluids for Secondary Infusion - 0.9% Sodium Chloride 30 mL, intravenous, As needed, For priming tubing and/or flushing, Starting on Elissa 06/28/24 at 0649, Pre-Procedure (CV), 0-250 ml/hr to flush line after IV infusions when no maintenance IV ordered. Infuse 30mL at the same rate as the secondary infusion. Run as primary IV, not intended for KVO. 1051 (MAR Hold - Provider: Automatic Transfer Provider - Reason: Patient not available)1433 (DEC Unhold - Provider: Automatic Transfer Provider) Carrier Fluids for Secondary Infusion - 0.9% Sodium Chloride 30 mL, intravenous, As needed, For priming tubing and/or flushing, Starting on Elissa 06/28/24 at 1256, Recovery (CV), 0-250 ml/hr to flush line after IV infusions when no maintenance IV ordered. Infuse 30mL at the same rate as the secondary infusion. Run as primary IV, not intended for KVO. 1306 (Given - Provider: Shabnam Avalos) heparin in 0.9% sodium chloride 1,000 units/500 mL (2 unit/mL) infusion (premix) (CANCELED) Code/trauma/sedation medication, Starting on Elissa 06/28/24 at 0814, Intra-Procedure (CV) 0814 (Given - Provider: Walter Dutton MD)0848 (Given - Provider: Walter Dutton MD) HYDROmorphone (DILAUDID) injection 0.5 mg 0.5 mg, intravenous, Administer over 2 Minutes, Every 3 hours PRN, 1st line for pain, Starting on Elissa 06/28/24 at 1116, For 20 hours, Of beer of hallucinations to codeine sodium chloride 0.9% flush 0.5-20 mL 0.5-20 mL, intra-catheter, As needed, line care, Starting on Elissa 06/28/24 at 0649, Pre-Procedure (CV), Flush volume based on line type and size. Flush before and after each use. 1051 (DEC Hold - Provider: Automatic Transfer Provider - Reason: Patient not available)1433 (DEC Unhold - Provider: Automatic Transfer Provider) sodium chloride 0.9% solution (CANCELED) Code/trauma/sedation medication, Starting on Elissa 06/28/24 at 0814, Intra-Procedure (CV) 0814 (Given - Provider: Walter Dutton MD - Comment: 1000u heparin added for ablation catheter) documented in this encounter Orders Medications Ordered That Gilson ht Not Have Been Administered Count Last Ordered Date First Ordered Date acetaminophen (TYLENOL) tablet 500 mg Carrier Fluids for Secondary Infusion - 0.9% Sodium Chloride 2 06/28/2024 fentaNYL (SUBLIMAZE) preserv ative free injection 25 mcg 1 06/28/2024 fentaNYL (SUBLIMAZE) preserv ative free injection 50 mcg 2 06/28/2024 HYDROmorphone (DILAUDID) injection 0.5 mg 06/28/2024 irbesartan (AVAPRO) tablet 300 mg 1 024 Lactated Ringer's (LR) infusion 1 meperidine (DEMEROL) preserv ative free injection 12.5 mg 06/28/2024 naloxone (NARCAN) 0.4 mg/mL injection 0.04-0.4 mg 1 06/28/2024 ondansetron (ZOFRAN) injection 4 mg 06/28 propafenone (RYTHMOL) tablet 150 mg 06/28 rosuvastatin (CRESTOR) tablet 40 mg 1 06/28 sodium chloride 0.9% flush 0.5-20 mL 3 06/04 Nursing Count Last Ordered Date First Orde red Date TELEMETRY MONITORING 1 06/28/2024 Admission Count Last Ordered Date First Orde red Date INITIATE OBSERVATION SERVICES 1 06/28/2024 Discharge Count Last Ordered Date First Orde red Date DISCHARGE PATIENT 1 06/29/2024 CORE MEASURES Count Last Ordered Date First Ord ered Date REASON FOR NO VTE PROPHYLAXI S - HOSPITAL ADMISSION - MEDICATIONS 1 06/28/2024 documented in this encounter Care Teams Hand Alterations Tailor Relationship Specialty Start Date End Date Giulia Kirkpatrick MD [address] [address] PCP - General Family Medicine 07/24/22 documented as of this encounter
--- OUTSIDE RECORDS SUMMARY | 2024-10-07 14:24 | XMS_ITS | Encounter Summary ---
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 96.4 fL [facility] MCH 32.2 27.1 - 33.3 pg [facility] MCHC 34.5 32.3 - 35.7 g/dL [facility] RDW CV 12.3 11.1 - 14.9 % [facility] RDW SD 42.9 35.7 - 48.1 fL [facility] NRBC abs 0.00 0.00 - 0.01 K/cumm [facility] Blood (Blood, Venous) 07/25/2022 11:03 PM CDT 07/25/2022 11:11 PM CDT us Sage Driscoll MD LAB BLOOD ORDERABLES Fin al Result [facility] Department [place] [address] documented in this encounter Visit Diagnoses Diagnosis Left-sided back pain, unspecified back location, unspecified chronicity- Primary documented in this encounter Administered Medications Inactive Administered Medications - up to 3 most recent administrations Medication Order MAR Action Action Date Dose Rate Site cyclobenzaprine (FLEXERIL) tablet 5 mg 5 mg, oral, 3 times daily, First dose on Tue07/26/22 at 0525 Given 07/26/2022 5:28 AM CDT 5 mg ketorolac (TORADOL) 15 mg/mL injection 15 mg 15 mg, intravenous, Once, On 07/25/22 at 2313, For 1 dose, For Adult IV push, administer over 15 seconds Given 07/25/2022 11:16 PM CDT 15 mg lidocaine (LIDODERM) 5 % patch 1 patch 1 patch, transdermal, Administer over 12 Hours, Daily, First dose (after last modification) on Tue07/26/22 at 0325, Do not cover the holes on the top side of the patch., Apply to affected area: back Medication Applied 07/26/2022 3:34 AM CDT 1 patch Back morphine injection 6 mg 6 mg, intravenous, Administer over 4 Minutes, Once, On 07/25/22 at 2313, For 1 dose Given 07/25/2022 11:16 PM CDT 6 mg morphine injection 6 mg 6 mg, intravenous, Administer over 4 Minutes, Once, On Tue07/26/22 at 0245, For 1 dose Given 07/26/2022 2:52 AM CDT 6 mg ondansetron (ZOFRAN) injection 4 mg 4 mg, intravenous, Administer over 2 Minutes, Once as needed, nausea, vomiting, If patient unable to tolerate PO, Starting on Tue07/25/22 at 2259, For 1 dose, Do not administer if patient had 8mg administered within 6 hours of patient presenting to ED Do not administer if patient was formally diagnosed with prolonged QT syndrome Given 07/25/2022 11:16 PM CDT 4 mg ondansetron ODT (ZOFRAN-ODT) disintegrating tablet 4 mg 4 mg, oral, Once as needed, nausea, vomiting, If able to tolerate PO, Starting on 07/25/22 at 2259, For 1 dose, Do not administer if patient had 8mg administered within 6 hours of patient presenting to ED Do not administer if patient was formally diagnosed with prolonged QT syndrome sodium chloride 0.9% bolus 1,000 mL 1,000 mL, intravenous, Once, On Tue07/26/22 at 0245, For 1 dose New Bag 07/26/2022 2:53 AM CDT 1,000 mL documented in this encounter Active and Recently Administered Medications Times are shown in CDT. Scheduled Medication Order 07/24/2022 07/25/2022 07/26/2022 cyclobenzaprine (FLEXERIL) tablet 5 mg 5 mg, oral, 3 times daily, First dose on Tue07/26/22 at 0525 0528 (Given - Provid er: Delaney García RN) ketorolac (TORADOL) 15 mg/mL injection 15 mg (COMPLETED) 15 mg, intravenous, Once, On 07/25/22 at 2313, For 1 dose, For Adult IV push, administer over 15 seconds 2316 (Given - Provider: Antionette Dumont RN) lidocaine (LIDODERM) 5 % patch 1 patch 1 patch, transdermal, Administer over 12 Hours, Daily, First dose (after last modification) on Tue07/26/22 at 0325, Do not cover the holes on the top side of the patch., Apply to affected area: back 0334 (Medication Johana lied - Provider: Delaney García RN)0712 (Due: Medication Removed - Provider: Automatic Discharge Provider - Comment: Time automatically adjusted from order being discontinued) morphine injection 6 mg (COMPLETED) 6 mg, intravenous, Administer over 4 Minutes, Once, On 07/25/22 at 2313, For 1 dose 2316 (Given - Provider: Antionette Dumont RN) morphine injection 6 mg (COMPLETED) 6 mg, intravenous, Administer over 4 Minutes, Once, On Tue07/26/22 at 0245, For 1 dose 0252 (Given - Provid er: Delaney García RN) sodium chloride 0.9% bolus 1,000 mL (COMPLETED) 1,000 mL, intravenous, Once, On 07/26/22 at 0245, For 1 dose 0253 (New Bag - Prov ider: Delaney García RN)0529 (Stopped - Provider: Delaney García RN) PRN Medication Order 07/24/2022 07/25/2022 07/26/2022 ondansetron (ZOFRAN) injection 4 mg (COMPLETED) 4 mg, intravenous, Administer over 2 Minutes, Once as needed, nausea, vomiting, If patient unable to tolerate PO, Starting on 07/25/22 at 2259, For 1 dose, Do not administer if patient had 8mg administered within 6 hours of patient presenting to ED Do not administer if patient was formally diagnosed with prolonged QT syndrome 2316 (Given - Provider: Antionette Dumont RN) ondansetron ODT (ZOFRAN-ODT) disintegrating tablet 4 mg 4 mg, oral, Once as needed, nausea, vomiting, If able to tolerate PO, Starting on 07/25/22 at 2259, For 1 dose, Do not administer if patient had 8mg administered within 6 hours of patient presenting to ED Do not administer if patient was formally diagnosed with prolonged QT syndrome documented in this encounter Orders Medications Ordered That Gilson ht Not Have Been Administered Count Last Ordered Date First Ordered Date lidocaine (LIDODERM) 5 % patch 1 patch 1 ondansetron ODT (ZOFRAN-ODT) disintegrating tablet 4 mg 1 07/25/2022 Nursing Count Last Ordered Date First Orde red Date MISCELLANEOUS NURSING CARE ORDER (SPECIFY) 2 07/25/2022 IV Count Last Ordered Date First Orde red Date SALINE LOCK IV 1 07/25/2022 documented in this encounter Care Teams Potato Picker Relationship Specialty Start Date End Date Giulia Kirkpatrick MD [address] [place] [address] DR AUGUSTE [address] [place] [id number] PCP - General Family Medicine 07/24/22 documented as of this encounter
--- OUTSIDE RECORDS SUMMARY | 2024-10-07 14:24 | XMS_ITS | Encounter Summary ---
Author Organization [facility] Healthcare Address [address] [place] [address] Care Team Providers Care Equipment Coordinator Name Role Phone Giulia Kirkpatrick MD Primary Care Provider + Reason for Visit * Auth/Cert (Routine) Specialty Diagnoses / Procedures Referred By Contac t Referred To Contact Diagnoses V-tach (HCC) V-tach (HCC) [I47.20] Procedures ABLATION VENTRICULAR TACHYCARDIA (VT) INCLUDES 3D MAPPING (WHEN USED) [address] Referral ID Status Reason Start Date Expiration Date Visits Re quested Visits Authorized [id number] 1 1 Encounter Details Date Type Department Care Team (Late st Contact Info) Description 06/28/2024 8:07 AM CDT Anesthesia Event [facility] Electrophysiology Lab [address] [place] [address] Toya Adler MD PhD [address] [facility] [address] [place] [address] Abby Guerrero MD [address] [place], [place] [id number] Anesthesia Record Procedure Summary Procedure Name Responsible Anesthesiologist Anesthesia Start Time Anesthesia Stop Time ABLATION VENTRICULAR TACHYCARDIA (VT) INCLUDES 3D MAPPING (WHEN USED) [id number] Toya Adler MD PhD 06/28/24 0807 06/28/24 [...] filed. 1107 An Stop 1154 Release from care Meds Name Total midazolam 2 mg fentaNYL 100 mcg propofol 1,230.9 mg rocuronium 50 mg ondansetron 4 mg dexAMETHasone 4 mg/mL 8 mg phenylephrine (SONU-SYNEPHRIN E) 25,000 mcg in sodium chloride 0.9% 250 mL (100 mcg/mL) infusion 2.01 mg ceFAZolin 2,000 mg heparin 1,000 unit/ml 10,000 Units adenosine 24 mg sugammadex 200 mg protamine 25 mg Lactated Ringer's (LR) infusion 500 mL LR 500 mL * Agents Name O2 N2O Air Sevoflurane Inspired Sevoflurane * Blood No blood administrations on file. [...] Cath Tip Cultured: No 06/28/24 0954 by Sharita Burgos RN 06/28/24 1046 by Aubrey, Sharita Anahy, RN documented in this encounter Social History Tobacco Use Types Packs/Day Years Used Date Smoking Tobacco: Former Cigarettes Vaping Comments:Former smoker, andreia isaacly vapes AUDIT-C Answer Date Recorded Q1: How [...] on file Legal Sex Female 6:04 AM [employer] Gender Identity Not on file Sexual Orientation Not on file documented as of this encounter OR Notes * Anesthesia Postprocedure Evaluation - Kassie Ernst DO - 06/28/2024 11:54 AM CDT Patient: Nora Allison PALMA Procedure Summary Date: 06/28/24 Room / Location: EP LAB 3 / EP LAB Anesthesia Start: 806 Anesthesia Stop: 1106 Procedure: ABLATION VENTRICULAR TACHYCARDIA (VT) INCLUDES 3D MAPPING (WHEN USED) [address] Diagnosis: V-tach (HCC) (V-tach (HCC) [I47.20]) Providers: Walter Dutton MD Responsible Provider: Toya Adler MD PhD Anesthesia Type: general ASA Status: 3 Anesthesia Type: general Last vitals BP 122/61 Pulse 57 Temp 36.2 ??C (97.2 ??F) (Temporal) Resp 14 SpO2 100% Anesthesia Post Evaluation Patient location during evaluation: PACU Patient participation: complete - patient participated Level of consciousness: fully awake Pain score: 1 Pain management: adequate Airway patency: adequate Evidence of recall: no Cardiovascular status: acceptable Respiratory status: acceptable Hydration status: acceptable Pt is: normothermic Nausea/Vomiting status: none No notable events documented. * Anesthesia Procedure Notes - Jonathan Shoemaker CRNA - 06/28/2024 9:45 AM CDTAssociated Order(s): Airway Airway Patient location: OR Urgency: elective Indications for airway management: anesthesia Difficult airway: no Staff: Placed by: CECILE: Jonathan Shoemaker CRNA Emergent airway documentation: Risks and benefits discussed: yes Consent obtained: yes Consent given by: patient Airway prep: Preoxygenated: yes Patient position: sniffing MILS maintained throughout: yes Mask difficulty assessment: 1 - vent by mask Spontaneous ventilation during airway: present Sedation level during airway: GA Final airway details: Final airway type: endotracheal airway Tube type: ETT ETT size: 7.0 mm Technique used for successful ETT placement: video laryngoscopy Insertion site: oral Blade type: Delgado Video blade type: Garber Blade size: 4 Cormack-Lehane (video): grade I - full view of glottis ETT to lips: 21 cm Placement verified by: CO2 detection Airway secured with: silk tape Number of attempts: 1 Ventilation between attempts: BVMno * Anesthesia Preprocedure Evaluation - Kolton Galeas MD - 06/19/2024 9:03 AM CDT Images from the original note were not included. Anesthesia Evaluation Nora PALMA is a 44 y.o. female ABLATION VENTRICULAR TACHYCARDIA (VT) INCLUDES 3D MAPPING (WHEN USED) [address] Pre-Op Diagnosis Codes: * V-tach ([facility]) [I47.20] HISTORY HPI Nora Palma is a 44 yo F with PMH of HTN, HLD, MVP, anxiety, depression, Afib and other V-tach arrhythmia being evaluated for a planned ABLATION VENTRICULAR TACHYCARDIA. Pt reports hx of low BP and HR, Delayed emergence from general anesthesia, and some nausea. No past medical history of Malignant hyperthermia, Motion sickness, or Sleep apnea. Past Medical History Information obtained from: patient and chart. Information obtained during: In Person Neurological + Psychiatric history - depression and anxiety Pertinent negatives: seizures and CVA/stroke Cardiovascular + Hypertension + Hyperlipidemia + Current valvular disease (MVP) - + Atrial fibrillation/flutter - + Other arrhythmia - non-sustained V-tach. Pertinent negatives: CAD ; [place] and DVT/PE Comments: Electrocution at age 16 Respiratory + Current smoker (Former cig smoker - quit 2022; +Vapes) - Counseled to abstain from smoking the day of surgery. Sleep apnea: +snoring; Sleep study was borderline. Hepatic / Heme + History of anemia - iron deficiency Gastrointestinal Comments: IBS Renal / + Nephrolithiasis Musculoskeletal/Pain + Chronic pain - back pain. + Chronic opioid use (Vicodin) - less than daily. + Osteoarthritis Comments: Scoliosis Endocrine / Other Endocrine/Other system: negative Functional Capacity Functional capacity: 4-6 METs Functional capacity limited by a non-cardiovascular, non-pulmonary condition. Review of Systems + SOB (with extertion) + palpitations + pedal edema + previous transfusion + syncope + dizziness + chronic pain + numbness/tingling + hard of hearing (Right ear) + vision loss (+glasses) + chipped/loose teeth (+missing) Pertinent negatives: chest pain; orthopnea; PND; dysphagia; dentures/partials and abdominal pain PAT Summary and Plans Anesthesia plan discussed: general anesthesia. Patient Active Problem List Diagnosis Date Noted Palpitations 05/07/2024 V-tach (HCC) 05/04/2024 Depressive disorder 01/08/2022 Mitral valve prolapse 01/08/2022 Scoliosis deformity of spine 01/08/2022 Anxiety disorder 02/20/2010 Obesity 02/20/2010 Tobacco dependence syndrome 02/20/2010 Past Medical History: Diagnosis Date Anxiety Atrial fibrillation (CMS/HCC) ([facility]) Chronic back pain Delayed emergence from general [...] at 16 years old HYSTERECTOMY ORAL SURGERY OB History No obstetric history on file. Allergies Allergen Reactions Codeine Hallucinations Med List Status: Nurse Complete Set By: Valentina Cain RN at 06/28/2024 6:31 AM Taking? Last Dose Start Date End Date Provider flecainide (TAMBOCOR) 50 mg tablet 06/25/2024 -- -- Lisa Braun MD irbesartan (AVAPRO) 300 mg tablet 06/27/2024 -- -- Lisa Braun MD magnesium oxide (MAG-OX) 400 mg (241.3 mg elemental magnesium) tablet 06/25/2024 05/18/24 -- Lisa Braun MD metoprolol XL (TOPROL-XL) 50 mg extended release tablet 06/25/2024 -- -- Lisa Braun MD rosuvastatin (CRESTOR) 40 mg tablet 06/25/2024 05/16/24 -- Lisa Braun MD Current Facility-Administered Medications: acetaminophen (TYLENOL) tablet 500 mg, 500 mg, oral, Once Carrier Fluids for Secondary Infusion - 0.9% Sodium Chloride, 30 mL, intravenous, PRN Carrier Fluids for Secondary Infusion - 0.9% Sodium Chloride, 30 mL, intravenous, PRN Lactated Ringer's (LR) infusion, 30 mL/hr, intravenous, Continuous sodium chloride 0.9% flush 0.5-20 mL, 0.5-20 mL, intra-catheter, Q8H MITZY sodium chloride 0.9% flush 0.5-20 mL, 0.5-20 mL, intra-catheter, PRN sodium chloride 0.9% flush 0.5-20 mL, 0.5-20 mL, intra-catheter, PRN Social History Tobacco Use Smoking Status Former Types: Cigarettes, Vaping Smokeless Tobacco Not on file Tobacco Comments Former smoker, currently vapes Alcohol Use: Not At Risk (06/28/2024) AUDIT-C Frequency of Alcohol Consumption: Monthly or less Average Number of Drinks: 1 or 2 Frequency of Binge Drinking: Never Substance and Sexual Activity Drug Use Yes Types: Marijuana Comment: occasional marijuana Family History Problem Relation Age of Onset COPD Mother Hypertension Mother Stroke Father Diabetes Father Heart disease Father PAT Physical Exam Airway Exam: Mallampati: II Cervical ROM: FROM Cardiovascular Exam: Rate: regular Rhythm: regular Pulmonary Exam: LCTA, bilat EENT Exam: trachea midline Dental Exam: Missing and otherwise appears intact Skin Exam: Skin is warm and dry. Current state: Patient's current state is cooperative and interactive. Vitals: 06/28/24 0628 BP: 142/76 Pulse: 68 Resp: 19 Temp: 36.9 ??C (98.5 ??F) SpO2: 98% EKG 03/27/2024: SINUS BRADYCARDIA WITH SINUS ARRHYTHMIA No previous ECG available for comparison PT: No results found for requested labs within last 30 days. INR: No results found for requested labs within last 30 days. APTT: No results found for requested labs within last 30 days. Hgb A1C: No results found for requested labs within last 30 days. CBC RBC: 06/19/2024: 4.19 M/cumm RDW: No results found for requested labs within last 30 days. MCHC: 06/19/2024: 33.8 g/dL MCH: 06/19/2024: 32.2 pg MCV: 06/19/2024: 95.2 fL Hct: 06/19/2024: 39.9 % Hgb: 06/19/2024: 13.5 g/dL WBC: 06/19/2024: 8.5 K/cumm MPV: 06/19/2024: 9.1 fL Platelets: 06/19/2024: 237 K/cumm RDW CV: 06/19/2024: 12.3 % RDW Sd: 06/19/2024: 43.2 fL BMP Glucose: 06/19/2024: 113 mg/dL Calcium: 06/19/2024: 9.0 mg/dL Sodium: 06/19/2024: 142 mmol/L Potassium: 06/19/2024: 4.3 mmol/L CO2: 06/19/2024: 23 mmol/L Chloride: 06/19/2024: 109 mmol/L BUN: 06/19/2024: 17 mg/dL Creatinine: 06/19/2024: 0.96 mg/dL STOP-Bang Total Score: 3 DOS Physical Exam Medical history, medications, and allergies reviewed. Attestation: This PAT evaluation 06/28/2024. Airway Exam: Mallampati: II Cervical ROM: FROM TM distance: >4 Cardiovascular Exam: Rate: regular Rhythm: regular Pulmonary Exam: LCTA, bilat EENT Exam: trachea midline Dental Exam: Missing Current state: Patient's current state is cooperative. Anesthesia Plan ASA 3 My patient is approved for the Anesthesia Controlled Medication protocol when under care of a TIRE GROOVER Planned anesthesia: General Team communication plan: oral ET tube Induction: Induction: intravenous and inhalational. Postoperative Plan: Postoperative administration opioids intended. Patient's planned disposition post procedure is 23 hour admit. Informed Consent: Discussed plan with AA, attending and TIRE GROOVER. Anesthesia plan and risks discussed with patient and spouse. Plan and Consent Comments: Pt reports hx of low BP and HR, Delayed emergence from general anesthesia, and some nausea. Consent and Attending signature: I and/or my designee have discussed the anesthesia plan, benefits, possible alternatives, parental presence at time of induction (if indicated), and clinically relevant risks that may include dental injury, unintentional awareness, and/or other complications. The patient and/or parent/legal guardian understand, and agree to proceed. All questions answered. documented in this encounter Plan of Treatment Not on file documented as of this encounter Procedures Procedure Name Priority Date/Time Associated Diagnosis Comments IA AN ELECTIVE ENDOTRACHEAL AIRWAY Routine 06/28/2024 9:45 AM CDT documented in this encounter Results * IA AN ELECTIVE ENDOTRACHEAL AIRWAY (06/28/2024 9:45 AM CDT) Narrative Jonathan Shoemaker CRNA - 06/28/2024 9:45 AM CDT Jonathan Shoemaker CRNA ? 06/28/2024 ??9:56 AM Airway Patient location: OR Urgency: elective Indications for airway management: anesthesia Difficult airway: no Staff: Placed by: TIRE GROOVER: Jonathan Shoemaker CRNA Emergent airway documentation: Risks and benefits discussed: yes Consent obtained: yes Consent given by: patient Airway prep: Preoxygenated: yes Patient position: sniffing MILS maintained throughout: yes Mask difficulty assessment: 1 - vent by mask Spontaneous ventilation during airway: present Sedation level during airway: GA Final airway details: Final airway type: endotracheal airway Tube type: ETT ETT size: 7.0 mm Technique used for successful ETT placement: video laryngoscopy Insertion site: oral Blade type: Delgado Video blade type: Garber Blade size: 4 Cormack-Lehane (video): grade I - full view of glottis ETT to lips: 21 cm Placement verified by: CO2 detection Airway secured with: silk tape Number of attempts: 1 Ventilation between attempts: BVMno us Toya Adler MD PhD ANESTHESIA ORDERABLES Edited Result - Final documented in this encounter Visit Diagnoses Not on filedocumented in this encounter Administered Medications Inactive Administered Medications - up to 3 most recent administrations Medication Order MAR Action Action Date Dose Rate Site adenosine (ADENOCARD) 3 mg/mL injection intravenous, As needed, Starting on Elissa 06/28/24 at 0935, Anesthesia Intra-op Given 06/28/2024 9:35 AM CDT 24 mg ceFAZolin (ANCEF) injection intravenous, Administer over 3 Minutes, As needed, Starting on Elissa 06/28/24 at 0823, Anesthesia Intra-op Given 06/28/2024 8:23 AM CDT 2,000 mg dexAMETHasone (DECADRON) 4 mg/mL injection intravenous, Administer over 2 Minutes, As needed, Starting on Elissa 06/28/24 at 0821, Anesthesia Intra-op Given 06/28/2024 8:21 AM CDT 8 mg fentaNYL (SUBLIMAZE) preservative free injection intravenous, As needed, Starting on Elissa 06/28/24 at 0810, Anesthesia Intra-op Given 06/28/2024 8:10 AM CDT 100 mcg heparin 1,000 unit/mL injection intravenous, As needed, Starting on Elissa 06/28/24 at 0841, Anesthesia Intra-op Given 06/28/2024 9:54 AM CDT 5,000 Units Given 06/28/2024 8:41 AM CDT 5,000 Units Lactated Ringer's (LR) infusion 30 mL/hr, intravenous, Continuous, Starting on Elissa 06/28/24 at 0730, Pre-Op New Bag 06/28/2024 8:06 AM CDT 50 mL/hr Lactated Ringer's (LR) infusion intravenous, Continuous PRN, Starting on Elissa 06/28/24 at 0820, Anesthesia Intra-op New Bag 06/28/2024 8:20 AM CDT 50 mL/hr midazolam (VERSED) 1 mg/mL preservative free injection intravenous, Administer over 2 Minutes, As needed, Starting on Elissa 06/28/24 at 0810, Anesthesia Intra-op Given 06/28/2024 8:10 AM CDT 2 mg ondansetron (ZOFRAN) injection intravenous, Administer over 2 Minutes, As needed, Starting on Elissa 06/28/24 at 0819, Anesthesia Intra-op Given 06/28/2024 8:19 AM CDT 4 mg phenylephrine (SONU-SYNEPHRINE) 25,000 mcg in sodium chloride 0.9% 250 mL (100 mcg/mL) infusion intravenous, Continuous PRN, Starting on Elissa 06/28/24 at 0837, Anesthesia Intra-op Rate/Dose Change 06/28/2024 9:31 AM CDT 0.2 mcg/kg/min 10.32 mL/hr Rate/Dose Change 06/28/2024 8:49 AM CDT 0.4 mcg/kg/min 20. 64 mL/hr New Bag 06/28/2024 8:37 AM CDT 0.2 mcg/kg/min 10.32 mL/ hr propofoL (DIPRIVAN) 10 mg/mL IV intravenous, Continuous PRN, Starting on Elissa 06/28/24 at 0815, Anesthesia Intra-op Rate/Dose Change 06/28/2024 9:55 AM CDT 125 mcg/kg/min 64.5 mL/hr Given 06/28/2024 9:29 AM CDT 100 mg Rate/Dose Change 06/28/2024 8:35 AM CDT 75 mcg/kg/min 38.7 mL/hr protamine injection intravenous, As needed, Starting on Elissa 06/28/24 at 1025, Anesthesia Intra-op, Indications: Heparin ToxicityIndications:Heparin Toxicity Given 06/28/2024 10:32 AM CDT 20 mg Given 06/28/2024 10:25 AM CDT 5 mg rocuronium (ZEMURON) injection intravenous, As needed, Starting on Elissa 06/28/24 at 0941, Anesthesia Intra-op Given 06/28/2024 9:30 AM CDT 50 mg sugammadex (BRIDION) 100 mg/mL intravenous solution intravenous, As needed, Starting on Elissa 06/28/24 at 1041, Anesthesia Intra-op Given 06/28/2024 10:41 AM CDT 200 mg documented in this encounter Care Teams Equipment Coordinator Relationship Specialty Start Date End Date Giulia Kirkpatrick MD [address] [address] PCP - General Family Medicine 07/24/22 documented as of this encounter
--- OUTSIDE RECORDS SUMMARY | 2024-10-07 14:24 | XMS_ITS | Encounter Summary ---
Author Organization [facility] Healthcare Address [address] [place] [address] Care Team Providers Care Fish Egg Packer Name Role Phone Giulia Kirkpatrick MD Primary Care Provider + Encounter Details Date Type Department Care Team (Late st Contact Info) Description 05/04/2024 Orders Only [facility] Cardiac Catheterization Lab [address] [place] [address] Walter Dutton MD [address] [place], [place] [id number] V-tach (HCC) (Primary Dx) Social History Tobacco Use Types Packs/Day Years Used Date Smoking Tobacco: Never Assessed Personal Safety Answer Date Recorded Getting School Help Needed Not on file 12/16 Comments No Sex and Gender Information Value Date Recorded Sex Assigned at Not on file 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 Gender Identity Not on file Sexual Orientation Not on file documented as of this encounter Plan of Treatment Not on file documented as of this encounter Visit Diagnoses Diagnosis V-tach (HCC)- Primary Paroxysmal ventricular tachycardia documented in this encounter Orders Case Request Count Last Ordered Date First Orde red Date CASE REQUEST TELEVISION AND RADIO REPAIRER 1 05/04/2024 documented in this encounter Care Teams Fish Egg Packer Relationship Specialty Start Date End Date Giulia Kirkpatrick MD [address] [place] [id number] PCP - General Family Medicine 07/24/22 documented as of this encounter
--- OUTSIDE RECORDS SUMMARY | 2024-10-07 14:24 | XMS_ITS | Referral Summary ---
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
--- OUTSIDE RECORDS SUMMARY | 2024-10-07 14:24 | XMS_ITS | Encounter Summary ---
Author Organization [facility] Healthcare Address [address] [place] [address] Care Team Providers Care Crystal Calibrator Name Role Phone Giulia Kirkpatrick MD Primary Care Provider + Reason for Visit * Auth/Cert (Routine) Specialty Diagnoses / Procedures Referred By Contac t Referred To Contact Diagnoses V-tach (HCC) V-tach (HCC) [I47.20] Procedures ABLATION VENTRICULAR TACHYCARDIA (VT) INCLUDES 3D MAPPING (WHEN USED) 67146 Referral ID Status Reason Start Date Expiration Date Visits Re quested Visits Authorized [id number] 1 1 Encounter Details Date Type Department Care Team (Latest Contact Info) Description 06/28/2024 6:05 AM CDT - 06/29/2024 11:28 AM CDT Hospital Encounter [facility] [address] [place] [address] Walter Dutton MD [address] [place] [address] V-tach (HCC) Discharge Disposition: Discharge to home or self [...] on file 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 Gender Identity Not on file Sexual Orientation [...] Care Physician at Discharge: Giulia Kirkpatrick MD [phone] Admission Date: 06/28/2024 Discharge Date: Admission Location: [facility] Problems/Diagnoses: Principal Problem: V-tach (HCC) Active Problems: [...] - Primary Anesthesiologist: Toya Adler MD PhD RESIDENTIAL WORKER: Jonathan Shoemaker CRNA Anesthesiologist Clipping Marker: Denver Garcia AA Drafting Detailer: Kimberly Wallace RN CV Documenter: Sharita Burgos [...] prematures Procedure(s): Procedure(s) (LRB): ABLATION SUPRAVENTRICULAR TACHYCARDIA 55590 (N/A) INTRACARDIAC ECHOCARDIOGRAM (+) 17197 (N/A) 3D MAPPING OF TACHYCARDIA (+) 21978 (N/A) Ultrasound guidance for venous line placement Details of procedure : After informed consent was obtained patient was brought to cardiac electrophysiology lab at [facility] in [facility] [place] in both [place]ins sterilely prepped and draped in usual fashion The venous access was done under ultrasound fluoroscopy guidance. The access using 8 Greenlandic sheath i was done in right femoral vein and 2 5 Greenlandic sheaths were inserted to the left femoral [...] Ablation Ablation Site: right atrium. System used: ConnectQuest (3D). Catheter inserted successfully. Energy type: radio [...] Goals: 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;comfort Senior Living Patient Centered Goal for Treatment: discharge Summary: [...] - Primary Anesthesiologist: Toya Adler MD PhD RESIDENTIAL WORKER: Jonathan Shoemaker CRNA Anesthesiologist Clipping Marker: Denver Garcia AA Drafting Detailer: Kimberly Wallace RN CV Documenter: Sharita Burgos [...] prematures Procedure(s): Procedure(s) (LRB): ABLATION SUPRAVENTRICULAR TACHYCARDIA 47264 (N/A) INTRACARDIAC ECHOCARDIOGRAM (+) 99541 (N/A) 3D MAPPING OF TACHYCARDIA (+) 08240 (N/A) Ultrasound guidance for venous line placement Details of procedure : After informed consent was obtained patient was brought to cardiac electrophysiology lab at [facility] [place] sterilely prepped and draped in usual fashion The venous access was done under ultrasound fluoroscopy guidance. The access using 8 Greenlandic sheath i was done in right femoral vein and 2 5 Greenlandic sheaths were inserted to the left femoral [...] - Primary Anesthesiologist: Toya Adler MD PhD RESIDENTIAL WORKER: Jonathan Shoemaker CRNA Anesthesiologist Clipping Marker: Denver Garcia AA Drafting Detailer: Kimberly Wallace RN CV Documenter: Sharita Burgos [...] prematures Procedure(s): Procedure(s) (LRB): ABLATION SUPRAVENTRICULAR TACHYCARDIA 00117 (N/A) INTRACARDIAC ECHOCARDIOGRAM (+) 44720 (N/A) 3D MAPPING OF TACHYCARDIA (+) 00883 (N/A) Ultrasound guidance for venous line placement Details of procedure : After informed consent was obtained patient was brought to cardiac electrophysiology lab at [facility] [place] sterilely prepped and draped in usual fashion The venous access was done under ultrasound fluoroscopy guidance. The access using 8 Greenlandic sheath i was done in right femoral vein and 2 5 Greenlandic sheaths were inserted to the left femoral [...] consent. A planning to place 1 8 Greenlandic sheath into the right femoral vein and 2 5 Greenlandic sheaths into the left femoral veins no [...] mg, 500 mg, oral, Once, Rosemary Bauman, VIDEO JOURNALIST Carrier Fluids for Secondary Infusion - 0.9% Sodium Chloride, 30 mL, intravenous, PRN, Walter Dutton MD Carrier Fluids for Secondary Infusion - 0.9% Sodium Chloride, 30 mL, intravenous, PRN, MelitaC. Mitul, VIDEO JOURNALIST Lactated Ringer's (LR) infusion, 30 mL/hr, intravenous, Continuous, Rosemary Bauman, SYLVIA sodium chloride 0.9% flush 0.5-20 mL, 0.5-20 mL, intra-catheter, Q8H Nato FORRESTER Saulius, MD sodium chloride 0.9% flush 0.5-20 mL, 0.5-20 mL, intra-catheter, PRNato Emery Saulius, MD sodium chloride 0.9% flush 0.5-20 mL, 0.5-20 mL, intra-catheter, PRNMitul Melita C., SYLVIA Allergies Allergen Reactions Codeine Hallucinations Social History [...] 379 msec QTC Interval: 406 msec P-R-T [place]: 69 - 42 - 33 degrees IMPRESSION: [...] consent. A planning to place 1 8 Greenlandic sheath into the right femoral vein and 2 5 Greenlandic sheaths into the left femoral veins no [...] consent. A planning to place 1 8 Greenlandic sheath into the right femoral vein and 2 5 Greenlandic sheaths into the left femoral veins no [...] - Primary Anesthesiologist: Toya Adler MD PhD RESIDENTIAL WORKER: Jonathan Shoemaker CRNA Anesthesiologist Clipping Marker: Denver Garcia AA Drafting Detailer: Kimberly Wallace RN CV Documenter: Sharita Burgos [...] prematures Procedure(s): Procedure(s) (LRB): ABLATION SUPRAVENTRICULAR TACHYCARDIA 49808 (N/A) INTRACARDIAC ECHOCARDIOGRAM (+) 30509 (N/A) 3D MAPPING OF TACHYCARDIA (+) 83859 (N/A) Ultrasound guidance for venous line placement Details of procedure : After informed consent was obtained patient was brought to cardiac electrophysiology lab at [facility] in [facility] [place] in both [place]ins sterilely prepped and draped in usual fashion The venous access was done under ultrasound fluoroscopy guidance. The access using 8 Greenlandic sheath i was done in right femoral vein and 2 5 Greenlandic sheaths were inserted to the left femoral [...] Ablation Ablation Site: right atrium. System used: ConnectQuest (3D). Catheter inserted successfully. Energy type: radio [...] train Patient tolerated procedure well no complications Walter Dutton MD CV ELECTROPHYSIOLOGY PROCS Final Result * (ABNORMAL) POC Activated Clotting Time, High [place] (06/28/2024 10:20 AM CDT) ACT 184(H) 87 - 138 sec Blood 06/28/2024 10:2 0 AM CDT 06/28/2024 10:20 AM CDT Walter Dutton MD LAB BLOOD ORDERABLES Final Result EVIN [address] [address] Department [place] [address] * POC Activated Clotting Time, High Range (06/28/2024 8:47 AM CDT) ACT 93 87 - 138 sec Blood 06/28/2024 8:47 AM CDT 06/28/2024 8:47 AM CDT Walter Dutton MD LAB BLOOD ORDERABLES Final Result EVIN ARIAS [address] [address] Department [place] [address] documented in this encounter Visit Diagnoses Diagnosis [...] Given 06/28/2024 9:05 PM CDT 5 mg Carrier Fluids for Secondary Infusion - [...] Given 06/28/2024 9:05 PM CDT 50 mg Lactated Ringer's (LR) infusion 30 mL/hr, intravenous, [...] size. Flush before and after each use. documented in this encounter Active and Recently [...] First dose on Elissa 06/28/24 at 2100 2104 (Given - Provider: Johnny Hernandez) 817 (Given - Provider: Hannah Dumont, NICOL) irbesartan (AVAPRO) tablet 300 mg 300 mg, oral, Daily, First dose on Tue06/28/24 at 1600, On hold since Tue06/28/2024 at 1519 until manually unheld 151 (Held by Provider - Provider: Walter Dutton MD - Reason: Hold for Procedure)1600 (Dose Auto Held) 0900 (Not Given - Provider: Hannah Dumont RN - Reason: See Provider Order)152 (Unheld by Provider - Provider: Automatic Discharge Provider) magnesium oxide (MAG-OX) tablet 400 mg 400 mg, oral, 2 times daily, First dose on Tue06/28/24 at 2100, 1 tablet = Magnesium oxide 400 mg = 241.3 mg elemental magnesium 2104 (Given - Provider: Johnny Hernandez) 817 (Given - Provider: Hannah Dumont RN) metoprolol XL (TOPROL-XL) extended release tablet 50 mg 50 mg, oral, Daily, First dose on Tue06/28/24 at 1600, Hold if heart rate less than 60 beats per minute or systolic blood pressure less than 90 mm Hg Tablets that are scored may be split, but do not crush, chew, dissolve, open or otherwise manipulate tablet/capsule. 1940 (Given - Provider: Easton Damico RN) 817 (Given - Provider: Hannah Dumont, NICOL) rosuvastatin (CRESTOR) tablet 40 mg 40 mg, oral, Daily, First dose on Tue06/28/24 at 1600, On hold since Tue06/28/2024 at 1519 until manually unheld 151 (Held by Provider - Provider: Walter Dutton MD - Reason: Hold for Procedure)1600 (Dose Auto Held) 0900 (Not Given - Provider: Hannah Dumont RN - Reason: See Provider Order)1529 (Unheld by Provider - Provider: Automatic Discharge Provider) Continuous Medication Order 06/27/2024 06/28/2024 06/29/2024 Lactated Ringer's (LR) infusion 30 mL/hr, intravenous, Continuous, Starting on Elissa 06/28/24 at 0730, Pre-Op 0806 (New Bag - [...] Transfer Provider - Reason: Patient not available)1433 (MAR Unhold - Provider: Automatic Transfer Provider) Carrier [...] Ordered Date acetaminophen (TYLENOL) tablet 500 mg 1 BUPivacaine (MARCAINE) 0.25 % (2.5 mg/mL) preservative free injection 2 06/28/2024 Carrier Fluids for Secondary Infusion - 0.9% Sodium Chloride 2 06/28/2024 fentaNYL (SUBLIMAZE) preserv ative free injection 25 mcg 1 06/28/2024 fentaNYL (SUBLIMAZE) preserv ative free injection 50 mcg 2 06/28/2024 heparin in 0.9% sodium chlor annetta 1,000 units/500 mL (2 unit/mL) infusion (premix) 1 06/28/2024 HYDROmorphone (DILAUDID) injection 0.5 mg 1 06/28/2024 irbesartan (AVAPRO) tablet 300 mg 1 024 Lactated Ringer's (LR) infusion 1 meperidine (DEMEROL) preserv ative free injection 12.5 mg 1 06/28/2024 naloxone (NARCAN) 0.4 mg/mL injection 0.04-0.4 mg 1 06/28/2024 ondansetron (ZOFRAN) injection 4 mg 1 06/28 propafenone (RYTHMOL) tablet 150 mg 1 06/28 rosuvastatin (CRESTOR) tablet 40 mg 1 06/28 sodium chloride 0.9% flush 0.5-20 mL 3 06/04 sodium chloride 0.9% solution 1 06/28/2024 Nursing Count Last Ordered Date First Orde [...] 06/28/2024 documented in this encounter Care Teams Crystal Calibrator Relationship Specialty Start Date End Date Giulia Kirkpatrick MD [address] [place] [address] [address] [place] [address] PCP - General Family Medicine 07/24/22 documented as of this encounter
--- OUTSIDE RECORDS SUMMARY | 2024-10-07 14:24 | XMS_ITS | Encounter Summary ---
Author Organization [facility] Healthcare Address [address] [place] [address] Care Team Providers Care Client Associate Name Role Phone Unavailable Primary Care Provider Unavailabl e Encounter Details Date Type Department Care Team (Late st Contact Info) Description 06/27/2015 5:48 PM CDT - 06/27/2015 8:49 PM CDT Hospital Encounter [facility] C[facility]ar Hernandez MD [address] [facility] [address] [place] [address] Essential hypertension; Tobacco use disorder Social History Tobacco Use Types Packs/Day Years Used Date Smoking Tobacco: Never Assessed Comments Unknown Sex and Gender Information Value Date Recorded Sex Assigned at Not on file 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 us Historical Provider ECG ORDERABLES Final Res ult documented in this encounter Visit Diagnoses Diagnosis Essential hypertension Unspecified essential hypertension Tobacco use disorder documented in this encounter
--- OUTSIDE RECORDS SUMMARY | 2024-10-07 14:24 | XMS_ITS | CONTINUITY OF CARE DOCUMENT ---
Author Name ev, ev Address Unknown Organization [facility] Address [address] [place] [address] Phone [phone] Care Team Providers Care Equine Vet Name Role Phone Jaquan Walsh MD Unavailable [phone] ÁLVAREZKENDY ARMENTA Unavailable [phone] ÁLVAREZ KENDY BOWIE Unavailable [phone] PROBLEMS Condition Status Date Provider Notes CAD active Jaquan Walsh MD Valvular heart disease active Jaquan Walsh MD PALPITATIONS-02/09 HOLTER SR 62-148 active ? Rome Donaldson RN MITRAL VALVE PROLAPSE-02/09 E CHO NL EF 57 completed - Jaquan Walsh MD OBESITY active Allen Choi MD ANXIETY DISORDER active Allen Choi MD TOBACCO ABUSE active Allen Choi MD Screening active Jaquan Walsh MD Hypertension benign essential active Vivi Ventimiglia [employer] Nicotine dependence active Vivi Ventimigl ia [employer] Mitral valve prolapse active Vivi Ventimi glia [employer] Palpitations active Vivi Ventimiglia [employer] Ventricular tachycardia, nonsustained active Clive Whaley ENCOUNTERS Date Type Provider Location Encounter Diag nosis - In-person encounter Office Visit Walter Dutton MD [place] [facility] - In-person encounter Office Visit Walter Dutton MD [place] [facility] ScreeningVentricular tachycardia, nonsustained - In-person encounter Office Visit Jaquan Walsh MD [place] [facility] - In-person encounter Office Visit Jaquan Walsh MD [place] [facility] ScreeningHypertension benign essentialNicotine dependenceMitral valve prolapsePalpitations - In-person encounter Office Visit Allen Choi MD [place] [facility] - In-person encounter Office Visit Allen Choi MD [place] [facility] PALPITATIONS-02/09 HOLTER SR 62-148MITRAL VALVE PROLAPSE-02/09 ECHO NL EF 57OBESITYANXIETY DISORDERTOBACCO ABUSE VITAL SIGNS Date Observation Value Provider Body Mass Index (Ratio) 32.09 kg/m2 Zain Dutton MD blood pressure, diastolic 100 mm[Hg] Nita nkLog blood pressure, systolic 168 mm[Hg] Meghan kLog weight E&M 187 [lb_av] Radha Orlando pulse rate 79 /min Radha Orlando respiratory rate E&M 14 /min Radha Orlando oxygen saturation, oximetry 98 % Radha Orlando blood pressure, diastolic 100 mm[Hg] Carolyn Perry blood pressure, systolic 168 mm[Hg] Bibi harmony [place] blood pressure, cuff size regular N[place] marty [place] height E&M 64 [in_i] Radha Orlando Body Mass Index (Ratio) 32.44 kg/m2 Clive Whaley blood pressure, cuff size regular [facility] blood pressure, diastolic 101 mm[Hg] [facility] blood pressure, systolic 152 mm[Hg] [facility] oxygen saturation, oximetry 98 % [facility] respiratory rate E&M 16 /min [facility] pulse rate 97 /min [facility] weight E&M 189 [lb_av] [facility] height E&M 64 [in_i] [facility] Body Mass Index (Ratio) 32.09 kg/m2 Rosario Walsh MD pulse rate 80 /min [facility] blood pressure, cuff size regular [facility] blood pressure, diastolic 78 mm[Hg] [facility] blood pressure, systolic 125 mm[Hg] [facility], oximetry 99 % [facility] respiratory rate E&M 15 /min [facility] weight E&M 187 [lb_av] [facility] height E&M 64 [in_i] [facility] Body Mass Index (Ratio) 32.27 kg/m2 Rosario Walsh MD blood pressure, diastolic 91 mm[Hg] Nita [facility]Logic blood pressure, systolic 170 mm[Hg] Meghan kLog blood pressure, cuff size regular [facility] blood pressure, diastolic 91 mm[Hg] Lew et blood pressure, systolic 170 mm[Hg] Gabrielle medina pulse rate 84 /min [facility] height E&M 64 [in_i] [facility] oxygen saturation, oximetry 100 % [facility] respiratory rate E&M 12 /min [facility] weight E&M 188 [lb_av] Lewis erneto y blood pressure, diastolic 71 mm[Hg] Neto Haley blood pressure, systolic 116 mm[Hg] Elio Haley pulse rate 64 /min Nafisa Haley oxygen saturation, oximetry 98 % Nafisa Haley respiratory rate E&M 16 /min Hugo reeder Haley weight E&M 194 [lb_av] Nafisa Haley blood pressure, diastolic 78 mm[Hg] Neto Haley blood pressure, systolic 139 mm[Hg] Elio tanner Haley pulse rate 100 /min Nafisa Haley oxygen saturation, oximetry 98 % Nafisa Haley respiratory rate E&M 16 /min Hugo reeder Haley weight E&M 192 [lb_av] Nafisa Haley ALLERGIES No Known Drug Allergies RESULTS Date Observation Value Provider Reference Range Interpretation Location 4 activated partial thromboplastin time (aPTT) 25 s [facility] 24-33 4 prothrombin time (patient) 10.5 s [facility] 9.1-12.0 4 international normalized ratio (INR) 1.0 [facility] 0.9-1.2 4 lipoprotein, beta, serum, point, quantitative, calculated 114 mg/dL [facility] 0-99 High 4 HDL cholesterol, serum 65 mg/dL [facility] >39 4 triglyceride, serum, random 68 mg/dL [facility] 0-149 4 cholesterol, serum 192 mg/dL [facility] 330-883 8261/08/1 4 calcium, serum 9.5 mg/dL [facility] 8.7-10.2 4 carbon dioxide, venous blood 23 mmol/L [facility] 20-29 4 chloride, serum 104 mmol/L [facility] 96-106 4 potassium, serum 4.7 mmol/L [facility] 3.5-5.2 4 sodium, serum 140 mmol/L [facility] 720-162 4730/08/1 4 urea nitrogen/creatinine ratio, serum 13 [facility] 9-23 4 creatinine, serum 0.91 mg/dL [facility] 0.57-1.00 4 urea nitrogen, blood 12 mg/dL [facility] 6-24 4 blood glucose, random 92 mg/dL [facility] 70-99 3 basophil count, absolute 0.1 x10E3/uL [facility] 0.0-0.2 3 Eosinophil Absolute Count 0.1 X10E3/UL [facility] 0.0-0.4 3 monocyte count, blood, automated 0.5 X10E3/UL [facility] 0.1-0.9 3 lymphocyte count, blood, automated 1.8 X10E3/UL [facility] 0.7-3.1 3 Absolute Neutrophils 4.4 X10E3/UL [facility] 1.4-7.0 3 basophils as percent of blood leukocytes 1 % [facility] Not Estab. 3 eosinophils as percent of blood leukocytes 1 % [facility] Not Estab. 3 monocytes as percent of blood leukocytes 7 % [facility] Not Estab. 3 lymphocytes as percent of blood leukocytes 26 % [facility] Not Estab. 3 neutrophils as percent of blood leukocytes 65 % [facility] Not Estab. 3 platelet count 264 X10E3/UL [facility] 623-963 9769/08/1 3 red blood cell distribution width 11.7 % [facility] 11.7-15.4 3 mean corpuscular hemoglobin concentration, RBC 33.7 G/DL [facility] 31.5-35.7 3 mean corpuscular hemoglobin, RBC 32.4 pg [facility] 26.6-33.0 3 mean corpuscular volume, RBC 96 fL [facility] 79-97 3 hematocrit, blood 41.5 % [facility] 34.0-46.6 3 hemoglobin, blood 14.0 g/dL [facility] 11.1-15.9 3 erythrocyte (RBC) count 4.32 X10E6/UL [facility] 3.77-5.28 3 leukocyte count, blood 6.8 X10E3/UL [facility] 3.4-10.8 9 c-reactive protein, quantitative, serum 0.68 mg/L [facility] 0.00-3.00 9 microalbumin/creatin ine ratio, urine <4 mg/g creat [facility] 0-29 9 microalbumin, random, urine <3.0 ug/mL [facility] Not Estab. 9 creatinine, random, urine 73.2 mg/dL [facility] Not Estab. 9 free thyroxine index 1.9 [facility] 1.2-4.9 9 triiodothyronine resin uptake 27 % [facility] 24-39 9 thyroxine, serum, total 7.0 ug/dL [facility] 4.5-12.0 9 thyroid stimulating hormone, serum 1.630 u[IU]/mL [facility] 0.450-4.500 9 lipoprotein, beta, serum, point, quantitative, calculated 96 mg/dL [facility] 0-99 9 HDL cholesterol, serum 48 mg/dL [facility] >39 9 triglyceride, serum, random 182 mg/dL [facility] 0-149 High 9 cholesterol, serum 175 mg/dL [facility] 234-373 4556/05/2 7 vitamin D 25-hydroxy, serum 33.1 ng/mL [facility] (32.0-100.0) 1 1,25-calcitrol, serum 50.9 pg/mL [facility] (10.0-75.0) 7 free thyroxine index 1.8 [facility] (1.2-4.9) 7 triiodothyronine resin uptake 27 % [facility] (24-39) 7 thyroxine, serum, total 6.8 ug/dL [facility] (4.5-12.0) 7 thyroid stimulating hormone, serum 1.720 u[IU]/mL [facility] (0.450-4.500) 7 lipoprotein, beta, serum, point, quantitative, calculated 116 mg/dL [facility] (0-99) High 7 very low density lipoproteins 25 mg/dL [facility] (5-40) 7 HDL cholesterol, serum 48 mg/dL [facility] (>39) 7 triglyceride, serum, random 123 mg/dL [facility] (0-149) 7 cholesterol, serum 189 mg/dL [facility] (100-199) 7 basophil count, absolute 0.1 x10E3/uL [facility] (0.0-0.2) 7 Eosinophil Absolute Count 0.2 X10E3/UL [facility] (0.0-0.4) 7 monocyte count, blood, automated 0.6 X10E3/UL [facility] (0.1-1.0) 7 lymphocyte count, blood, automated 2.0 X10E3/UL [facility] (0.7-4.5) 7 Absolute Neutrophils 5.4 X10E3/UL [facility] (1.8-7.8) 7 basophils as percent of blood leukocytes 1 % [facility] (0-3) 7 eosinophils as percent of blood leukocytes 3 % [facility] (0-7) 7 monocytes as percent of blood leukocytes 7 % [facility] (4-13) 7 lymphocytes as percent of blood leukocytes 24 % [facility] (14-46) 7 neutrophils as percent of blood leukocytes 65 % [facility] (40-74) 7 platelet count 272 X10E3/UL [facility] (140-415) 7 red blood cell distribution width 16.4 % [facility] (11.7-15.0) High 7 mean corpuscular hemoglobin concentration, RBC 33.6 G/DL [facility] (32.0-36.0) 7 mean corpuscular hemoglobin, RBC 28.7 pg [facility] (27.0-34.0) 7 mean corpuscular volume, RBC 85 fL [facility] (80-98) 7 hematocrit, blood 36.1 % [facility] (34.0-44.0) 7 hemoglobin, blood 12.1 g/dL [facility] (11.5-15.0) 7 erythrocyte (RBC) count 4.24 X10E6/UL [facility] (3.80-5.10) 7 leukocyte count, blood 8.3 X10E3/UL [facility] (4.0-10.5) 7 alanine aminotransferase (SGPT), serum 16 1/L [facility] (0-40) 7 aspartate aminotransferase (SGOT), serum 16 1/L [facility] (0-40) 7 alkaline phosphatase, serum 70 1/L [facility] (25-150) 7 bilirubin, serum, total 0.3 mg/dL [facility] (0.0-1.2) 7 albumin/globulin ratio, serum 1.9 [facility] (1.1-2.5) 7 globulin, serum 2.3 [facility] (1.5-4.5) 7 albumin, serum 4.4 g/dL [facility] (3.5-5.5) 7 protein, total, serum 6.7 g/dL [facility] (6.0-8.5) 7 calcium, serum 9.0 mg/dL [facility] (8.7-10.2) 7 carbon dioxide, venous blood 22 mmol/L [facility] (20-32) 7 chloride, serum 102 mmol/L [facility] (97-108) 7 potassium, serum 3.8 mmol/L [facility] (3.5-5.2) 7 sodium, serum 137 mmol/L [facility] (135-145) 7 urea nitrogen/creatinine ratio, serum 13 [facility] (8-27) 7 estimated glomerular filtration rate >59 mL/min/1. 73 [facility] ( >59) 7 creatinine, serum 1.04 mg/dL [facility] (0.57-1.00) High 7 urea nitrogen, blood 13 mg/dL [facility] (5-26) 7 blood glucose, random 72 mg/dL [facility] (65-99) HISTORY OF MEDICATION USE Medication Status Instructions Dates Provider Indications Com ments Crestor 40 mg tablet active TAKE 1 TABLET EVERY DAY 4 Jaquan Walsh MD flecainide 50 mg tablet active TAKE 1 TABLET BY MOUTH TWICE DAILY 2 Lewis jon magnesium oxide 400 mg magnesium tablet active Take 1 tablet by mouth twice a day 2 Clive Whaley irbesartan 300 mg tablet active TAKE ONE TABLET BY MOUTH DAILY 9 Vivi VIZCAINOP metoprolol succinate 100 mg tablet extended release 24 hr active Take 1 tablet by mouth once a day Ana Washburn NP Coreg 6.25 mg tablet completed 1 tablet by mouth twice a day 4 - 8 Ana Washburn NP Effexor XR 150 mg capsule,extend ed release 24hr completed Take 1 capsule by mouth once a day - 8 Ana Washburn NP VERAPAMIL HCL 120 MG ORAL TABLET completed take one once daily - 4 Allen Choi MD gabapentin 300 mg capsule completed Take 1 capsule by mouth three times a day - 8 Ana Washburn NP Wellbutrin XL 300 mg tablet extended release 24 hr completed Take 1 tablet by mouth once a day - 8 Ana Washburn NP SOCIAL HISTORY Date Observation Value Provider personal history of marijuana use no Clive Whaley drug use no Clive Whaley alcohol use no Clive Whaley smoking/tobacco cess ation, patient education and counseling yes Clive Whaley number of years as a smoker 10 years or m ore Clive Whaley smoking history, tot al pack/year 16 Clive Whaley cigarette use yes Clive Whalye smoking status Current some day smoker Lukasz Whaley personal history of marijuana use no Clive Whaley drug use no Clive Whaley alcohol use no Clive Whaley smoking/tobacco cess ation, patient education and counseling yes Clive Whaley number of years as a smoker 10 years or m ore Clive Whaley smoking history, tot al pack/year 16 Clive Whaley cigarette use yes Clive Whaley smoking status Current some day smoker [facility] personal history of marijuana use no [facility] drug use no [facility] alcohol use no [facility] smoking/tobacco cess ation, patient education and counseling yes [facility] number of years as a smoker 10 years or m ore [facility] smoking history, tot al pack/year 16 [facility] cigarette use yes [facility] smoking status Current some day smoker [facility] personal history of marijuana use no Vivi Ventimiglia [facility] drug use no Vivi Ventimig shyam [facility] alcohol use no Vivi Ventimig shyam [facility] cigarette use yes Vivi Ventimi glia [facility] smoking status Current some day smoker Ja rret smoking/tobacco cess ation, patient education and counseling yes Rome Donaldson RN social history E&M Marital Statu s: L orion with family/friends E thnicity: Rome Donaldson RN social history reviewed E&M reviewed Rome Donaldson RN smoking history, tot al pack/year 16 Allen Choi MD cigarette use 8 Allen Reynaga drug use none Allen Choi MD smoking/tobacco cess ation, patient education and counseling yes Allen Choi MD social history reviewed E&M reviewed Allen Choi MD physical exercise, frequency, days per week no [facility] caffeine use, averag e drinks per day yes [facility] alcohol use, average drinks per day none [facility] number of years as a smoker 10 years or m ore [facility] smoking status Smoker [facility] FUNCTIONAL STATUS Date Observation Value Provider HRA, CV Assess/Plan, Angina (inactive) Management Plan continue current therapy Clive Whaley MENTAL STATUS Date Observation Value Provider assessment of judgme nt and insight E&M Alert and oriented to time, place and person. Mood and affect are normal. Rome Donaldson RN assessment of judgme nt and insight E&M Alert and oriented to time, place and person. Mood and affect are normal. Allen Choi MD INSURANCE PROVIDERS Payer name Policy type / Coverage type [facility] ID [place] MEDICAID (2) Medicaid [id number] ADVANCE DIRECTIVES Name Date DISCUSSED - NO DECISION MADE TREATMENT PLAN Date Name Performer Telehealth- pre-op Walter bennett MD Telehealth- pre-op Walter bennett MD Telehealth- pre-op Walter bennett MD Telehealth- pre-op:E xtensive review of the chart was done Ronnell Dutton called the patient E Ps and possinle ablation tomorrow T ONIGHT d o not flecainide , magnesium oxide, or metoprolol succinate N O meds in AM ands stay NPO e , or metoprolol succinate N O meds in AM ands stay NPO H er updated medication list for this problem includes: Flecainide 50 Mg Tablet (Flecainide) ..... Take 1 tablet by mouth twice daily Metoprolol Succinate 100 Mg Tablet Extended Release 24 Hr (Metoprolol succinate) ..... Take 1 tablet by mouth once a day Walter Dutton MD :neg ihs and egfrt Jaquan Walsh MD SP-EP study ablation (dx VT) in 1-2 months:see #2 Walter Dutton MD SP-EP study ablation (dx VT) in 1-2 months:education about the compliance with diet and medications was done by Dr. Dutton in person B P today: 168/100 P rior BP: 152/101 (11/04/2023) & #13;Labs Reviewed: C reat: 1.04 (02/26/2010) C hol: 175 (09/30/2023) HDL: 48 (09/30/2023) LDL: 96 (09/30/2023) T (09/30/2023) Her updated medication list for this problem includes: Metoprolol Succinate 100 Mg Tablet Extended Release 24 Hr (Metoprolol succinate) ..... Take 1 tablet by mouth once a day Irbesartan 300 Mg Tablet (Irbesartan) ..... Take one tablet by mouth daily Walter Dutton MD SP-EP study ablation (dx VT) in 1-2 months: S he wore a holter 10/2023 which revealed Sinus Rhythm with 1 Ventricular Tachycardia event, average heart rate was 81bpm with a maximum rate of 164bpm and a minimum rate of 51bpm. VT was documented as 30 beats with a maximum rate of 160bpm. S he has been experiencing significant fatigue which is not improving. She has been on Flecainide since Nov, she has not seen any significant improvment in her sxs. We discussed EP study and potential ablation given her normal stress test, her arrythmias are not from ischemic origin. Will obtain holter to reassess arrythmias. Orders: E P Study (*) A BLATION w/ Anesthesia (*) B ASIC METABOLIC PANEL W/EGFR (78059) C BC (INCLUDES DIFF/PLT) (6399) L IPID PANEL (7600) P ROTHROMBIN TIME WITH INR (8847) P ARTIAL THROMBOPLASTIN TIME, ACTIVATED (763) Her updated medication list for this problem includes: Flecainide 50 Mg Tablet (Flecainide) ..... Take 1 tablet by mouth twice daily Metoprolol Succinate 100 Mg Tablet Extended Release 24 Hr (Metoprolol succinate) ..... Take 1 tablet by mouth once a day Clive Whaley SP-EP study ablation (dx VT) in 1-2 months: S he is working on quitting. Complete cessation encouraged. Clive Whaley SP-EP study ablation (dx VT) in 1-2 months:see #2 Clive Whaley SP-EP study ablation (dx VT) in 1-2 months: B P today: 168/100 P rior BP: 152/101 (11/04/2023) Labs Reviewed: C reat: 1.04 (02/26/2010) C hol: 175 (09/30/2023) HDL: 48 (09/30/2023) LDL: 96 (09/30/2023) T (09/30/2023) Her updated medication list for this problem includes: Metoprolol Succinate 100 Mg Tablet Extended Release 24 Hr (Metoprolol succinate) ..... Take 1 tablet by mouth once a day Irbesartan 300 Mg Tablet (Irbesartan) ..... Take one tablet by mouth daily Clive Whaley SP-EP study ablation (dx VT) in 1-2 months: S he wore a holter 10/2023 which revealed Sinus Rhythm with 1 Ventricular Tachycardia event, average heart rate was 81bpm with a maximum rate of 164bpm and a minimum rate of 51bpm. VT was documented as 30 beats with a maximum rate of 160bpm. S he has been experiencing significant fatigue which is not improving. She has been on Flecainide since Nov, she has not seen any significant improvment in her sxs. We discussed EP study and potential ablation given her normal stress test, her arrythmias are not from ischemic origin. Will obtain holter to reassess arrythmias. Orders: E P Study (*) A BLATION w/ Anesthesia (*) B ASIC METABOLIC PANEL W/EGFR (48854) C BC (INCLUDES DIFF/PLT) (6399) L IPID PANEL (7600) P ROTHROMBIN TIME WITH INR (8847) P ARTIAL THROMBOPLASTIN TIME, ACTIVATED (763) Clive Whaley SP-EP study ablation (dx VT) in 1-2 months: C CS SCORE 25, NEG NUC 24 Clive Whaley SP-EP study ablation (dx VT) in 1-2 months Clive Whaley :SCORE 25, NEG NUC 24 Jaquan bautista MD :score 25 Jaquan Walsh MD Electrophysiology:Rui reeder wore a holter 10/2023 which revealed Sinus Rhythm with 1 Ventricular Tachycardia event, average heart rate was 81bpm with a maximum rate of 164bpm and a minimum rate of 51bpm. VT was documented as 30 beats with a maximum rate of 160bpm. W ill start her on Magnesium 400 mg BID, Flecanide 50 mg BID to better control her arrythmias. R epeat holter in 6 months. Clive Whaley Electrophysiology:Rui reeder is currently scheduled for stress test as VT was seen on holter, rule out underlying ischemia. Clive Whaley Electrophysiology: B P today: 152/101 P rior BP: 125/78 (10/20/2023) Labs Reviewed: C reat: 1.04 (02/26/2010) C hol: 175 (09/30/2023) HDL: 48 (09/30/2023) LDL: 96 (09/30/2023) T (09/30/2023) Clive Whaley Electrophysiology: n ormal ef, mild mr with mvp and mild tr with nml pap (last echo 10/2023) Clive Whaley Electrophysiology: S he is working on quitting. Complete cessation encouraged. Clive Whaley Cardiology: n eg ihs Ana Washburn NP Cardiology: S he is working on quitting. Complete cessation encouraged. Ana Washburn NP Cardiology: m ild mr with mvp and mild tr with nml pap (last echo 10/2023) Ana Acharyalukasz WARD Cardiology: m ild mr with mvp (last echo 10/2023) Ana Washburn SYLVIA Cardiology: T elesentry 09/20/23-10/04/23 S inus Rhythm with 1 Ventricular Tachycardia event, rare Ventricular ectopics, and r are Supraventricular ectopics. The average heart rate was 81bpm with a maximum r ate of 164bpm and a minimum rate of 51bpm. VT was documented as 30 beats w ith a maximum rate of 160bpm. VE?s were documented as couplets and isolated b eats. SVE?s were documented as a triplet, couplets, and isolated beats. She states that she still has symptoms occuring at rest and she gets shortness of breath and dizziness. W ill check Stress Cardiac PET-CT for stratification. W ill check labs W ill have patient see Dr. Dutton for possible ablation. Ana Acharyalukasz WARD Cardiology: B P well controlled on current regimen B P today: 125/78 P rior BP: 170/91 (09/20/2023) The following medications were removed from the medication list: Coreg 6.25 Mg Tablet (Carvedilol) ..... 1 tablet by mouth twice a day Her updated medication list for this problem includes: Metoprolol Succinate 100 Mg Tablet Extended Release 24 Hr (Metoprolol succinate) ..... Take 1 tablet by mouth once a day Irbesartan 300 Mg Tablet (Irbesartan) ..... Take one tablet by mouth daily Ana Spanglerwillie WARD :mild mr wiht mvp and midl tr wi th nml pap Jaquan Walsh MD :neg ihs Jaquan Walsh MD Cardiology:cessation encouraged Vivi Ventimiglia [facility] Cardiology:with conc melany for underlying ELGIN w ill plan S Vivi Ventimiglia [facility] Cardiology:with epis odes occuring daily n o anemia or electrolyte disturbance on recent labs w ill update TSH W ill plan tele monitor to look for arrhythmia w ill do echo to look for any valvular abnormalities H er updated medication list for this problem includes: Metoprolol Succinate 100 Mg Tablet Extended Release 24 Hr (Metoprolol succinate) Vivi Vital [facility] Cardiology:previous history back in early 20s s he is symptomatic with palpitations w ill update echo c ontinue BB Vivibrett Vital [facility] Cardiology:uncontrol led not at goal on metoprolol alone W ill add ARB W ill have her monitor BP at home for goal <130/80 E ncouraged low salt diet w ill do echo to look for any LVH H er updated medication list for this problem includes: Irbesartan 300 Mg Tablet (Irbesartan) ..... Take one tablet by mouth daily Metoprolol Succinate 100 Mg Tablet Extended Release 24 Hr (Metoprolol succinate) Vivibrett Vital [facility] test results:The Pat jodie was reencouraged to stop smoking. Allen Choi MD test results Allen Choi MD test results:she is having frequent pvc;s and i will try to change her verapamil to coreg and see if that helps. H er updated medication list for this problem includes: Verapamil Hcl 120 Mg Tabs (Verapamil hcl) ..... Take one once daily Allen Choi MD test results: B P today: 116/71 Prior BP: 139/78 (02/20/2010) H gb: 12.1 (02/26/2010) HCT: 36.1 (02/26/2010) Platelets: 272 X10E3/UL (02/26/2010) R BC: 4.24 X10E6/UL (02/26/2010) WBC: 8.3 X10E3/UL (02/26/2010) B UN: 13 (02/26/2010) Creat: 1.04 (02/26/2010) Glucose: 72 (02/26/2010) N a+: 137 (02/26/2010) K+: 3.8 (02/26/2010) Cl: 102 (02/26/2010) CHOL: 189 (02/26/2010) LDL: 116 (02/26/2010) HDL: 48 (02/26/2010) T (02/26/2010) aN Choi MD new patient:The Veda ent was reencouraged to stop smoking. O rders: T OBACCO USE CESSATION INTERMEDIATE 3-10 MINUTES (CPT-96435) Allen Choi MD new patient Allen Choi MD new patient:rx weight loss Allen Choi MD new patient:will omar ck an echo for this and for the palps. O rders: C omplete Echo (CPT-73893) H olter Monitor 24 Hr (CPT-61965) Allen Choi MD Date Name PARTIAL THROMBOPLAST IN TIME, ACTIVATED PROTHROMBIN TIME WIT H INR LIPID PANEL CBC (INCLUDES DIFF/P LT) BASIC METABOLIC PANE L W/EGFR ABLATION w/ Anesthes ia EP Study Stress Regadenoson Holter Monitor [address], Coronary Calcium Score Stress Cardiac PET-C T PROBNP, N TERMINAL BASIC METABOLIC PANE L W/EGFR CT, Coronary Calcium Score CRP, high sensitivit y TSH, free T4, total T3 Lipoprotein (a) LIPID PANEL Microalb/Creatinine Urine, Random Monitor - Telemetry (Mobile Cardiac) Sleep Study Home Complete Echo THYROID PANEL WITH T SH, 3RD GENERATION Vitamin D, 1,25 + 25 -Hydroxy CBC (INCLUDES DIFF/P LT) LIPID PANEL COMPREHENSIVE METABO LIC PANEL W/EGFR Holter Monitor 24 Hr Complete Echo Phone 11-20 HISTORY OF PROCEDURES Procedure Date Procedure Name Provider Procedure Notes S tatus EKG Walter Dutton MD comp leted CT- Coronary CA score Jaquan Walsh MD completed EKG Jaquan Walsh MD complete d EKG Allen Choi MD completed
--- OUTSIDE RECORDS SUMMARY | 2024-10-07 14:26 | XMS_ITS | CONTINUITY OF CARE DOCUMENT ---
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 Mitral valve prolapse active Vivi Ventimi glia 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 Palpitations active Vivi Ventimiglia 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 Ventricular tachycardia, nonsustained active Clive Whaley ENCOUNTERS Date Type Provider Location Encounter Diag nosis - In-person encounter Office Visit Walter Dutton MD [facility] - In-person encounter Office Visit Walter Dutton MD [facility] ScreeningVentricular tachycardia, nonsustained - In-person encounter Office Visit Jaquan Walsh MD [facility] - In-person encounter Office Visit Jaquan Walsh MD [facility] ScreeningHypertension benign essentialNicotine dependenceMitral valve prolapsePalpitations - In-person encounter Office Visit Allen Choi MD [facility] - In-person encounter Office Visit Allen Choi MD [facility] PALPITATIONS-02/09 HOLTER SR 62-148MITRAL VALVE PROLAPSE-02/09 [...] harmony [place] blood pressure, cuff size regular Fl marty [place] height E&M 64 [in_i] Radha [place] Body Mass Index (Ratio) 32.44 kg/m2 Clive Whaley blood pressure, cuff size regular [facility] blood pressure, diastolic 101 mm[Hg] [facility] blood pressure, systolic 152 mm[Hg] [facility] oxygen saturation, oximetry 98 % [facility] respiratory rate E&M 16 /min [facility] pulse rate 97 /min [facility] weight E&M 189 [lb_av] [facility] height E&M 64 [in_i] [facility] Body Mass Index (Ratio) 32.09 kg/m2 Rosario Walsh MD pulse rate 80 /min [facility] blood pressure, cuff size regular [facility] blood pressure, diastolic 78 mm[Hg] [facility] blood pressure, systolic 125 mm[Hg] [facility] 99 % [facility] respiratory rate E&M 15 /min [facility] weight E&M 187 [lb_av] [facility] height E&M 64 [in_i] [facility] Body Mass Index (Ratio) 32.27 kg/m2 Rosario Walsh MD blood pressure, diastolic 91 mm[Hg] Nita [facility] blood pressure, systolic 170 mm[Hg] Meghan kLog blood pressure, cuff size regular [facility] blood pressure, diastolic 91 mm[Hg] Lew et [...] 0-149 4 cholesterol, serum 192 mg/dL [facility] 280-125 5299/08/1 4 calcium, serum 9.5 mg/dL [facility] 8.7-10.2 4 carbon dioxide, venous blood 23 mmol/L [facility] 20-29 4 chloride, serum 104 mmol/L [facility] 96-106 4 potassium, serum 4.7 mmol/L [facility] 3.5-5.2 4 sodium, serum 140 mmol/L [facility] 529-935 5066/08/1 4 urea nitrogen/creatinine ratio, serum 13 [facility] [...] Estab. 3 platelet count 264 X10E3/UL [facility] 725-982 9573/08/1 3 red blood cell distribution width 11.7 [...] High 9 cholesterol, serum 175 mg/dL [facility] 957-374 8439/05/2 7 vitamin D 25-hydroxy, serum 33.1 ng/mL [...] by mouth once a day - 8 Aan Washburn NP SOCIAL HISTORY Date Observation Value [...] Whaley smoking status Current some day smoker Lukasz [...] Whaley smoking status Current some day smoker [facility]d personal history of marijuana use no [facility] drug use no [facility] alcohol use no [facility] smoking/tobacco cess ation, patient education and counseling yes [facility] number of years as a smoker 10 years or m ore [facility] smoking history, tot al pack/year 16 [facility] cigarette use yes [facility] smoking status Current some day smoker [facility] personal history of marijuana use no Vivi Ventimiglia [facility] drug use no Vivi Ventimig shyam [facility] alcohol use no Vivi Ventimig shyam [facility] cigarette use yes Vivi Ventimi glia [facility] smoking status Current some day smoker Ja [...] Payer name Policy type / Coverage type Critical access hospital ID [place] (2) Medicaid [id number] ADVANCE DIRECTIVES Name Date DISCUSSED - NO [...] Anesthesia (*) B ASIC METABOLIC PANEL W/EGFR (80984) C BC (INCLUDES DIFF/PLT) (6399) L IPID [...] Anesthesia (*) B ASIC METABOLIC PANEL W/EGFR (27682) C BC (INCLUDES DIFF/PLT) (6399) L IPID [...] is working on quitting. Complete cessation encouraged. Cliev Whaley Cardiology: n eg ihs Ana Washburn [...] Jaquan Walsh MD Cardiology:cessation encouraged Vivi Ventimiglia [facility] Cardiology:with conc melany for underlying ELGIN w ill plan S Vivi Ventimiglia [facility] Cardiology:with epis odes occuring daily n o anemia or electrolyte disturbance on recent labs w ill update TSH W ill plan tele monitor to look for arrhythmia w ill do echo to look for any valvular abnormalities H er updated medication list for this problem includes: Metoprolol Succinate 100 Mg Tablet Extended Release 24 Hr (Metoprolol succinate) Vivi Vital [facility] Cardiology:previous history back in early 20s s he is symptomatic with palpitations w ill update echo c ontinue BB Vivibrett Vital [facility] Cardiology:uncontrol led not at goal on metoprolol [...] Release 24 Hr (Metoprolol succinate) Vivibrett Vital [facility] test results:The Pat jodie was reencouraged to [...] 116 (02/26/2010) HDL: 48 (02/26/2010) T (02/26/2010) Na Choi MD new patient:The Veda ent was reencouraged to stop smoking. O rders: T OBACCO USE CESSATION INTERMEDIATE 3-10 MINUTES (CPT-17170) Allen Choi MD new patient Allen Choi MD new patient:rx weight loss Allen Choi MD new patient:will omar ck an echo for this and for the palps. O rders: C omplete Echo (CPT-70139) H olter Monitor 24 Hr (CPT-53331) Allen Choi MD Date Name PARTIAL THROMBOPLAST [...]
== END 2024-09-30 14:18 | disposition home or self-care (01) ==
PROVIDERS: Emergency Provider Nurse Practitioner Family; PCP Nurse Practitioner Family
DX: U07.1 COVID-19 (principal); I48.91 Unspecified atrial fibrillation; I10 Essential (primary) hypertension; F17.200 Nicotine dependence, unspecified, uncomplicated
CPT/HCPCS: 87081; 87426; 87804; 87880; 99213; G0463

== ENCOUNTER 2025-05-13 14:54 | Emergency (ER) | payer OTHER, SELFPAY ==
--- NOTE | ~2025-05-13 | XR_ITS ---
Exam: X-ray knee left minimum 4 views. Clinical history: Pain and swelling. Comparisons: None. TECHNIQUE: 5 images of the left knee were obtained. FINDINGS: Bone mineralization is within normal limits. No fracture. No dislocation. Moderate size suprapatellar effusion. Soft tissue swelling about the left knee. Intracondylar notch in the distal left femur is prominent in the lateral projection. The finding is n onspecific but can be seen with an injury to the anterior cruciate ligament. Correlate clinically. IMPRESSION: 1. No acute bony abnormality. 2. Moderate-sized suprapatellar effusion. 3. Intracondylar notch in the distal left femur is prominent in the lateral projection. The finding i s nonspecific but can be seen with an injury to the anterior cruciate ligament. Differential includes anatomic variant. Correlate clinically. Reviewed, dictated and finalized at location A. IMPRESSION: 1. No acute bony abnormality. 2. Moderate-sized suprapatellar effusion. 3. Intracondylar notch in the distal left femur is prominent in the lateral pro jection. The finding is nonspecific but can be seen with an injury to the anter ior cruciate ligament. Differential includes anatomic variant. Correlate clinic [facility].
--- NOTE | 2025-05-13 15:00 | ED_ITS ---
HPI - Extremity Injury (Lower) General Chief Complaint: Extremity Injury, Lower Stated Complaint: knee pain Time Seen by Provider: 05/13/25 14:55 Source: patient Mode of arrival: ambulatory Limitations: no limitations History of Present Illness HPI Narrative: Patient is a 45-year-old female presents with 4 days of left knee pain. States she turned and felt a sharp searing pain and heard a pop. Since then she has had swelling, feeling of intense pressure and difficulty bending due to pain. Has taken meloxicam and Tylenol Related Data Home Medications ?Medication ?Instructions ?Recorded ?Confirmed ?Last Taken ?Type irbesartan 300 mg tablet 300 mg DIRECTED 10/27/23 10/27/23 Unknown History flecainide 50 mg tablet mg 10/19/24 Unknown History magnesium oxide 400 mg (241.3 mg mg 10/19/24 Unknown History magnesium) tablet metoprolol succinate 50 mg mg PO 10/19/24 Unknown History tablet,extended release 24 hr rosuvastatin 40 mg tablet mg 10/19/24 Unknown History meloxicam 15 mg tablet mg 05/13/25 Unknown History Allergies Allergy/AdvReac Type Severity Reaction Status Date / Time No Known Allergies Allergy Verified 05/13/25 15:02 Review of Systems Review of Systems: All systems reviewed & are unremarkable except as noted in HPI and below Constitutional: Constitutional: Denies body ache(s), Denies chills, Denies fatigue, Denies fever(s), Denies headache(s), Denies malaise and Denies weakness Eyes: Eyes: Denies blurry vision, Denies irritation and Denies loss of vision ENT: Denies otalgia, Denies headache(s), Denies nasal discharge, Denies sinus pain and Denies sore throat Cardiovascular: Cardiovascular: Denies chest pain, Denies irregular heart rhythm and Denies dyspnea Respiratory: Respiratory: Denies dyspnea Gastrointestinal: Gastrointestinal: Denies abdominal pain, Denies melena, Denies hematochezia, Denies diarrhea, Denies nausea and Denies vomiting Musculoskeletal: Musculoskeletal: Denies back pain, Denies myalgias, Reports arthralgias and Reports joint swelling Integumentary/Breasts: Skin/Breast: Denies pruritus and Denies rash Neurologic: Denies headache(s), Denies loss of vision and Denies weakness Psychiatric: Psychiatric: Reports no additional psychiatric complaints Endocrine: Endocrine: Denies fatigue [facility] Past Medical History Medical History Atrial fibrillation HTN (hypertension) MVP (mitral valve prolapse) Surgical History Surgical History History of cardiac radiofrequency ablation No significant past surgical history Family History Family History Father Diabetes mellitus Hypertension Cerebrovascular accident Mother Depression Sibling Depression Other Depression Social History Social History Smoking status: Current some day smoker Alcohol intake: never Substance use: never Substance use type: does not use Gender identity (if verbalized by the patient): Female Comments At time of signature, agree with nursing past medical, surgical, social and family history. There is no relevant family history pertinent to the presenting complaint. Exam Const: General: cooperative, healthy appearing, comfortable, no acute distress and well nourished Nutritional Appearance: well nourished Orientation/consciousness: patient oriented x3 Limitations: no limitations HENMT: Head: normal to inspection, normocephalic and atraumatic Ears: hearing grossly normal bilaterally and external ears normal Face/Nose/Sinus: Normal external nose present, normal facial exam and face symmetric Face and sinus: normal facial exam and face symmetric Mouth: Yes lip normal Eyes: General: appearance normal, both eyes and all related structures Alignment and Position: alignment normal and position normal Periorbital: periorbital findings normal Eyelids: eyelids normal Pupils: Equal, round and reactive pupils present EOM: EOMs intact bilaterally Neck: Neck: normal visual inspection, full ROM and supple Chest: Chest palpation & inspection: normal inspection of the chest Resp: Effort & Inspection: normal respiratory effort and able to speak in complete sentences Auscultation: clear to auscultation bilaterally Cardio: Rate: regular rate Rhythm: regular rhythm Heart sounds: S1 normal heart sound present and S2 normal heart sound present GI: Inspection: normal to inspection Skin: General skin exam: normal color and no rashes or lesions noted Neuro: General: patient oriented x3 and moves all extremities Cranial nerves: Yes Equal, round and reactive pupils present Speech: normal speech Gait exam (Neuro): Normal gait present Extrem: General: normal to inspection, full ROM and no edema Left lower extremity: hip/thigh Details: normal to inspection and normal ROM; no tenderness, knee Details: normal to inspection, tenderness Location: of the medial joint line and of the infrapatellar area, swelling Location: of the infrapatellar area, abnormal ROM Details: pain with active ROM Details: with flexion and knee ligament exam abnormal Details: valgus stress test Details: pain noted and varus stress test Details: pain noted; no ecchymosis, lower leg Details: normal to inspection; no tenderness and no localized swelling and ankle Details: normal to inspection and normal ROM; no tenderness and no swelling Psych: Appearance: grossly normal and well kempt Mental Status: mental status grossly normal Speech and movement: Normal speech and movement present Affect: normal affect Attitude: cooperative Thought process: Normal thought process present Course Course Emergency Course: Patient is aware of diagnosis, understands and agrees to treatment plan. Anticipatory guidance given. Patient agrees to follow-up as directed and is aware of reasons to seek care at the emergency department. Portions of this record may have been created with voice recognition software Level of Care: Express Care Visit Vital Signs Vital signs: Reviewed MDM - Extremity Injury (Lower) MDM Narrative Medical decision making narrative: Patient is able to bear weight and ambulate with some pain. No surface of trauma, but obvious effusion. No overlying erythema or warmth. The L knee is without obvious asymmetry or deformity when comparing to the R. Fully extended knee with no pain. Has pain with bending and internal and external rotation. tender to palpate of the patella with effusion. Tender over the infrapatellar tendon. Nontender lateral joint line, or medial or lateral tibial plateaus. Tender over medial joint line. Nontender over the proximal fibular head. Nontender, fullness, or mass of the popliteal fossa. NO quadriceps tenderness. No laxity of the ACL, PCL, MCL, LCL. Distal motor and neurovascular status intact. Patient placed in Cliff wrap and ortho follow-up given Pt well hydrated appearing, in no respiratory distress, hemodynamically stable. Recommend supportive care. The patient is stable at time of discharge the clinical impression was discussed and the patient was given the opportunity to ask questions, which were addressed as completely as possible given the information available at present. Anticipatory guidance and return to care precautions were discussed and the importance of primary care follow-up was stressed and encouraged. The patient voiced understanding of the plan, indications to return, and the need for follow-up. Patient is appropriate for outpatient treatment and follow-up. Differential Diagnosis Differential diagnosis: Likely acute internal derangement of knee, fracture of femur (distal) and other (Knee effusion, tibial plateau fracture,) Medical Records Attestation: I reviewed the patient's medical records. Imaging Data Radiologist's impression: Exam: X-ray knee left minimum 4 views. Clinical history: Pain and swelling. Comparisons: None. TECHNIQUE: 5 images of the left knee were obtained. FINDINGS: Bone mineralization is within normal limits. No fracture. No dislocation. Moderate size suprapatellar effusion. Soft tissue swelling about the left knee. Intracondylar notch in the distal left femur is prominent in the lateral projection. The finding is nonspecific but can be seen with an injury to the anterior cruciate ligament. Correlate clinically. IMPRESSION: 1. No acute bony abnormality. 2. Moderate-sized suprapatellar effusion. 3. Intracondylar notch in the distal left femur is prominent in the lateral projection. The finding is nonspecific but can be seen with an injury to the anterior cruciate ligament. Differential includes anatomic variant. Correlate clinically. Discharge Plan Discharge Clinical Impression: Effusion of knee joint, left Acute injury of anterior cruciate ligament Qualifiers: Encounter type: initial encounter Laterality: left Qualified Code(s): S89.92XA - Unspecified injury of left lower leg, initial encounter Patient Disposition: Home Condition: Stable Instructions: ACL Injury (ED), Swollen Knee Joint (ED) Additional Instructions: Xray showed no fracture but does show effusion and likely ACL injury Minimize activities that aggravate the condition The RICE protocol. Follow the RICE protocol as soon as possible after your injury: Rest your knee by not walking on it. Ice should be immediately applied to keep the swelling down. It can be used for 20 to 30 minutes, three or four times daily. Do not apply ice directly to your skin. Compression dressings, bandages or cliff-wraps will immobilize and support your injured knee. Elevate your knee above the level of your heart as often as possible during the first 48 hours. Medication: Nonsteroidal anti-inflammatory drugs (NSAIDs) such as ibuprofen and naproxen can help control pain and swelling. Because they improve function by both reducing swelling and controlling pain, they are a better option for mild sprains than narcotic pain medicines. Please schedule a follow-up visit with your personal physician for further evaluation and treatment within 1week OR If your symptoms persist, change or worsen significantly before you can contact your personal physician then please, without delay, go to the emergency department for further evaluation. Patient Language: Bulgarian Prescriptions: No Action metoprolol succinate 50 mg tablet extended release 24 hr PO magnesium oxide 400 mg (241.3 mg magnesium) tablet flecainide 50 mg tablet rosuvastatin 40 mg tablet meloxicam 15 mg tablet irbesartan 300 mg tablet 300 mg DIRECTED Follow-up/Referrals: Seb Small MD [Physician] - 3 Days Stand Alone Forms: Work/School Release IP Time of Disposition: 15:34
[2025-05-13 15:01] VITALS: BP 144/85; PULSE 70; RESP 18; TEMP 36.4; O2SAT 98
--- OUTSIDE RECORDS SUMMARY | 2025-05-13 15:07 | XMS_ITS | Clinical Summary ---
Author Organization [facility] Address [facility] [place] [address] Care Team Providers Care Incinerator Attendant Name Role Phone Giulia Kirkpatrick MD Primary Care Provider [phone] Allergies No known active allergies Medications metoprolol [...] Years Used Date Smoking Tobacco: Former Cigarettes 2 - 1994 Smokeless Tobacco: Never Tobacco Cessation:Counseling [...] 60 03/27/2024 7:35 PM CDT Temperature 36.7 C (98 F) 03/27/2024 7:36 PM CDT Respiratory Rate 15 03/27/2024 7:35 PM CDT Oxygen Saturation 100% 03/27/2024 7:35 PM CDT Inhaled Oxygen Concentration - - Weight 85.7 kg (189 lb) 03/27/2024 4:17 PM CDT Height 162.6 cm (5' 4) 03/27/2024 4:17 PM CDT Body Mass Index 32.44 03/27/2024 4:17 PM CDT Plan of Treatment Health Maintenance Due Date Last Done Comments Colorectal Cancer Screening Colonoscopy (10 Years) 1978 Annual Physical 1981 Hepatitis C 1996 DTaP, Tdap and Td Vaccines ( 1 - Tdap) 1997 Hepatitis B Vaccines (1 of 3 - 19+ 3-dose series) 1997 Mammogram Screening 2018 COVID-19 Vaccine (3 - 2023-2 5 season) 2024 01/21/2021, 12/21/2020 Meningococcal B Vaccine Aged Out No l onger eligible based on patient's age to complete this topic Meningococcal Vaccine Aged Out No santos andrés eligible based on patient's age to complete this topic Pneumococcal Vaccine: Pediatrics (0 to 5 Years) and At-Risk Patients (6 to 49 Years) Aged Out No longer eligible b ased on patient's age to complete this topic RSV Immunizations Under 20 Months Aged Out No longer eligible b ased on patient's age to complete this topic Insurance [employer] Care Teams Incinerator Attendant Relationship Specialty Start Date End Date Giulia Kirkpatrick MD [address] [place] [address] [place] [address] PCP - General FAMILY PRACTICE 03/27/24
--- OUTSIDE RECORDS SUMMARY | 2025-05-13 15:07 | XMS_ITS | Clinical Summary ---
Author Organization [facility] [employer] Address [address] [place] [address] Care Team Providers Care Cook Camp Name Role Phone Easton Bryant DO Primary Care Provider [phone] Source Comments [facility] [employer],non-owned Affiliates and Associated Physician Practices is amultiple site organization consisting of ambulatory clinics and hospital sitesin [place], [place], [place] and [place]. This disclosure is being madepursuant to the Care Everywhere program and may not contain all information available regarding this patient. Last updated 18.[facility] [employer] Allergies No known active allergies Medications * Be aware that medications may not be up to date on this document. Alwaysverify current medications with the patient. metoprolol succinate XL 24hr (TOPROL XL) 25 MG tablet Take 25 mg by mouth once daily Active fluticasone propionate (FLONASE) 50 MCG/ACT nasal sprayIndication s:Dysfunction of right eustachian tube Blanchard 2 sprays into each nostril once daily 1 bottles 10/19/2017 Active Family History Medical History Relation Name Comments CAD (Coronary Artery Disease) Father CHF, bypass Hypertension Father Other - Pulmonary/Lung Mother Relation Name Status Comments Father Mother Social History Tobacco Use Types Packs/Day Years Used Date Smoking Tobacco: Former Smokeless Tobacco: Never Comments No Sex and Gender Information Value Date Recorded Sex Assigned at Not on file Legal Sex 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 Gender Identity Not on file Sexual Orientation Not on file Last Filed Vital Signs Vital Sign Reading Time Taken Comments Blood Pressure 126/88 10/19/2017 3:30 PM PERSONAL LOAN SPECIALIST Pulse 70 10/19/2017 3:30 PM PERSONAL LOAN SPECIALIST Temperature 36.9 C (98.4 F) 10/19/2017 3:30 PM PERSONAL LOAN SPECIALIST Respiratory Rate 16 10/19/2017 3:30 PM PERSONAL LOAN SPECIALIST Oxygen Saturation 99% 10/19/2017 3:30 PM PERSONAL LOAN SPECIALIST Inhaled Oxygen Concentration - - Weight 74.8 kg (165 lb) 10/19/2017 3:30 PM PERSONAL LOAN SPECIALIST Height 160 cm (5' 3) 10/19/2017 3:30 PM PERSONAL LOAN SPECIALIST Body Mass Index 29.23 10/19/2017 3:30 PM PERSONAL LOAN SPECIALIST Plan of Treatment Health Maintenance Due Date Last Done Comments COLOGUARD (AGES 45-75) - COL ON CA SCREENING 1978 COLON MONITORING 1978 COLONOSCOPY - COLON CA SCREENING 1978 CT COLONOGRAPHY - COLON CA SCREENING 1978 Colorectal Cancer Screening 1978 FIT - COLON CA SCREENING 1978 FLEX SIG - COLON CA SCREENING 1978 LIPID TESTING 1978 MAMMOGRAM 1978 HIV SCREENING 1993 HEPATITIS C SCREENING 03/19/1996 DTAP/TDAP/TD VACCINES (1 - Tdap) 1997 HEPATITIS B VACCINE (1 of 3 - 19+ 3-dose series) 1997 COVID-19 VACCINE ( - 2023-2 5 season) 2024 DEPRESSION SCREENING 10/03/2024 INFLUENZA VACCINE (#1) 2025 ZOSTER VACCINE (1 of 2) 2028 HIB VACCINE Aged Out No longer eligi ble based on patient's age to complete this topic HPV VACCINE Aged Out No longer eligi ble based on patient's age to complete this topic MENINGOCOCCAL (Group B) VACC INE SHARED DECISION-MAKING Aged Out No longer eligibl e based on patient's age to complete this topic MENINGOCOCCAL GROUPS A/C/Y/W VACCINE Aged Out No longer eligible b ased on patient's age to complete this topic PNEUMOCOCCAL VACCINE Aged Out No long er eligible based on patient's age to complete this topic Insurance [employer] Care Teams Cook Camp Relationship Specialty Start Date End Date Easton Bryant DO PCP - General Internal Medicine 10/19/17
--- OUTSIDE RECORDS SUMMARY | 2025-05-13 15:07 | XMS_ITS | Clinical Summary ---
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 Gender Identity Not on file Sexual Orientation Not on file Obstetrics History Last Filed Vital Signs Vital Sign Reading Time Taken Comments Blood Pressure 123/71 06/29/2024 7:51 AM CDT Pulse 65 06/29/2024 7:51 AM CDT Temperature 36.8 C (98.3 F) 06/29/2024 7:51 AM CDT Respiratory Rate 18 06/29/2024 7:51 AM CDT Oxygen Saturation 97% 06/29/2024 7:51 AM CDT Inhaled Oxygen Concentration - - Weight 86.4 kg (190 lb 9 oz) 06/29/2024 5:05 AM CDT Height 162.6 cm (5' 4) 06/28/2024 6:28 AM CDT Body Mass Index [...] season) 2024 01/21/2021, 12/21/2020 Influenza Vaccine (#1) 2025 9, 09/04/2018, 07/03/2017 Pneumococcal vaccine <65 Aged Out No longer eligible based on patient's age to complete this topic Insurance [facility] [place] [address] Care Teams Senior Instrumentation Engineer Relationship Specialty Start Date End Date Giulia Kirkpatrick MD [address] [place] [address] [address] PCP - General Family Medicine 07/24/22
== END 2025-05-13 15:37 | disposition home or self-care (01) ==
PROVIDERS: Emergency Provider Nurse Practitioner Family
DX: M25.462 Effusion, left knee (principal); S89.92XA Unspecified injury of left lower leg, initial encounter; X50.9XXA Other and unspecified overexertion or strenuous movements or postures, initial encounter; I10 Essential (primary) hypertension; I48.91 Unspecified atrial fibrillation; I34.1 Nonrheumatic mitral (valve) prolapse; F17.200 Nicotine dependence, unspecified, uncomplicated
CPT/HCPCS: 73564; 99213; G0463

== ENCOUNTER 2025-09-27 17:48 | Emergency (ER) | payer OTHER, SELFPAY ==
--- NOTE | ~2025-09-27 | US_ITS ---
EXAMINATION:US venous doppler LE LT INDICATION:Left calf pain and leg swelling TECHNIQUE: Multiple grayscale, color flow and Doppler images of the left lower extremity deep venous systems were obtained and reviewed. COMPARISON:No prior studies for comparison. FINDINGS: The common femoral, superficial femoral and popliteal veins demonstrate normal respiratory variation, augmentation and compressibility. Color flow is also seen within the posterior tibial, peroneal, greater saphenous and profunda veins. IMPRESSION: 1: No lower extremity deep venous thrombosis. Reviewed, dictated and finalized at location O. ATTENDANT
--- NOTE | ~2025-09-27 | XR_ITS ---
XR knee LT min 4V 09/27/2025 21:02 INDICATION: Left knee pain after injury PROCEDURE: 4 views left knee COMPARISON: 05/13/2025 FINDINGS: Fracture, dislocation or subluxation is not identified. The soft tissues appear within normal limits. No foreign bodies are identified. IMPRESSION: 1: NO ACUTE BONE OR JOINT ABNORMALITY IDENTIFIED. Reviewed, dictated and finalized at location O. ENGINEER
--- OUTSIDE RECORDS SUMMARY | 2025-09-27 17:50 | XMS_ITS | Data Portability ---
Author Organization [place] - [facility] [employer] Main Office Address [address] [place] [address] Assessment No assessment recorded. Plan of Treatment Reminders Order Date Submit Date Provider Last Modified By Organization Details Last Modified Time Details Appointments Any 30 2025 01:30P SOUMYA Flores Not available Not available Not available Lab TSH, serum or plasma 2024 025 [facility] (Lab), [address] [place], [address], 03/11/2025 08:38:49 CBC w/ auto diff 2024 025 [facility] (Lab), [address] [place], [address], 03/11/2025 08:38:49 lipid panel, serum 2024 025 [facility] (Lab), [address] [place], [address], 03/11/2025 08:38:49 CMP, serum or plasma 2024 025 [facility] (Lab), [address] [place], [address], 03/04/2025 17:08:24 glycohemo globin, total, blood 2024 025 [facility] (Lab), [address] [place], [address], 03/11/2025 08:38:50 OTILIO (antinucl ear antibodie s) screen, serum 2024 025 [facility] (Lab), [address] [place], [address], 03/06/2025 11:46:26 rf (rheumato id factor), serum 2024 025 [facility] (Lab), [address] [place], [address], 03/11/2025 08:38:49 C-reactiv e protein, quantitat fabian, serum or plasma 2024 025 [facility] (Lab), [address] [place], [address], 03/11/2025 08:38:49 ESR (erythroc yte sedimenta tion rate), blood 2024 025 [facility] (Lab), [address] [place], [address], 03/11/2025 08:38:49 BMP + ionized calcium, serum or plasma 2022 023 [facility] (Lab), [address] [place], [address], 09/10/2023 09:58:58 CBC 2022 023 [facility] (Lab), [address] [place], [address], 09/15/2023 16:03:16 troponin T, serum [email or web address] (Lab), [address] [place], [address], 09/16/2023 08:23:57 Referral cardiolog ist referral 2022 023 [email or web address], [address], [place], [address], 10/19/2023 10:26:34 Procedures None recorded. Surgeries None recorded. Imaging None recorded. Medication Orders meclizine 25 mg tablet [address] [id number], [address], [place], [id number], 03/04/2025 09:49:33 meloxicam 15 mg tablet [address] [facility] #[id number], [address], [place], [id number], 03/04/2025 09:49:30 metoprolo l succinate ER 50 mg tablet,ex tended release [address] [facility] #[id number], [address], [place], [id number], 09/09/2023 17:04:47 Patient TargetsNo targets recorded. Patient InstructionsNo instructions recorded. 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 Referral for Mi tral valve prolapse Referring Physician: Dominick Collins, Family Medicine, Encounter Date: 09/09/2023 Results Created Date Observation Date Name Description Value Unit Range Abnormal Flag Note LastModifiedBy Organization Detail LastModifiedTime 01/09/20 22 01/11/2022 OTILIO/A NTINU CLEAR ANTIB ODIES ,IFA antinuclear antibodies, ifa negati ve Negat fabian <1:80 Borde rline 1:80 Posit fabian >1:80 ICAP nomoleg lawson re: AC-0 For more infor keiko christopher about Hep-2 cell patte rns use Kiana ttern s.org , the offic ial websi te for the Inter natio nal Conse nsus on Antin uclea r Antib kayla (OTILIO) Patte rns (ICAP ). Perfo rmed at: [facility] n [address] [address] Lab Direc tor: Mathieu lawrence PhD, Phone : [phone] Not Available [facility] (Lab) [address] [place], [address], 01/11/2022 14:10:19 01/09/20 22 01/09/2022 JOHN TIN ferritin 42 NG/mL 6.24-1 37 Not Available [facility] (Lab) [address] [place], [address], 01/09/2022 17:59:12 01/09/20 22 01/08/2022 FOLAT E, SERUM /PLAS MA folate 7.39 NG/mL 2.76-2 0.0 Not Available [facility] (Lab) [address] [place], [address], 01/08/2022 20:12:58 01/09/20 22 01/08/2022 VITAM IN B12 (ALICIA CAROLINA ) vb12 327 pg/mL 239-93 1 Not Available [facility] (Lab) [address] [place], [address], 01/08/2022 20:12:54 01/09/20 22 01/08/2022 VITAM IN D 25-HY DROXY vd25oh 29.7 NG/mL 30-100 low Vitam in D Statu s: Defic ient: <20 ng/mL Insuf ficie nt: 20-29 ng/mL Suffi cient : 30-10 0 ng/mL Not Available [facility] (Lab) [address] [place], [address], 01/08/2022 19:21:53 01/09/20 22 01/08/2022 SEDIM ENTAT ION RATE erythrocyte sedimentatio n rate 4 mm/HR 0-20 Not Available [facility] (Lab) [address] [place], [address], 01/08/2022 19:19:42 01/09/20 22 01/08/2022 IRON/ TIBC PANEL total iron binding capacity 307 mcg/d L 265-47 5 Not Available [facility] (Lab) [address] [place], [address], 01/08/2022 19:13:49 01/09/20 22 01/08/2022 IRON/ TIBC PANEL % transferrin saturation 43 % 20-55 Not Available [facility] (Lab) [address] [place], [address], 01/08/2022 19:13:49 01/09/20 22 01/08/2022 IRON/ TIBC PANEL unsaturated iron bind capacity 174 mcg/d L 126-38 2 Not Available [facility] (Lab) [address] [place], [address], 01/08/2022 19:13:49 01/09/20 22 01/08/2022 IRON/ TIBC PANEL iron 133 mcg/d L 42-175 Not Available [facility] (Lab) [address] [place], [address], 01/08/2022 19:13:49 01/09/20 22 01/08/2022 COMPR EHENS FABIAN METAB OLIC PANEL sodium 136 mmol/ L 137-14 5 low Not Available [facility] (Lab) [address] [place], [address], 01/08/2022 19:13:25 01/09/20 22 01/08/2022 COMPR EHENS FABIAN METAB OLIC PANEL potassium 4.9 mmol/ L 3.5-5. 1 Not Available [facility] (Lab) [address] [place], [address], 01/08/2022 19:13:25 01/09/20 22 01/08/2022 COMPR EHENS FABIAN METAB OLIC PANEL chloride 106 mmol/ L 98-107 Not Available [facility] (Lab) [address] [place], [address], 01/08/2022 19:13:25 01/09/20 22 01/08/2022 COMPR EHENS FABIAN METAB OLIC PANEL carbon dioxide 24 mmol/ L 22-30 Not Available [facility] (Lab) [address] [place], [address], 01/08/2022 19:13:25 01/09/20 22 01/08/2022 COMPR EHENS FABIAN METAB OLIC PANEL agap 10.9 mmol/ L 14-22 low Not Available [facility] (Lab) [address] [place], [address], 01/08/2022 19:13:25 01/09/20 22 01/08/2022 COMPR EHENS FABIAN METAB OLIC PANEL glucose 94 mg/dL 70-99 Not Available [facility] (Lab) [address] [place], [address], 01/08/2022 19:13:25 01/09/20 22 01/08/2022 COMPR EHENS FABIAN METAB OLIC PANEL BUN 12 mg/dL 8-19 Not Available [facility] (Lab) [address] [place], [address], 01/08/2022 19:13:25 01/09/20 22 01/08/2022 COMPR EHENS FABIAN METAB OLIC PANEL creatinine 0.81 mg/dL 0.66-1 .25 Not Available [facility] (Lab) [address] [place], [address], 01/08/2022 19:13:25 01/09/20 22 01/08/2022 COMPR EHENS FABIAN METAB OLIC PANEL GFR >60 Refer ence Range : [place] ge GFR Healt hy Adult : >60 mL/mi n/1.7 3 m2 Chron ic Kidne y Disea se: 15-60 mL/mi n/1.7 3 m2 Kidne y Failu re: <15/m L/min /1.73 m2 www.n iddk. nih.g ov The MDRD study equat ion has not been valid ated in child romain <18 years of age; pregn ant women ; the elder ly >85 years of age; or in some racia l or ethni c subgr oups, such as Hisvickey nics. Outsi de the valid ated hernan eters , estim ated GFR is less accur ate, requi ring clini jesusita judgm ent on a case- by-ca se basis . Clini jesusita inter preta tion for other races and ages must be made by the clini mauricio. The MDRD study equat ion has not been valid ated for the evalu ation of serum creat inine relat ed to nutri fady l statu s or medic ation usage . For perso ns <18 years of age, a pedia tric GFR calcu lator is avail able on the [facility] websi te: https ://ernestina w.tyrone chung.o rg/pr ofess ional s/kdo qi/gf r_cal culat or Not Available [facility] (Lab) [address] [place], [address], 01/08/2022 19:13:25 01/09/20 22 01/08/2022 COMPR EHENS FABIAN METAB OLIC PANEL alkaline phosphatase 64 U/L 38-126 Not Available [facility] (Lab) [address] [place], [address], 01/08/2022 19:13:25 01/09/20 22 01/08/2022 COMPR EHENS FABIAN METAB OLIC PANEL alanine aminotransfe rase 21 U/L 0-35 Not Available [facility] (Lab) [address] [place], [address], 01/08/2022 19:13:25 01/09/20 22 01/08/2022 COMPR EHENS FABIAN METAB OLIC PANEL aspartate aminotransfe rase 25 U/L 15-37 Not Available [facility] (Lab) [address] [place], [address], 01/08/2022 19:13:25 01/09/20 22 01/08/2022 COMPR EHENS FABIAN METAB OLIC PANEL bilirubin, total 0.50 mg/dL 0.20-1 .30 Not Available [facility] (Lab) [address] [place], [address], 01/08/2022 19:13:25 01/09/20 22 01/08/2022 COMPR EHENS FABIAN METAB OLIC PANEL calcium 9.8 mg/dL 8.4-10 .2 Not Available [facility] (Lab) [address] [place], [address], 01/08/2022 19:13:25 01/09/20 22 01/08/2022 COMPR EHENS FABIAN METAB OLIC PANEL total protein 7.2 g/dL 6.3-8. 2 Not Available [facility] (Lab) [address] [place], [address], 01/08/2022 19:13:25 01/09/20 22 01/08/2022 COMPR EHENS FABIAN METAB OLIC PANEL albumin 4.5 g/dL 3.4-5. 0 Not Available [facility] (Lab) [address] [place], [address], 01/08/2022 19:13:25 01/09/20 22 01/08/2022 COMPR EHENS FABIAN METAB OLIC PANEL globulin 2.7 g/dL 2.6-4. 2 Not Available [facility] (Lab) [address] [place], [address], 01/08/2022 19:13:25 01/09/20 22 01/08/2022 COMPR EHENS FABIAN METAB OLIC PANEL A/G ratio 1.7 ratio 1.0-2. 0 Not Available [facility] (Lab) [address] [place], [address], 01/08/2022 19:13:25 01/09/20 22 01/08/2022 C REACT FABIAN PROTE IN,UL TRA SENS C-reactive protein 0.09 mg/dL 0.0-0. 5 Not Available [facility] (Lab) [address] [place], [address], 01/08/2022 19:13:14 01/09/20 22 01/08/2022 RHEUM ATOID FACTO R rf <8.6 IU/mL 0.0-11 .9 Not Available [facility] (Lab) [address] [place], [address], 01/08/2022 19:13:10 01/09/20 22 01/08/2022 CBC/C OMPLE TE BLD COUNT W/DIF F white blood cells 9.2 x10'3 /uL 4.2-10 .8 Not Available [facility] (Lab) [address] [place], [address], 01/08/2022 18:58:15 01/09/20 22 01/08/2022 CBC/C OMPLE TE BLD COUNT W/DIF F red blood cells 4.81 x10'6 /uL 3.80-5 .20 Not Available [facility] (Lab) [address] [place], [address], 01/08/2022 18:58:15 01/09/20 22 01/08/2022 CBC/C OMPLE TE BLD COUNT W/DIF F hemoglobin 15.8 g/dL 12.0-1 5.6 high Not Available [facility] (Lab) [address] [place], [address], 01/08/2022 18:58:15 01/09/20 22 01/08/2022 CBC/C OMPLE TE BLD COUNT W/DIF F hematocrit 47.6 % 35.7-4 5.7 high Not Available [facility] (Lab) [address] [place], [address], 01/08/2022 18:58:15 01/09/20 22 01/08/2022 CBC/C OMPLE TE BLD COUNT W/DIF F mean red cell volume 99.0 fL 82.0-9 9.0 Not Available [facility] (Lab) [address] [place], [address], 01/08/2022 18:58:15 01/09/20 22 01/08/2022 CBC/C OMPLE TE BLD COUNT W/DIF F mean red cell hemoglobin 32.8 pg 27.0-3 3.0 Not Available [facility] (Lab) [address] [place], [address], 01/08/2022 18:58:15 01/09/20 22 01/08/2022 CBC/C OMPLE TE BLD COUNT W/DIF F mean RBC HGB concentratio n 33.2 g/dL 31.0-3 6.0 Not Available [facility] (Lab) [address] [place], [address], 01/08/2022 18:58:15 01/09/20 22 01/08/2022 CBC/C OMPLE TE BLD COUNT W/DIF F red cell distribution width 12.6 % 11.8-1 5.5 Not Available [facility] (Lab) [address] [place], [address], 01/08/2022 18:58:15 01/09/20 22 01/08/2022 CBC/C OMPLE TE BLD COUNT W/DIF F platelets 288 x10'3 /uL 150-40 0 Not Available [facility] (Lab) [address] [place], [address], 01/08/2022 18:58:15 01/09/20 22 01/08/2022 CBC/C OMPLE TE BLD COUNT W/DIF F mean platelet volume 10.2 fL 9.0-12 .4 Not Available [facility] (Lab) [address] [place], [address], 01/08/2022 18:58:15 01/09/20 22 01/08/2022 CBC/C OMPLE TE BLD COUNT W/DIF F neutrophils 64.6 % 39.0-7 2.0 Not Available [facility] (Lab) [address] [place], [address], 01/08/2022 18:58:15 01/09/20 22 01/08/2022 CBC/C OMPLE TE BLD COUNT W/DIF F lymphocytes 23.5 % 16.0-4 7.0 Not Available [facility] (Lab) [address] [place], [address], 01/08/2022 18:58:15 01/09/20 22 01/08/2022 CBC/C OMPLE TE BLD COUNT W/DIF F monocytes 8.0 % 5.0-12 .0 Not Available [facility] (Lab) [address] [place], [address], 01/08/2022 18:58:15 01/09/20 22 01/08/2022 CBC/C OMPLE TE BLD COUNT W/DIF F eosinophils 2.8 % 1.0-7. 0 Not Available [facility] (Lab) [address] [place], [address], 01/08/2022 18:58:15 01/09/20 22 01/08/2022 CBC/C OMPLE TE BLD COUNT W/DIF F basophils 0.8 % 0.0-2. 0 Not Available [facility] (Lab) [address] [place], [address], 01/08/2022 18:58:15 01/09/20 22 01/08/2022 CBC/C OMPLE TE BLD COUNT W/DIF F immature granulocytes 0.3 % 0.00-0 .50 Not Available [facility] (Lab) [address] [place], [address], 01/08/2022 18:58:15 01/09/20 22 01/08/2022 CBC/C OMPLE TE BLD COUNT W/DIF F neutrophils, absolute count 5.94 x10'3 /uL 1.5-8. 0 Not Available [facility] (Lab) [address] [place], [address], 01/08/2022 18:58:15 01/09/20 22 01/08/2022 CBC/C OMPLE TE BLD COUNT W/DIF F lymphocytes, absolute count 2.16 x10'3 /uL 1.07-3 .43 Not Available [facility] (Lab) [address] [place], [address], 01/08/2022 18:58:15 01/09/20 22 01/08/2022 CBC/C OMPLE TE BLD COUNT W/DIF F monocytes, absolute count 0.74 x10'3 /uL 0.29-0 .99 Not Available [facility] (Lab) [address] [place], [address], 01/08/2022 18:58:15 01/09/20 22 01/08/2022 CBC/C OMPLE TE BLD COUNT W/DIF F eosinophils, absolute count 0.26 x10'3 /uL 0.02-0 .53 Not Available [facility] (Lab) [address] [place], [address], 01/08/2022 18:58:15 01/09/20 22 01/08/2022 CBC/C OMPLE TE BLD COUNT W/DIF F basophils, absolute count 0.07 x10'3 /uL 0.01-0 .08 Not Available [facility] (Lab) [address] [place], [address], 01/08/2022 18:58:15 01/09/20 22 01/08/2022 CBC/C OMPLE TE BLD COUNT W/DIF F immature granulocytes ,absolute 0.03 x10'3 /uL 0.00-0 .05 Not Available [facility] (Lab) [address] [place], [address], 01/08/2022 18:58:15 01/09/20 22 01/08/2022 CBC/C OMPLE TE BLD COUNT W/DIF F nucleated red blood cells 0.0 % -0 Not Available [facility] (Lab) [address] [place], [address], 01/08/2022 18:58:15 01/09/20 22 01/08/2022 CBC/C OMPLE TE BLD COUNT W/DIF F NRBC# 0.00 x10'3 /uL Not Available [facility] (Lab) [address] [place], [address], 01/08/2022 18:58:15 09/13/20 23 09/13/2023 rapid strep group A, throa t STREP A negati ve Not Available [facility] [address], [place], [address], 09/12/2023 14:24:59 12/20/19 24 12/20/2023 CT, coron rocío calci um score No observ ation record ed. [email or web address] [facility] [address], [place], [address], 03/21/2024 09:11:26 02/15/20 24 02/13/2024 PET, myoca rdial perfu irene No observ ation record ed. [email or web address] [facility] [address], [place], [address], 03/21/2024 09:14:37 05/23/20 24 04/28/2024 mobil e cardi ac telem etry (PROC ) No observ ation record ed. [email or web address] [facility] [address], [place], [address], 06/05/2024 12:51:18 07/05/20 24 06/29/2024 imagi ng/di julietaos tic resul t No observ ation record ed. [facility] [address], [place], [address], 07/05/2024 14:24:31 Result Notes None recorded. Problems Name Problem SNOMED Code Status Onset Date Resolution Date Notes Provider Name and Address Organization Details Recorded Time Scoliosis deformity of spine 661163068 Active 2021 Not Available [facility] 3 00:57:29 Depressive disorder 48665067 Active 2021 Not Available [facility] 3 00:57:29 Mitral valve prolapse 198752116 Active 2021 Not Available [facility] 3 00:57:29 Anxiety 70000627 Active 2021 Not Available [facility] 3 00:57:29 Sore throat 851061194 Active 2022 Sobeida Peacock RN [facility], [employer] 3 14:25:14 Body mass index 30+ - obesity 059526836 Active 2024 MARY BETH Sommer [address] [facility], [place], [address] , edo 5 09:38:23 Pain of multiple joints 56211753 Active 2024 MARY BETH Sommer [address], [place], [address] , edo 5 09:43:40 Vertigo 051453385 Active 2024 MARY BETH Sommer [address], [place], [address] , edo 5 09:47:05 Problem Notes None recorded. Procedures Surgical History Date Name Laterality Status Provider Name and Address Organization Details Recorded Time 4 Ablation completed ROSITA Cleveland [employer] 03/04/2025 09:26:07 hysterectomy completed ROSITA [place] [employer] [facility] 03/04/2025 09:27:06 Imaging Results None recorded. Procedure Notes None recorded. Medical Equipment None Reported. Allergies Allergen ID Allergen Name Allergen Category Reaction Reaction Severity Criticality Documentation Date Start Date Code Code System Note Provider Name and Address Organization Details Recorded Time 85378 codeine medicatio n hallucina tions severe high 09/09/2023 2670 RxNorm Priscilla Ulrich LPN null, [employer] [facility] 3 16:41:23 Medications Name Sig Start Date Stop Date Status Note LastModified by Organization Details LastModified Time metoprolol succinate ER 50 mg tablet,exten ded release 24 hr TAKE 1 TABLET BY MOUTH EVERY DAY active Not Available Not Available No t Available citalopram 10 mg tablet TAKE 1 TABLET BY MOUTH EVERY DAY 09/09 completed Not Available Not Available Not Available meloxicam 15 mg tablet Take 1 tablet every day by oral route. 2024 active Not Available Not Available Not Avai lable prednisone 20 mg tablet Take 2 tablets every day by oral route for 5 days. 09/09 completed Not Available Not Available Not Available cyanocobalam in (vit B-12) 1,000 mcg tablet Take 1 tablet by oral route. 09/09 completed Not Available Not Available Not Available amoxicillin 875 mg tablet Take 1 tablet every 12 hours by oral route for 10 days. 09/09 completed Not Available Not Available Not Available citalopram 20 mg tablet TAKE 1 TABLET BY MOUTH EVERY DAY 09/09 completed Not Available Not Available Not Available magnesium oxide 400 mg (241.3 mg magnesium) tablet TAKE 1 TABLET BY MOUTH TWICE DAILY active Not Available Not Available No t Available meclizine 25 mg tablet TAKE 1 TABLET BY MOUTH THREE TIMES DAILY active Not Available Not Available No t Available benzonatate 100 mg capsule TAKE 1 CAPSULE BY MOUTH THREE TIMES DAILY NEEDED FOR COUGH 09/09 completed Not Available Not Available Not Available flecainide 50 mg tablet active Not Available Not Available Not Available metoprolol succinate ER 25 mg tablet,exten ded release 24 hr TAKE 1 TABLET BY MOUTH DAILY 12/04 completed Not Available Not Available Not Available ergocalcifer ol (vitamin D2) 1,250 mcg (50,000 unit) capsule Take 1 capsule every week by oral route. 09/09 completed Not Available Not Available Not Available azelastine 137 mcg (0.1 %) nasal spray USE 1 SPRAY IN EACH NOSTRIL EVERY 12 HOURS 09/09 completed Not Available Not Available Not Available cefuroxime axetil 500 mg tablet TAKE 1 TABLET BY MOUTH EVERY 12 HOURS 09/09 completed Not Available Not Available Not Available irbesartan 300 mg tablet TAKE 1 TABLET BY MOUTH DAILY active Not Available Not Available No t Available rosuvastatin 40 mg tablet TAKE 1 TABLET BY MOUTH EVERY DAY active Not Available Not Available No t Available Vitals Date Recorded Body mass index (BMI) Body height Oxygen saturation Heart rate Body temperature Body weight Systolic And Diastolic Provider Name and Address Organization Details Last Updated DateTime 2 35.4 kg/m2 160.02 cm 99 % 99 /min 98.5 [degF] 34464.4 7 g 120/90 mm[Hg] Not Available [facility] 3 00:57:16 Date Recorded Body mass index (BMI) Body height Oxygen saturation Heart rate Body temperature Body weight Systolic And Diastolic Provider Name and Address Organization Details Last Updated DateTime 2 35.1 kg/m2 160.02 cm 96 % 87 /min 97.3 [degF] 35690.2 9 g 130/90 mm[Hg] Not Available [facility] 3 00:57:16 Date Recorded Body height Body mass index (BMI) Body weight Body temperature Heart rate Oxygen saturation Systolic And Diastolic Provider Name and Address Organization Details Last Updated DateTime 5 162.56 cm 33.6 kg/m2 13337.1 g 97.8 [degF] 71 /min 98 % 146/90 mm[Hg] ROSITA [place] [email or web address] 5 09:34:35 Date Recorded Body weight Body mass index (BMI) Body height Body temperature Heart rate Oxygen saturation Systolic And Diastolic Provider Name and Address Organization Details Last Updated DateTime 3 63475.7 7 g 32.1 kg/m2 162.56 cm 97.2 [degF] 101 /min 99 % 210/108 mm[Hg] Priscilla Ulrich LPN [email or web address] [facility] [employer] 16:40:28 Date Recorded Body height Provider Name an d Address Organization Details Last Updated DateTime 09/12/2023 162.56 cm [place] [facility] [employer] [facility] 09/12/2023 15:42:32 Social History Question Answer Notes LastModified by Organizat ion Details LastModified Time Tobacco Smoking Status Former Smoker Not Available [facility] 12/02/2022 00:56:44 What Is Your Level Of Caffeine Consumption? Heavy [id number] Information not available 12/02/2022 In The 14 Days Before Symptom Onset, Have You Had Close Contact With A Laboratory-confi rmed COVID-19 While That Case Was Ill? No [id number] Information not available 12/02/2022 In The 14 Days Before Symptom Onset, Have You Had Close Contact With A Person Who Is Under Investigation For COVID-19 While That Person Was Ill? No [id number] Information not available 12/02/2022 What Type Of Diet Are You Following? REGULAR [id number] Information not available 12/02/2022 Have There Been Any Changes To Your Family Or Social Situation? Yes [id number] Information not available 12/02/2022 When Did You Quit Smoking? 1-5yearssincelbhumika cervantes Information not available 03/04/2025 Are There Any Guns Present In Your Home? Yes [id number] Information not available 12/02/2022 Do You Use Insect Repellent Routinely? No Information not available 03/04/2025 Where Do You Live? [place] [id number] Information not available 12/02/2022 What Was The Date Of Your Most Recent Tobacco Screening? 03/04/2025 Information not available 03/04/2025 Do You Have Any Pets? Yes Information not available 03/04/2025 What Is Your Relationship Status? Single Information not available 03/04/2025 Do You Use Your Seat Belt Or Car Seat Routinely? Yes Information not available 03/04/2025 Do You Have Smoke And Carbon Monoxide Detectors In Your Home? Yes [id number] Information not available 12/02/2022 Are You Passively Exposed To Smoke? Yes [id number] Information not available 12/02/2022 Are There Any Smokers In Your House? Yes [id number] Information not available 12/02/2022 Do You Participate In Social Media? Yes Information not available 03/04/2025 Do You Use Sunscreen Routinely? Yes [id number] Information not available 12/02/2022 Has Tobacco Cessation Counseling Been Provided? No [id number] Information not available 12/02/2022 Have You Recently Traveled Abroad? No [id number] Information not available 12/02/2022 Do You Have Any Dietary Restrictions? No [id number] Information not available 12/02/2022 Sex: Unknown Functional Status Question Answer Note LastModified by Organizat ion Details LastModified Time Do you use any illicit or recreational drugs? No [id number] Information not available 12/02/2022 Do you or have you ever used any other forms of tobacco or nicotine? Yes [id number] Information not available 12/02/2022 What is your level of alcohol consumption? None [id number] Information not available 12/02/2022 Do you or have you ever used smokeless tobacco? Never used smokeless tobacco Information not available 03/04/2025 Are you currently employed? Yes Information not available 03/04/2025 Do you or have you ever used e-cigarettes or vape? Current user of electronic cigarettes Information not available 03/04/2025 What is your exercise level? Moderate [id number] Information not available 12/02/2022 Mental Status Question Answer Note LastModified by Organization D etails LastModified Time Do you feel stressed (tense, restless, nervous, or anxious, or unable to sleep at night)? [id number] Information not available 03/04/2025 Family History Relationship Description Onset Age of this Age Resolved Age Notes LastModified by Organization Details LastModified Time Father Hypertensive disorder [id number] Not available 12/02/2022 00:57:02 Medical History No medical history recorded. Gynecological History Statement/Question Response Current Control Method Hysterectom y Obstetrics History GPAL:G 0 P 0 0 0 0 Past Encounters Encounter ID Performer Location Encounter Start Date Encounter Closed Date Diagnosis/Indication Diagnosis SNOMED-CT Code Diagnosis ICD10 Code Diagnosis IMO Codes Diagnosis Note [id number] Giulai Kirkpatrick MD [facility] [address] [facility] [address] [place] [address] 01/08/2022 00:00:00 01/08/2022 14:12:27 [id number] SOUMYA Adams [facility] [address] [place] [address] 02/10/2022 00:00:00 02/10/2022 20:11:37 [id number] Giulia Kirkpatrick MD [address] [place] [address] 09/09/2023 16:35:28 09/09/2023 17:20:46 Mitral valve prolapse [id number] I34.1 -pt takes metoprolol for this issue-was seen by cardiologi in the past, but her DrUlises has left practice-n otes periods of palpitatio ns, valsalva maneuver's no longer working to resolve symptoms-s he notes periods of fatigue and a feeling of pressure being applied to the neck-she has been out of her medication for approx 1 month-bp today noted to be 210/108, 101 today, olmos currently, no sob, cp (she does note periods of time where shooting pains go down her arm)-encou raged to f/u with the ER if she develops unresolvin g sob/cp-inc reasing metoprolol to 50mg-EKG obtained-l cristin qt noted-labs obtained-c ardiac referral given [id number] Giulia Kirkpatrick MD [facility] [address] [place] [address] 09/12/2023 15:40:28 11/18/2023 16:19:22 [id number] SOUMYA Sommer-Oj [facility] Primary [address] [place] [address] 03/04/2025 09:18:31 03/04/2025 09:58:49 General examination of patient [id number] Z00.00 Z13.29 Z13.6 Z13.1 [id number] Discussed medication compliance and routine follow up.Discuss ed healthy diet and routine exercise.Kendal choudhurywed vaccine records and made recommenda tions as needed.Enc ouraged annual eye and dental exams, as well as twice yearly dental cleanings. Will check screening labs as listed below. Mitral valve prolapse 40 [id number] I34.1 Was seeing [facility], they no longer take her insurance. [facility].D enies any concerns at this time. Body mass index 30+ - obesity [id number] E66.9 [id number] Weight: 196 poundsBMI: 33.6 Pain of mu ltiple joints [id number] M25.50 [id number] Will check labs as listed below. Vertigo [id number] R42 55329 Will treat as listed below. Health Concerns Section Related Observation LastModified by Organization Detai ls LastModified Time None Recorded Concern Status LastModified by Organization Details LastModified Time None Recorded Advance Directives Directive None Recorded Payers Insurance Date Sequence Insurance Name Policy Number Policy Valdez Covered Member ID Valdez Member ID Guarantor Name 03/04/2025 1 [facility] ON OR AFTER 04/02/21 (MEDICAID REPLACEMENT - HMO) Nora Palma [id number] Nora Palma Notes Date Note Type Note Provider Name and Address Organization Details Recorded Time 09/09/2023 text/html Pt is here for med f/u MARY BETH Nicole [address], [address], [facility] 09/09/2023 17:18:07 03/04/2025 text/html ROS as noted in the HPI Patient is a 44 year old female that presents to the office to establish care. Patient was previously seeing Dr. Kirkpatrick. Was seeing [facility] and was just referred to [facility] due to insurance, scheduled in May 15. labs-orderedWWE- hysterectomy (no cancer)Mammogram- ordered ([facility])Colonosc opy- referralFlu- declinesCovid- declinesTdap- awareShingles-age 48 MARY BETH Sommer [address] [facility], [facility] [address], [place], [address], [place] - [facility] 03/04/2025 09:53:28 OBGyn Episode No OBEpisode recorded.
--- OUTSIDE RECORDS SUMMARY | 2025-09-27 17:50 | XMS_ITS | Clinical Summary ---
Author Organization [facility] Address [address] [place] [address] Care Team Providers Care Shoe Handler Name Role Phone Giulia Kirkpatrick MD Primary [...] mg total) by mouth daily 05/16/2024 Active Active Problems Problem Noted Date Diagnosed Date Hx of atrial flutter 06/28/2024 Palpitations 05/07/2024 V-tach 05/04/2024 Depressive disorder 01/08/2022 Mitral valve prolapse 01/08/2022 Scoliosis deformity of spine 01/08/2022 Anxiety disorder 02/20/2010 Obesity 02/20/2010 Tobacco dependence syndrome 02/20/2010 Encounters Date Type Department Care Team Description 07/17/2025 8:15 AM CDT Ancillary Procedure [facility] [address] [place] [address] Palpitations; Paroxysmal atrial flutter (HCC); H/O cardiac radiofrequency ablation 07/17/2025 Results Follow-Up [facility] [address] [place] [address] Rosy Reeder MD Transthoracic Echo (TTE) Complete W Doppler/CF from Last 3 Months Surgical History Surgery Date Site/Laterality Comments SECTION [...] on file Legal Sex Female 6:04 AM [employer] Gender Identity Not on file Sexual Orientation Not on file Last Filed Vital Signs Vital Sign Reading Time Taken Comments Blood Pressure 120/70 05/15/2025 8:45 AM CDT Pulse 90 05/15/2025 8:45 AM CDT Temperature 36.8 C (98.3 F) 06/29/2024 7:51 AM CDT Respiratory Rate 18 06/29/2024 7:51 AM CDT Oxygen Saturation 98% 05/15/2025 8:45 AM CDT Inhaled Oxygen Concentration - - Weight 88.9 kg (196 lb) 05/15/2025 8:45 AM CDT Height 160 cm (5' 3) 05/15/2025 8:45 AM CDT Body Mass Index 34.72 05/15/2025 8:45 AM CDT Plan of Treatment Health Maintenance Due Date Last Done Comments Breast Cancer Screening-Mammogram 1978 Colon Cancer Screening-Colonoscopy 1980 Depression Screening 1978 Hepatitis C Screening 1978 DTaP/Tdap/Td Vaccine (1 - Tdap) 1989 Hepatitis B Screening 1996 Regular Well Visit/Exam 18-64 1996 Covid-19 Vaccine (3 - 2024-2 6 season) 2025 01/21/2021, 12/21/2020 Influenza Vaccine (#1) 2025 9, 09/04/2018, 07/03/2017 Pneumococcal vaccine <65 Aged Out No longer eligible based on patient's age to complete this topic Procedures Procedure Name Priority Date/Time Associated Diagnosis Comments TRANSTHORACIC ECHO (TTE) COMPLETE W DOPPLER/CF WO CONTRAST Routine 07/17/2025 9:15 AM CDT Palpitations Paroxysmal atrial flutter (HCC) H/O cardiac radiofrequency ablation from Last 3 Months Results * TRANSTHORACIC ECHO (TTE) COMPLETE W DOPPLER/CF WO CONTRAST (07/17/2025 9:15 AM CDT) EF Mod BP 60 % CONS SCIMAGE Anatomical Region Laterality Modality Ultrasound 07/17/2025 8:27 AM CDT Narrative 07/17/2025 11:21 AM CDT [facility] [address] [facility] [address], [place] [address] [address] [facility] [address], [place] [address] P:[phone] P:[phone] Echocardiographic Report Patient Name: ANNABEL JANUARY, Allison : 1980 Study Date: 07/17/2025 8:27:22 AM Sex: F Car Starter: Fannie Chavez)(CT), [facility] Location: [facility] Provider: ROSY EREDER Height(Cm): 160 BSA: 1.99 Weight(Kg): 88.9 Heart Rate: 91 BP: 120 / 70 Quality: Good Order Provider: ROSY REEDER PROCEDURES: Echocardiographic Report: Transthoracic echocardiogram with complete 2D, M-Mode, and color Doppler examination. With Strain Analysis. INDICATIONS: R00.2 Palpitations, I48.92 Unspecified atrial flutter, and Z98.890 Other specified postprocedural states. MEASUREMENTS: 2D/MM Value Range Doppler Value Range EF Mod BP 60 % [ 54 - 74 ] MARINA Vmax 2.25 cm2 [ 2.00 - 4.00 ] LV GLS -14.86 % AV Mean PG 5 mmHg LVIDd 2D 4.64 cm [ 3.80 - 5.20 ] AV Peak Abimael 1.61 m/s [ 1.00 - 1.70 ] LVIDs 2D 3.08 cm [ 2.20 - 3.50 ] AV Peak PG 10 mmHg LVPWd 2D 1.00 cm [ 0.60 - 0.90 ] AV VTI 31.59 cm IVSd 2D 0.99 cm [ 0.60 - 0.90 ] LVOT Diam 2.02 cm [ 1.70 - 2.10 ] AoR Diam 2D 3.04 cm [ 2.70 - 3.70 ] LVOT Peak Abimael 1.13 m/s [ 0.70 - 1.10 ] LA Volume 28.19 ml [ 22.00 - 52.00 ] LVOT VTI 22.92 cm LA Volume Index 14 cc/m2 [ 16 - 28 ] MV E Peak Abimael 0.99 m/s [ 0.60 - 1.30 ] RA Volume 17.53 ml MV A Peak Abimael 0.78 m/s [ 1.00 - 1.20 ] MV Decel Time 177 msec [ 104 - 258 ] PV Peak Abimael 1.03 m/s [ 0.40 - 0.80 ] TR Peak Abimael 2.41 m/s [ 1.00 - 2.80 ] TR Peak PG 23 mmHg RVSP 28.00 mmHg [ 10.00 - 36.00 ] RV S` 9.56 mmHg Lateral E` 0.10 m/s [ 0.10 - 0.15 ] Septal E` 0.06 m/s [ 0.08 - 0.15 ] E` 0.08 m/s E/E` 12 Tapse 2.05 cm [ 1.71 - 5.00 ] 2D/MM Value Range Doppler Value Range - FINDINGS: Interpretation Site: Exam was interpreted at [facility]. Left Ventricle: Normal left ventricular size. Left ventricular wall thickness upper limits of normal. Normal global left ventricular systolic function. Normal left ventricular diastolic function. Ejection fraction is measured at 60 %. Global Longitudinal Strain is - 15 %. Right Ventricle: Normal right ventricular size. Normal right ventricular systolic function. Left Atrium: The left atrium is normal in size. Right Atrium: The right atrium is normal in size. Atrial Septum: Normal atrial septum. Mitral Valve: Normal appearance of the mitral valve. No mitral valve regurgitation is seen. Aortic Valve: Normal appearance of the aortic valve. No evidence of hemodynamically significant aortic stenosis by Doppler. Trileaflet aortic valve. Tricuspid Valve: Normal appearance of the tricuspid valve. Estimated peak RVSP is 28 mmHg. Trivial regurgitation in the tricuspid valve. Pulmonic Valve: Normal appearance of the pulmonic valve. Pericardium: Normal pericardium with no significant pericardial effusion. Aorta: Normal aortic root. IVC: Normal size and normal respiratory collapse consistent with normal right atrial pressure (<5 mmHg). CONCLUSIONS: Normal left ventricular size. Left ventricular wall thickness upper limits of normal. Normal LV systolic and diastolic function. Ejection fraction is measured at 60 %. Global Longitudinal Strain is -15 %. Normal right ventricular size and systolic function. Normal Doppler with normal valvular structure and function. Electronically Signed By: Rosy Reeder MD, [facility] 07/17/2025 11:20:53 AM CDT Procedure Note Rosy Reeder MD - 07/17/2025 [facility] [address], [place] [address] [address] [facility] [address], [place] [address] P:[phone] P:[phone] Echocardiographic Report Patient Name: NORA JIN M : 1980 Study Date: 07/17/2025 8:27:22 AM Sex: F Car Starter: Fannie Chavez)(CT), [facility] Location: [facility] Provider: ROSY REEDER Height(Cm): 160 BSA: 1.99 Weight(Kg): 88.9 Heart Rate: 91 BP: 120 / 70 Quality: Good Order Provider: ROSY REEDER PROCEDURES: Echocardiographic Report: Transthoracic echocardiogram with complete 2D, M-Mode, and color Dopplerexamination. With Strain Analysis. INDICATIONS: R00.2 Palpitations, I48.92 Unspecified atrial flutter, and Z98.890 Otherspecified postprocedural states. MEASUREMENTS: 2D/MM Value Range Doppler ValueRange EF Mod BP 60 % [ 54 - 74 ] MARINA Vmax 2.25cm2 [ 2.00 - 4.00 ] LV GLS -14.86 % AV Mean PG 5mmHg LVIDd 2D 4.64 cm [ 3.80 - 5.20 ] AV Peak Abimael 1.61m/s [ 1.00 - 1.70 ] LVIDs 2D 3.08 cm [ 2.20 - 3.50 ] AV Peak PG 10mmHg LVPWd 2D 1.00 cm [ 0.60 - 0.90 ] AV VTI 31.59cm IVSd 2D 0.99 cm [ 0.60 - 0.90 ] LVOT Diam 2.02cm [ 1.70 - 2.10 ] AoR Diam 2D 3.04 cm [ 2.70 - 3.70 ] LVOT Peak Abimael 1.13m/s [ 0.70 - 1.10 ] LA Volume 28.19 ml [ 22.00 - 52.00 ] LVOT VTI 22.92cm LA Volume Index 14 cc/m2 [ 16 - 28 ] MV E Peak Abimael 0.99m/s [ 0.60 - 1.30 ] RA Volume 17.53 ml MV A Peak Abimael 0.78m/s [ 1.00 - 1.20 ] MV Decel Time 177 msec [ 104 - 258 ] PV Peak Abimael 1.03 m/s [ 0.40 - 0.80 ] TR Peak Abimael 2.41 m/s [ 1.00 - 2.80 ] TR Peak PG 23 mmHg RVSP 28.00 mmHg [ 10.00 - 36.00 ] RV S` 9.56 mmHg Lateral E` 0.10 m/s [ 0.10 - 0.15 ] Septal E` 0.06 m/s [ 0.08 - 0.15 ] E` 0.08 m/s E/E` 12 Tapse 2.05 cm [ 1.71 - 5.00 ] 2D/MM Value Range Doppler ValueRange - FINDINGS: Interpretation Site: Exam was interpreted at [facility]. Left Ventricle: Normal left ventricular size. Left ventricular wall thickness upper limitsof normal. Normal global left ventricular systolic function. Normal left ventriculardiastolic function. Ejection fraction is measured at 60 %. Global LongitudinalStrain is - 15 %. Right Ventricle: Normal right ventricular size. Normal right ventricular systolicfunction. Left Atrium: The left atrium is normal in size. Right Atrium: The right atrium is normal in size. Atrial Septum: Normal atrial septum. Mitral Valve: Normal appearance of the mitral valve. No mitral valve regurgitation isseen. Aortic Valve: Normal appearance of the aortic valve. No evidence of hemodynamicallysignificant aortic stenosis by Doppler. Trileaflet aortic valve. Tricuspid Valve: Normal appearance of the tricuspid valve. Estimated peak RVSP is 28 mmHg.Trivial regurgitation in the tricuspid valve. Pulmonic Valve: Normal appearance of the pulmonic valve. Pericardium: Normal pericardium with no significant pericardial effusion. Aorta: Normal aortic root. IVC: Normal size and normal respiratory collapse consistent with normal rightatrial pressure (<5 mmHg). CONCLUSIONS: Normal left ventricular size. Left ventricular wall thickness upper limitsof normal. Normal LV systolic and diastolic function. Ejection fraction is measuredat 60 %. Global Longitudinal Strain is -15 %. Normal right ventricular size and systolic function. Normal Doppler with normal valvular structure and function. Electronically Signed By: Rosy Reeder MD, [facility] 07/17/2025 11:20:53 AM CDT Rosy Reeder MD CV ECHO PROCEDURES Final Result from Last 3 Months Insurance [id number] [place] [address] [facility] [place] [address] [address] Care Teams Shoe Handler Relationship Specialty Start Date End Date Giulia Kirkpatrick MD [address] [place] [address] [place] [id number] PCP - General Family Medicine 07/24/22
--- OUTSIDE RECORDS SUMMARY | 2025-09-27 17:50 | XMS_ITS | Clinical Summary ---
Author Organization [facility] Address [facility] [place] [address] Care Team Providers Care House Visitor Name Role Phone Giulia Kirkpatrick MD Primary Care Provider [phone] Allergies No known active allergies Medications metoprolol [...] Mammogram Screening 2018 COVID-19 Vaccine (3 - 2024-2 6 season) 2025 01/21/2021, 12/21/2020 Influenza Adult (#1) 2025 07/05/2019, 09/04/2018, 07/03/2017 Hepatitis A Vaccines Aged Out No long er eligible based on patient's age to complete this topic Meningococcal B Vaccine Aged Out No l [...] patient's age to complete this topic Insurance [employer] Care Teams House Visitor Relationship Specialty Start Date End Date Giulia Kirkpatrick MD [address] [place] [address] [place] [address] PCP - General FAMILY PRACTICE 03/27/24
--- OUTSIDE RECORDS SUMMARY | 2025-09-27 17:50 | XMS_ITS | Patient Health Record ---
Author Organization [facility], Address [address] [place] [address] Care Team Providers Care Reservation Agent Name Role Phone J Luis Malin Unavailable [phone] Eladio Carranza Unavailable Unavailable Reason For Referral No Information Medications Medication SIG (Take, Route, Fr equency, Duration) Notes Start Date End Date Status Metoprolol Succinate Active Social History Section Notes: Single with 2 children. Parrish es alcohol use. Smokes 1 pack a day. 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 Plan Of Treatment No Information Insurance Providers Payer Name Payer Address Payer Phone Subscriber Number Group Number Insured Name Patient Relationship to Insured Coverage Start Date Coverage End Date Lien 1 January Self - patient is the insured Medical (General) History Medical History History ICD Code Hypertension Anxiety Mitral valve prolapse Surgical History Surgery Date(Month/Year) x 2 Hysterectomy
[2025-09-27 18:24] VITALS: BP 157/108; PULSE 108; RESP 16; TEMP 36.6; O2SAT 97
--- NOTE | 2025-09-27 18:26 | ED.LOWEXIN ---
HPI - Extremity Injury (Lower) General Chief Complaint: Extremity Injury, Lower <Lynn Otero APRN - Last Filed: 09/27/25 18:32> Stated Complaint: L. leg pain <Lynn Otero APRN - Last Filed: 09/27/25 18:32> Time Seen by Provider: 09/27/25 18:26 <Lynn Otero APRN - Last Filed: 09/27/25 18:32> Focused HPI: Patient is a 45-year-old female who presents to the ER with left knee pain. She reports approximately 4 months ago she tore her meniscus. Patient's sees an orthopedic surgeon, Dr. Small, who has ordered an MRI for patient. She reports 2 days ago she started experiencing significant pain and swelling, specifically in her left calf. Patient reports she spoke to her orthopedic surgeon earlier today who advised her to come to the ER to rule out a DVT. She denies any chest pain, shortness of breath, left hip pain or left ankle pain. GENERAL: Well-appearing, well-nourished, and in mild distress with ambulation. HEAD: Normocephalic, atraumatic. CHEST: Clear to auscultation. ?No respiratory distress. HEART: Regular rate and rhythm.? NEURO: ?Alert and oriented x3. Patient screened in triage and initial orders placed.? ?Additional care and disposition to be based upon?diagnostic testing and treatment. <Lynn Otero APRN - Last Filed: 09/27/25 18:32> Related Data Home Medications: Home Medications ?Medication ?Instructions ?Recorded ?Confirmed ?Last Taken ?Type irbesartan 300 mg tablet 300 mg DIRECTED 10/27/23 10/27/23 Unknown History flecainide 50 mg tablet mg 10/19/24 Unknown History magnesium oxide 400 mg (241.3 mg mg 10/19/24 Unknown History magnesium) tablet metoprolol succinate 50 mg mg PO 10/19/24 Unknown History tablet,extended release 24 hr rosuvastatin 40 mg tablet mg 10/19/24 Unknown History meloxicam 15 mg tablet mg 05/13/25 Unknown History <Lynn Otero APRN - Last Filed: 09/27/25 18:32> Allergies/Adverse Reactions: Allergies Allergy/AdvReac Type Severity Reaction Status Date / Time No Known Allergies Allergy Verified 09/27/25 17:49 <Lynn Otero APRN - Last Filed: 09/27/25 18:32> Review of Systems Review of Systems: All systems reviewed & are unremarkable except as noted in HPI and below <Codi Amaro PA-C - Last Filed: 09/27/25 21:35> PMFSH Past Medical History Medical History: Medical History Atrial fibrillation HTN (hypertension) MVP (mitral valve prolapse) <Lynn Otero APRN - Last Filed: 09/27/25 18:32> Surgical History Surgical History: Surgical History History of cardiac radiofrequency ablation No significant past surgical history <Lynn Otero APRN - Last Filed: 09/27/25 18:32> Family History Family History: Family History Father Diabetes mellitus Hypertension Cerebrovascular accident Mother Depression Sibling Depression Other Depression <Lynn Otero APRN - Last Filed: 09/27/25 18:32> Social History Social History: Social History Smoking status: Current some day smoker Alcohol intake: never Substance use: never Substance use type: does not use Gender identity (if verbalized by the patient): Female <Lynn Otero APRN - Last Filed: 09/27/25 18:32> Exam Narrative: GENERAL: Well-appearing, well-nourished, and in no acute distress. HEAD: Normocephalic, atraumatic. EYES: EOMI. EXTREMITIES: Decreased active range of motion in the left knee due to pain. Mild edema about the left knee anteriorly. Normal DP pulse SKIN: Warm, dry, no rash. NEURO: No focal deficits. Alert and oriented x3. PSYCH: Normal mood and affect <Codi Amaro PA-C - Last Filed: 09/27/25 21:35> Course Vital Signs Vital signs: Vital Signs Temperature 97.9 F 09/27/25 18:24 Pulse Rate 108 H 09/27/25 18:24 Respiratory Rate 16 09/27/25 18:24 Blood Pressure 157/108 H 09/27/25 18:24 Pulse Oximetry 97 09/27/25 18:24 Temperature 97.9 F 09/27/25 18:24 Pulse Rate 108 H 09/27/25 18:24 Respiratory Rate 16 09/27/25 18:24 Blood Pressure 157/108 H 09/27/25 18:24 Pulse Oximetry 97 09/27/25 18:24 <Lynn Otero, [employer] DEVELOPER - Last Filed: 09/27/25 18:32> Vital Signs Temperature 97.9 F 09/27/25 18:24 Pulse Rate 108 H 09/27/25 18:24 Respiratory Rate 16 09/27/25 18:24 Blood Pressure 157/108 H 09/27/25 18:24 Pulse Oximetry 97 09/27/25 18:24 Temperature 97.9 F 09/27/25 18:24 Pulse Rate 108 H 09/27/25 18:24 Respiratory Rate 16 09/27/25 18:24 Blood Pressure 157/108 H 09/27/25 18:24 Pulse Oximetry 97 09/27/25 18:24 <Codi Amaro PA-C - Last Filed: 09/27/25 21:35> [facility] Narrative Medical decision making narrative: Patient presents to emergency department for left knee pain. Started after standing from kneeling position. She is neurovascularly intact. Left knee x-ray without acute osseous abnormalities. Ultrasound venous Doppler without evidence of DVT. Patient given crutches. Instructed on continued follow-up with orthopedics <Codi Amaro PA-C - Last Filed: 09/27/25 21:35> Differential Diagnosis Differential Diagnosis: DVT, knee sprain <RAFFI Rosa Last Filed: 09/27/25 21:35> Imaging Data Radiologist's impression: ITS Impressions Venous Doppler Study 09/27/25 19:06 IMPRESSION: 1: No lower extremity deep venous thrombosis. Knee X-Ray 09/27/25 21:19 IMPRESSION: 1: NO ACUTE BONE OR JOINT ABNORMALITY IDENTIFIED. <Lynn Otero, VIOLETTA - Last Filed: 09/27/25 18:32> ITS Impressions Venous Doppler Study 09/27/25 19:06 IMPRESSION: 1: No lower extremity deep venous thrombosis. Knee X-Ray 09/27/25 21:19 IMPRESSION: 1: NO ACUTE BONE OR JOINT ABNORMALITY IDENTIFIED. <Codi Amaro PA-C - Last Filed: 09/27/25 21:35> Critical Care Time Critical Care Time Critical Care Time: No <Codi Amaro PA-C - Last Filed: 09/27/25 21:35> Discharge Plan Discharge Clinical Impression: Knee sprain Qualifiers: Encounter type: initial encounter Involved ligament of knee: unspecified ligament Laterality: left Qualified Code(s): S83.92XA - Sprain of unspecified site of left knee, initial encounter <Lynn Otero APRN - Last Filed: 09/27/25 18:32> Patient Disposition: Home <Lynn Otero APRN - Last Filed: 09/27/25 18:32> Condition: Stable <Lynn Otero APRN - Last Filed: 09/27/25 18:32> Instructions: Knee Sprain (ED) <Lynn Otero APRN - Last Filed: 09/27/25 18:32> Additional Instructions: Return to the ER if you experience fever, redness and swelling of your extremity, numbness or any other symptoms that are concerning to you Wear brace and use crutches. No weight on the affected leg. Ice and elevate extremity. Pain medication as needed and directed. Follow up with your orthopedics doctor for further care. <Lynn Otero APRN - Last Filed: 09/27/25 18:32> Patient Language: Cuban <Lynn Otero APRN - Last Filed: 09/27/25 18:32> Prescriptions: New hydrocodone-acetaminophen 5-325 mg tablet 1 tablet PO Q6H PRN (Reason: pain) Qty: 10 0RF No Action metoprolol succinate 50 mg tablet extended release 24 hr PO magnesium oxide 400 mg (241.3 mg magnesium) tablet flecainide 50 mg tablet rosuvastatin 40 mg tablet meloxicam 15 mg tablet irbesartan 300 mg tablet 300 mg DIRECTED <Lynn Otero, VIOLETTA - Last Filed: 09/27/25 18:32> Follow-up/Referrals: Seb Small MD [Physician, Orthopedics] Benedicto,Samaria Reyes NP [Primary Care Provider, Unknown] <Lynn Otero, VIOLETTA - Last Filed: 09/27/25 18:32>
--- NOTE | 2025-09-27 20:54 | ED.LOWEXIN ---
HPI - Extremity Injury (Lower) General Chief Complaint: Extremity Injury, Lower Stated Complaint: L. leg pain Time Seen by Provider: 09/27/25 18:26 Source: patient Mode of arrival: wheelchair Limitations: no limitations History of Present Illness HPI Narrative: This is a 45 year old female that presents to the ER for left knee pain, swelling. Related Data Home Medications ?Medication ?Instructions ?Recorded ?Confirmed ?Last Taken ?Type irbesartan 300 mg tablet 300 mg DIRECTED 10/27/23 10/27/23 Unknown History flecainide 50 mg tablet mg 10/19/24 Unknown History magnesium oxide 400 mg (241.3 mg mg 10/19/24 Unknown History magnesium) tablet metoprolol succinate 50 mg mg PO 10/19/24 Unknown History tablet,extended release 24 hr rosuvastatin 40 mg tablet mg 10/19/24 Unknown History meloxicam 15 mg tablet mg 05/13/25 Unknown History Allergies Allergy/AdvReac Type Severity Reaction Status Date / Time No Known Allergies Allergy Verified 09/27/25 17:49 [facility] Past Medical History Medical History Atrial fibrillation HTN (hypertension) MVP (mitral valve prolapse) Surgical History Surgical History History of cardiac radiofrequency ablation No significant past surgical history Family History Family History Father Diabetes mellitus Hypertension Cerebrovascular accident Mother Depression Sibling Depression Other Depression Social History Social History Smoking status: Current some day smoker Alcohol intake: never Substance use: never Substance use type: does not use Gender identity (if verbalized by the patient): Female Course Vital Signs Vital signs: Vital Signs Temperature 97.9 F 09/27/25 18:24 Pulse Rate 108 H 09/27/25 18:24 Respiratory Rate 16 09/27/25 18:24 Blood Pressure 157/108 H 09/27/25 18:24 Pulse Oximetry 97 09/27/25 18:24 Temperature 97.9 F 09/27/25 18:24 Pulse Rate 108 H 09/27/25 18:24 Respiratory Rate 16 09/27/25 18:24 Blood Pressure 157/108 H 09/27/25 18:24 Pulse Oximetry 97 09/27/25 18:24 MDM Imaging Data Radiologist's impression: ITS Impressions Venous Doppler Study 09/27/25 19:06 IMPRESSION: 1: No lower extremity deep venous thrombosis. Discharge Plan Discharge Patient Language: Cypriot Prescriptions: No Action metoprolol succinate 50 mg tablet extended release 24 hr PO magnesium oxide 400 mg (241.3 mg magnesium) tablet flecainide 50 mg tablet rosuvastatin 40 mg tablet meloxicam 15 mg tablet irbesartan 300 mg tablet 300 mg DIRECTED Follow-up/Referrals: Benedicto,Samaria Reyes NP [Primary Care Provider, Unknown]
[2025-09-27] MEDS: oxyCODONE HCL (*CRX) 5 MG TAB IR PO (21:20)
[2025-09-27 22:10] VITALS: PULSE 102; RESP 18; TEMP 36.6; O2SAT 98
== END 2025-09-27 22:15 | disposition home or self-care (01) ==
PROVIDERS: Emergency Provider Physician Assistant; PCP Nurse Practitioner Family
DX: S83.92XA Sprain of unspecified site of left knee, initial encounter (principal); I10 Essential (primary) hypertension; I48.91 Unspecified atrial fibrillation; I34.1 Nonrheumatic mitral (valve) prolapse; F17.200 Nicotine dependence, unspecified, uncomplicated; X50.9XXA Other and unspecified overexertion or strenuous movements or postures, initial encounter
CPT/HCPCS: 73564; 93971; 99284; A9270